=== PATIENT | male | born 1955 | race Two or more races ===

== ENCOUNTER 2023-05-11 07:17 | Outpatient (OUT) | payer MEDICARE, SELFPAY ==
[2023-05-11 07:51] LABS: Basophils Absolute Auto 0.1 10^3/uL (0.0-0.1); Eosinophils Absolute Auto 0.5 10^3/uL (0.0-0.7); Eosinophils Percent Auto 7.6 % (0.9-7.0); Hematocrit 40.8 % (42.0-54.0); Hemoglobin 13.5 g/dL (14.0-18.0); Immature Granulocytes Abs Auto 0.02 10^3/uL (0.00-0.03); Immature Granulocytes Pct Auto 0.3 % (0.0-0.5); Lymphocytes Percent Auto 33.1 % (20.5-60.0); Mean Corpuscular HGB Conc 33.1 g/dL (29.9-35.2); Mean Corpuscular Hemoglobin 30.3 pg (25.9-34.0); Mean Corpuscular Volume 91.5 fL (80.0-94.0); Mean Platelet Volume 10.4 fL (9.5-13.5); Monocytes Absolute Auto 0.7 10^3/uL (0.3-0.8); Monocytes Percent Auto 11.9 % (1.7-12.0); Neutrophils Absolute Auto 2.7 10^3/uL (1.4-6.5); Neutrophils Percent Auto 46.1 % (43.0-75.0); Platelet Count 190 10^3/uL (150-450); Red Blood Count 4.46 10^6/uL (4.70-6.10); Red Cell Distribution Width 12.4 % (11.0-15.0)
[2023-05-11 08:56] LABS: Percent Iron Saturation 33.4 %
== END 2023-05-11 07:18 | disposition home or self-care (01) ==
LOC: LAB 07:21
PROVIDERS: PCP Internal Medicine; Visit Provider Internal Medicine
DX: D62 Acute posthemorrhagic anemia (principal)
CPT/HCPCS: 36415; 82607; 82728; 82746; 83540; 83550; 85025

== ENCOUNTER 2023-10-24 06:33 | Outpatient (OUT) | payer MEDICARE, SELFPAY ==
[2023-10-24 14:00] LABS: Prostate Specific Antigen Dx <0.13 ng/mL (<=4.00)
== END 2023-10-24 06:34 | disposition home or self-care (01) ==
PROVIDERS: PCP Internal Medicine; Visit Provider Physician Assistant
DX: Z85.46 Personal history of malignant neoplasm of prostate (principal)
CPT/HCPCS: 36415; 84153

== ENCOUNTER 2023-11-28 06:43 | Outpatient (OUT) | payer MEDICARE, SELFPAY ==
--- OUTSIDE RECORDS SUMMARY | 2023-11-28 06:47 | XMS_ITS | CCD ---
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 Name Role Phone JUVENAL DAVILA Unavailable Unavailable AHMED, MOHAMMED S Unavailable Unavailable BOMMANA, VENUGOPALA Unavailable Unavailable NARWAL, RAWAN Unavailable Unavailable SHELKE, MALISSA R Unavailable Unavailable JUVENAL DAVILA Unavailable Unavailable HILDA SKINNER Unavailable Unavailable JUVENAL DAVILA Primary Care Physician [phone] JENA, DR HURLEY Admitting Unavailable JENA, DR HURLEY Attending Unavailable JENA, DR HURLEY Primary Care Unavailable JENA, DR HURLEY Consulting Unavailable MISC, DR ASH Admitting Unavailable MISC, DR ASH Attending Unavailable JENA, DR HURLEY Primary Care Unavailable MISC, DOCTOR Consulting Unavailable Juvenal Davila Unavailable RAINER FRY Attending Unavailab le Allergies Allergy Classification Reported Allergen(s) Allergy Type Date of Onset Reaction(s) Facility (1 source) patient allergy list reviewed by nurse or physicia Propensity to adverse reactions Comment:Done [facility] Other (1 source) No Known Medication Allergies; Translations: [No Known Medication Allergies] Propensity to adverse reactions (disorder) [facility] Repository Medications Current Medications Medication Drug Class(es) Dates Sig (Normalized) Sig (Original) aspirin 81 mg delayed release oral tablet (7 sources) Platelet Aggregation Inhibitor, Nonsteroidal Anti-inflammatory Drug Start: 11-14-2023 take 81 mg by mouth once daily Aspirin Active 81 MG PO Daily November 14, 2023 12:00am Start: 06-30-2021 take 1 mg by mouth once daily aspirin 81 mg Oral EC Tab mg tab(s), Oral, Daily, Refills(s) 0 Start Date: 06/30/21 Status: Ordered atorvastatin 40 mg oral tablet (6 sources) HMG-CoA Reductase Inhibitor Start: 11-14-2023 take 40 mg by mouth once daily in the evening Atorvastatin Active 40 MG PO Every evening November 14, 2023 12:00am take 1 tablet by kerrie th once daily in the evening Atorvastatin Calcium 40 MG TAKE 1 TABLET BY MOUTH EVERY DAY IN THE EVENING Active [id number] 0.3 ml EPINEPHrine 1 mg/ml auto-injector (6 sources) alpha-Adrenergic Agonist, beta-Adrenergic Agonist, Catecholamine Start: 11-14-2023 Epinephrine Activ e IM November 14, 2023 12:00am INJECT 1 PEN NEEDED FOR BEE STING AFTER WHICH SHOULD BE EVALUATED IN ER EpiPen 2-Michael 0.3 MG/0.3ML as directed Injection Active 24 hr metoprolol succinate 25 mg extended release oral tablet (7 sources) beta-Adrenergic Stacia Start: 11-14-2023 take 25 mg by mouth once daily Metoprolol Succinate Active 25 MG PO Daily November 14, 2023 12:00am Start: 06-30-2021 take 1 mg by mouth once daily Metoprolol succinate 25 mg ER Tablet mg, Oral, Daily, Refills(s) 0 Start Date: 06/30/21 Status: Ordered take 1 tablet by kerrie th once daily Metoprolol Succinate ER 25 MG TAKE 1 TABLET BY MOUTH EVERY DAY Active Problems Active Problems Problem Classification Problem Date Documented Date Episodic/Chronic Acute cerebrovascular disease (2 sources) Hematoma of subdural space of neuraxis; Translations: [Subdural hemorrhage] Onset: 01-31-2018 07-01-2021 Chronic Acute posthemorrhagic anemia (7 sources) Acute posthemorrhagic anemia; Translations: [Acute posthemorrhagic anemia] Episodic Allergic reactions (6 sources) Allergy to bee venom; Translations: [Bee allergy status] Episodic Cancer of prostate (11 sources) Malignant tumor of prostate; Translations: [Carcinoma of prostate] 05-16-2019 Chronic Cancer of prostate (6 sources) Personal history of malignant neoplasm of prostate; Translations: [History of malignant neoplasm of prostate] Onset: 09-27-2022 Episodic Deficiency and other anemia (1 source) Other specified anemias Episodic Diabetes mellitus without complication (12 sources) Impaired fasting glucose; Translations: [Impaired fasting glycemia] Onset: 11-13-2022 Episodic Disorders of lipid metabolism (18 sources) Hyperlipidemia; 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] Onset: 05-06-2015 07-02-2019 Chronic Essential hypertension (13 sources) Hypertensive disorder; Translations: [Essential (primary) hypertension] Onset: 11-13-2022 07-02-2019 Chronic Genitourinary symptoms and ill-defined conditions (1 source) Genuine stress incontinence 05-16-2019 Chronic Genitourinary symptoms and ill-defined conditions (2 sources) Increased frequency of urination; Translations: [Nocturia] 07-08-2019 Episodic Heart valve disorders (12 sources) Aortic valve stenosis; Translations: [Aortic valve disorder] 06-30-2021 Chronic Heart valve disorders (7 sources) Abnormal heart beat; Translations: [Other abnormalities of heart beat] Onset: 05-06-2015 11-14-2023 Episodic Hyperplasia of prostate (3 sources) Benign prostatic hyperplasia; Translations: [Nocturia due to benign prostatic hypertrophy] Onset: 05-06-2015 10-04-2022 Chronic Immunizations and screening for infectious disease (1 source) Vaccination given; Translations: [Encounter for immunization] Episodic Other aftercare (2 sources) Other longterm (current) drug therapy; Translations: [OTH 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 CURRENT DRUG THERAPY] Onset: 11-13-2022 Episodic Other aftercare (1 source) Long-term current use of drug therapy; Translations: [Other continuous churn buttermaker (current) drug therapy] Episodic Other and unspecified benign neoplasm (1 source) Lymphangioma, any site; Translations: [Lymphangioma, any site] Onset: 01-21-2018 Episodic Other and unspecified benign neoplasm (1 source) Polyp of ascending colon 06-30-2021 Episodic Other and unspecified benign neoplasm (2 sources) Benign neoplasm of ascending colon; Translations: [Benign neoplasm of ascending colon] 08-10-2021 Episodic Other and unspecified benign neoplasm (1 source) Benign neoplasm of sigmoid colon 08-10-2021 Episodic Other and unspecified benign neoplasm (1 source) History of polyp of colon 07-08-2021 Episodic Other and unspecified benign neoplasm (5 sources) Benign neoplasm of colon; Translations: [Benign neoplasm of ascending colon] Episodic Other and unspecified benign neoplasm (1 source) Adenomatous polyp of colon ; Translations: [Benign neoplasm of ascending colon] 11-14-2023 Episodic Other circulatory disease (1 source) H/O: cardiovascular disease; Translations: [Personal history of other diseases of the circulatory system] Episodic Other diseases of bladder and urethra (1 source) Urethral spasm 05-16-2019 Episodic Other fractures (1 source) Compression fracture of lumbar spine 07-02-2019 Episodic Other injuries and conditions due to external causes (1 source) History of fall; Translations: [History of falling] Episodic Other male genital disorders (1 source) Secondary erectile dysfunction; Translations: [Erectile dysfunction following radical cystectomy] Onset: 10-04-2022 Chronic Other male genital disorders (1 source) Erectile dysfunction following radical cystectomy 09-06-2021 Chronic Other nutritional; endocrine; and metabolic disorders (1 source) Overweight; Translations: [Overweight] Episodic Other upper respiratory disease (6 sources) Allergic rhinitis due to pollen; Translations: [Allergic rhinitis due to pollen] Chronic Residual codes; unclassified (1 source) Risk of subacute bacterial endocarditis 07-08-2021 Episodic Spondylosis; intervertebral disc disorders; other back problems (1 source) Lumbosacral spondylosis without myelopathy; Translations: [Spondylosis without myelopathy or radiculopathy, lumbar region] Onset: 10-11-2016 Chronic Unclassified (1 source) Other specified cough; Translations: [Other specified cough] Onset: 08-29-2018 Past or Other Problems Problem Classification Problem Date Documented Da te Episodic/Chronic Bacterial infection; unspecified site (1 source) Bacterial infectious disease; Translations: [Bacterial infection, unspecified, in conditions classified elsewhere and of unspecified site] Onset: 10-05-2016 Episodic Malaise and fatigue (2 sources) Other fatigue; Translations: [Malaise and fatigue] Onset: 04-28-2016 Episodic Other circulatory disease (1 source) Elevated blood-pressure reading without diagnosis of hypertension; Translations: [Elevated blood-pressure reading, without diagnosis of hypertension] Onset: 04-12-2017 Episodic Other nutritional; endocrine; and metabolic disorders (4 sources) Body mass index 25-29 - overweight; Translations: [Body mass index 26.0-26.9, adult] Onset: 11-09-2015 07-08-2021 Episodic Other screening for suspected conditions (not mental disorders or infectious disease) (1 source) Raised prostate specific antigen; Translations: [Elevated prostate specific antigen (PSA)] Onset: 06-04-2016 Episodic Other upper respiratory infections (1 source) Acute maxillary sinusitis; Translations: [Acute maxillary sinusitis, unspecified] Onset: 10-05-2016 Episodic Residual codes; unclassified (1 source) Acquired absence of genital organ; Translations: [Acquired absence of organ, genital organs] Onset: 04-18-2019 Episodic Sprains and strains (1 source) Late effect of sprain AND/OR strain without tendon injury; Translations: [Sprain of deltoid ligament of right ankle, sequela] Onset: 04-12-2017 Episodic Results Test Name Value Interpretation Reference Range Facility Screenson 11-02-2023 Screens [id number] Normal [facility] Patient Educationon 10-30-19 Patient Education Urology Erectile Dysfunction Erectile dysfunction (ED) is the inability to get or keep an erection in order to have sexual intercourse. ED is considered a symptom of an underlying disorder and is not considered a disease. ED may include: ? Inability to get an erection. ? Lack of enough hardness of the erection to allow penetration. ? Loss of erection before sex is finished. What are the causes? This condition may be caused by: ? Physical causes, such as: ? Artery problems. This may include heart disease, high blood pressure, atherosclerosis, and diabetes. ? Hormonal problems, such as low testosterone. ? Obesity. ? Nerve problems. This may include back or pelvic injuries, multiple sclerosis, Parkinson's disease, spinal cord injury, and stroke. ? Certain medicines, such as: ? Pain relievers. ? Antidepressants. ? Blood pressure medicines and water pills (diuretics). ? Cancer medicines. ? Antihistamines. ? Muscle relaxants. ? Lifestyle factors, such as: ? Use of drugs such as marijuana, cocaine, or opioids. ? Excessive use of alcohol. ? Smoking. ? Lack of physical activity or exercise. ? Psychological causes, such as: ? Anxiety or stress. ? Sadness or depression. ? Exhaustion. ? Fear about sexual performance. ? Guilt. What are the signs or symptoms? Symptoms of this condition include: ? Inability to get an erection. ? Lack of enough hardness of the erection to allow penetration. ? Loss of the erection before sex is finished. ? Sometimes having normal erections, but with frequent unsatisfactory episodes. ? Low sexual satisfaction in either partner due to erection problems. ? A curved penis occurring with erection. The curve may cause pain, or the penis may be too curved to allow for intercourse. ? Never having nighttime or morning erections. How is this diagnosed? This condition is often diagnosed by: ? Performing a physical exam to find other diseases or specific problems with the penis. ? Asking you detailed questions about the problem. ? Doing tests, such as: ? Blood tests to check for diabetes mellitus or high cholesterol, or to measure hormone levels. ? Other tests to check for underlying health conditions. ? An ultrasound exam to check for scarring. ? A test to check blood flow to the penis. ? Doing a sleep study at home to measure nighttime erections. How is this treated? This condition may be treated by: ? Medicines, such as: ? Medicine taken by mouth to help you achieve an erection (oral medicine). ? Hormone replacement therapy to replace low testosterone levels. ? Medicine that is injected into the penis. Your health care provider may instruct you how to give yourself these injections at home. ? Medicine that is delivered with a short applicator tube. The tube is inserted into the opening at the tip of the penis, which is the opening of the urethra. A tiny pellet of medicine is put in the urethra. The pellet dissolves and enhances erectile function. This is also called MUSE (medicated urethral system for erections) therapy. ? Vacuum pump. This is a pump with a ring on it. The pump and ring are placed on the penis and used to create pressure that helps the penis become erect. ? Penile implant surgery. In this procedure, you may receive: ? An inflatable implant. This consists of cylinders, a pump, and a reservoir. The cylinders can be inflated with a fluid that helps to create an erection, and they can be deflated after intercourse. ? A semi-rigid implant. This consists of two silicone rubber rods. The rods provide some rigidity. They are also flexible, so the penis can both curve downward in its normal position and become straight for sexual intercourse. ? Blood vessel surgery to improve blood flow to the penis. During this procedure, a blood vessel from a different part of the body is placed into the penis to allow blood to flow around (bypass) damaged or blocked blood vessels. ? Lifestyle changes, such as exercising more, losing weight, and quitting smoking. Follow these instructions at home: Medicines ? Take itwf-sui-lpicxcs and prescription medicines only as told by your health care provider. Do not increase the dosage without first discussing it with your health care provider. ? If you are using self-injections, do injections as directed by your health care provider. Make sure you avoid any veins that are on the surface of the penis. After giving an injection, apply pressure to the injection site for 5 minutes. ? Talk to your health care provider about how to prevent headaches while taking ED medicines. These medicines may cause a sudden headache due to the increase in blood flow in your body. General instructions ? Exercise regularly, as directed by your health care provider. Work with your health care provider to lose weight, if needed. ? Do not use any products that contain nicotine or tobacco. These products include cig (more content not included)... Normal [facility] Provider Letteron 10-30-2023 Provider Letter (Inserted Image. Radha ble to display) JUVENAL DAVILA, [address] [place] [address] Re: RAMÓN ACUÑA Date of : [address] JENA CHA, JUVENAL SHARMAIVEROSRAMÓN was evaluated at [facility] 10/09/2023 08:30:00 As this patient has been stable, they will be released back to your care. We request that you continue to check PSA annually, as he does have history of prostate cancer treated in Sep 2016. Should the patient develop new symptoms, worsening condition, or abnormal imaging/labs in the future, do not hesitate to refer them back. Thanks! Provider Signature: Rohini Fry PA-C Physician Legger Press Operator [facility] [place] [address] Normal [facility]rology Office/Clinic Noteon 10-30-2023 Urology Office/Clinic Note Chief Complaint 1 yr fu HPI Staff 1yr PSA DX: Hx of Prostate & Impotence S/p radical prostatectomy w/ pelvic lymphadenectomy done 10/18/16 *No Urology Meds PSA 10/24/23 <0.13 Dysuria: no Incomplete bladder emptying: no Hematuria: no Frequency: intermittently Urgency: no Nocturia: 1x Stream: good stream Leaking: no Post void dripping: no Wearing pads/ Depends: no Urge incontinence:no Stress incontinence: no Incontinence without Sensory Awareness: no Abdominal pain: no Flank pain: no Sexual complaints: no Review of Systems PHQ Score Initial Depression Screen Score: 0 SCORE no fever, chills, malaise, myalgia. no rash/lesions. no chest pain, palpitations, or SOB. no abdominal pain, nausea, vomiting. no unilateral calf swelling, redness, pain Physical Exam Vitals & Measurements HR: 75(Peripheral) RR: 16 BP: 130/82 HT: 69 in HT: 175 cm WT: 82 kg WT: 180.4 lb BMI: 26.78 General: nontoxic, NAD Mouth: moist mucosa Lungs: normal respiratory effort Cardio: regular rate, good distal perfusion Abdomen: nondistended, no suprapubic distention or tenderness, no CVA tenderness Neurologic: Grossly normal Skin: No rashes or suspicious lesions Assessment/Plan 1. Prostate CA (C61: Malignant neoplasm of prostate) PSA: 08/30/20 - 0.05 09/27/22 - <0.13 10/24/23 - <0.13 S/p TRUS/bx done on 06/28/16. S/p radical prostatectomy w/ pelvic lymphadenectomy done 10/18/16. Path Tanner 6 and Tanner 7. Negative nodes and negative SV. UA today negative for blood and infection. IPSS 3, QOL 1. Denies any UTIs, kidney stones, infections, blood, since prior encounter. Denies any bothersome urinary sxs. PSA remains as low as it can be. Offered continued scheduled follow up with our clinic vs following up PRN. Pt prefers the latter. We will ensure PCP continues to order annual PSA. Letter sent. Ordered: E&M of Est. Patient Low 20-29 Min 04892 2. 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 advises not bothersome today. does now wish to discuss tx options Ordered: E&M of Est. Patient Low 20-29 Min 43109 3. BMI 26.0-26.9,adult (Z68.26: Body mass index [BMI] 26.0-26.9, adult) healthy diet encouraged Ordered: Body Mass Index (BMI) documented 3008F E&M of Est. Patient Low 20-29 Min 86566 Orders: Current tobacco non-user 1036F Depression Screening Negative 3352F Influenza immunization status assessed 1030F Most recent diastolic blood pressure 80-89 mm Hg 3079F Patient screen for fall risk: no falls in last year or 1 fall with no injury in last year 1101F Systolic BP <130 mm Hg (Most Recent) 3074F Urnls Dip Stick Auto w/o Microscopy POC 09120 Follow-up With When Contact Information LISANDRA SPEAR, ROHINI Hoover, URL Only if needed [address] [place] [address] [facility] (1) Additional Instructions: Patient Education Erectile Dysfunction Problem List/Past Medical History Ongoing Aortic valve stenosis Benign neoplasm of ascending colon BMI 25.0-25.9,adult BPH (benign prostatic hyperplasia) BPH associated with nocturia Compression fracture of lumbar spine, non-traumatic History of prostate cancer Hyperlipidemia Hypertension Impotence Need for SBE (subacute bacterial endocarditis) prophylaxis Nocturia Personal history of colonic polyps Prostate CA Stress incontinence Subdural hematoma Tubular adenoma of colon Urethral spasm Urinary frequency Historical Ascending colon polyp Procedure/Surgical History Colonoscopy (07/27/2021), Replacement of aortic valve (02/14/2021), Cardiac catheterization (05/27/2020), Craniotomy (01/25/2018), Radical prostatectomy with pelvic lymphadenectomy (10/18/2016), Transrectal biopsy of prostate using ultrasound (US) guidance (06/28/2016), Brain, Colonoscopy, Cystectomy, ORIF - Open reduction and internal fixation of fracture. Medications aspirin 81 mg Oral EC Tab, Oral, Daily atorvastatin 40 mg Tab Metoprolol succinate 25 mg ER Tablet, Oral, Daily Allergies No Known Allergies No Known Medication Allergies Social History Tobacco Never (less than 100 in lifetime) Tobacco Use:. Never Smokeless Tobacco Use:., 10/30/2023 Family History Alcoholism: Father. Hypertension: Mother. Immunizations Vaccine Date Status Comments influenza virus vaccine, inactivated 05/22/2022 Recorded SARS-CoV-2 (COVID-19) mRNA-1273 vaccine 02/22/2022 Recorded 2022-10-04: [id number] SARS-CoV-2 (COVID-19) mRNA-1273 vaccine 07/11/2021 Recorded influenza virus vaccine, inactivated 06/2021 Recorded SARS-CoV-2 (COVID-19) Ad26 vaccine 05/2021 Recorded pneumococcal 23-valent vaccine 01/21/2021 Recorded SARS-CoV-2 (COVID-19) Ad26 vaccine 11/2020 Recorded SARS-CoV-2 (COVID-19) mRNA-1273 vaccine 11/09/2020 Recorded SARS-CoV-2 (COVID-19) Ad26 vaccine 10/2020 Recorded SARS-CoV-2 (COVID-19) mRNA-1273 vaccine 10/14/2020 Recorded influenza virus vaccine, inacti (more content not included)... [facility] Comment on above: Result Comment: Elec tronically Signed By: LISANDRA SPEAR, ROHINI Hoover\.br\Date and Time Signed: 10/30/23 12:29 EST Lab Reportson 10-25-2023 Lab Reports [id number] [facility] No Panel Informationon 10-24 Prostate Specific Antigen Total <0.13 ng/mL <=4.00 [facility] Provider Letteron 09-13-2023 Provider Letter (Inserted Image. Radha ble to display) September 13, 2023 [place] [address] : 1955 Dear Ramón , We have been trying to reach you with no success. You have an appointment with Rohini Fry on Monday, October 09 which will need to be rescheduled since she will be out of the office that day. Please contact the office at the number listed below to get this appointment rescheduled at your earliest convenience. Thank you for your prompt attention to this matter. Sincerely, [facility] [address], [place] [address] [facility] A1C with Estimated Average G luon 11-06-2022 A1C with Estimated Average Glu [facility] Other Basic Metabolic Panelon 10-25 Calcium [Mass/Vol] 9.0086894 mg/dL 8.5-10 .1 mg/dL [facility] Other CO2 [Moles/Vol] 27.74654060 mmol/L 21.0-3 2.0 mmol/L [facility] Other Creatinine [Mass/Vol] 0.95129049 mg/dL Critically low 0.70-1.30 mg/dL [facility] Other Potassium [Moles/Vol] 3.75621710 mmol/L 3.5-5.1 mmol/L [facility] Other Urea nitrogen [Mass/Vol] 11.8904247 mg/dL 7.0-18.0 mg/dL [facility] Other Basic Metabolic Panel see note [facility] Other Basic Metabolic Panel 142 mmol/L 136-145 mmol/L [facility] Other Basic Metabolic Panel 93 mg/dL 74-106 mg/dL [facility] Other Basic Metabolic Panel >60 mL/min/1.73m2 >=60 mL/min/1.73 m2 [facility] Other CBC AUTO DIFFon 11-06-2022 BASO # 0.1 103/ul Normal 0.0-0.1 [facility] Comment on above: Performed By: #### C BC #### [facility] [address] [place] [address] Dr. Serafin Bloom Basophils/100 WBC (Bld) 1.0 % Normal 0.2-2.0 [facility] Comment on above: Performed By: #### C BC #### [facility] [address] [place] [address] Dr. Serafin Bloom EO # 0.3 103/ul Normal 0.0-0.7 [facility] Comment on above: Performed By: #### C BC #### [facility] [address] [place] [address] Dr. Serafin Bloom Eosinophils/100 WBC (Bld) 4.7 % Normal 0.9-7.0 [facility] Comment on above: Performed By: #### C BC #### [facility] [address] [place] [address] Dr. Serafin Bloom Erythrocyte distribution width (RBC) [Ratio] 12.2 % Normal 11.0-15.0 [facility] Comment on above: Performed By: #### C BC #### [facility] [address] [place] [address] Dr. Serafin Bloom Hematocrit (Bld) [Volume fraction] 42.1 % Normal 42.0-54.0 [facility] Comment on above: Performed By: #### C BC #### [facility] [address] [place] [address] Dr. Serafin Bloom Hemoglobin (Bld) [Mass/Vol] 13.8 g/dL Critically low 14.0-18.0 [facility] Comment on above: Performed By: #### C BC #### [facility] [address] [place] [address] Dr. Serafin Bloom IG # 0.02 10e3/ul Normal 0.00-0.03 [facility] Comment on above: Performed By: #### C BC #### [facility] [address] [place] [address] Dr. Serafin Bloom IG % 0.3 % Normal 0.0-0.5 [facility] Comment on above: Performed By: #### C BC #### [facility] [address] [place] [address] Dr. Serafin Bloom LYMPH # 2.6 103/ul Normal 1.2-3.8 [facility] Comment on above: Performed By: #### C BC #### [facility] Laboratory [address] [place] [address] Dr. Searfin Bloom Lymphocytes/100 WBC (Bld) 36.9 % Normal 20.5-60.0 [facility] Comment on above: Performed By: #### C BC #### [facility] [address] [place] [address] Dr. Serafin Bloom MANUAL DIFF REQ NO Normal [facility] Comment on above: Performed By: #### C BC #### [facility] [address] [place] [address] Dr. Serafin Bloom MCH (RBC) [Entitic mass] 29.1 pg Normal 25.9-34.0 [facility] Comment on above: Performed By: #### C BC #### [facility] [address] [address] [address] Serafin Bloom MCHC (RBC) [Mass/Vol] 32.8 g/dL Normal 29.9-35.2 [facility] Comment on above: Performed By: #### C BC #### [facility] [address] [place] [address] Dr. Serafin Bloom MCV (RBC) [Entitic vol] 88.6 fL Normal 80.0-94.0 [facility] Comment on above: Performed By: #### C BC #### [facility] [address] [place] [address] Dr. Serafin Bloom MONO # 0.7 103/ul Normal 0.3-0.8 [facility] Comment on above: Performed By: #### C BC #### [facility] [address] [place] [address] Dr. Serafin Bloom Monocytes/100 WBC (Bld) 9.4 % Normal 1.7-12.0 [facility] Comment on above: Performed By: #### C BC #### [facility] [address] [place] [address] Dr. Serafin Bloom NEUT # 3.3 103/ul Normal 1.4-6.5 [facility] Comment on above: Performed By: #### C BC #### [facility] [address] [place] [address] Dr. Serafin Bloom Neutrophils/100 WBC (Bld) 47.7 % Normal 43.0-75.0 [facility] Comment on above: Performed By: #### C BC #### [facility] [address] [place] [address] Dr. Serafin Bloom Platelet mean volume (Bld) [Entitic vol] 10.2 fL Normal 9.5-13.5 [facility] Comment on above: Performed By: #### C BC #### [facility] [address] [place] [address] Dr. Serafin Bloom PLT 192 103/ul Normal 150-450 [facility] Comment on above: Performed By: #### C BC #### [facility] [address] [place] [address] Dr. Serafin Bloom RBC 4.75 106/ul Normal 4.70-6.10 [facility] Comment on above: Performed By: #### C BC #### [facility] [address] [place] [address] Dr. Serafin Bloom WBC 7.0 103/ul Normal 4.0-11.0 [facility] Comment on above: Performed By: #### C BC #### [facility] [address] [place] [address] Dr. Serafin Bloom Complete Blood Count and Dif marisela 11-06-2022 Anisocytosis Ql (Bld) [facility] [employer] Other Basophilic stippling LM Ql (d) [facility] [employer] Other RBC morphology finding Nom (d) [facility] [employer] Other GLYCOHEMOGLOBIN A1Con 2022 ADA RECOMMENDATION SEE BELOW Normal [facility] Comment on above: Result Comment: ADA RECOMMENDED LIMIT 4.0 - 6.0 ADA THERAPEUTIC TARGET < 7.0 ACTION SUGGESTED > 7.0 Performed By: #### A 1C #### [facility] [address] [place] [address] Dr. Serafin Bloom Glucose [Mass/Vol] 108 mg/dL Normal [facility] Comment on above: Performed By: #### A 1C #### [facility] [address] [place] [address] Dr. Serafin Bloom HbA1c (Bld) [Mass fraction] 5.4 % Normal 4.5-6.2 [facility] Comment on above: Performed By: #### A 1C #### [facility] [address] [place] [address] Dr. Serafin Bloom LIPID PROFILEon 11-06-2022 CHOL-HDL RATIO NORM SEE BELOW Normal [facility] Comment on above: Result Comment: 3.3 - 4.4 LOW RISK 4.4 - 7.1 AVERAGE RISK 7.1 - 11.0 MODERATE RISK >11.0 HIGH RISK Performed By: #### A LT, LIPID, BMP #### [facility] [address] [address] [address] Serafin Bloom Cholesterol [Mass/Vol] 145 mg/dL <=200 mg/dL [facility] Comment on above: Performed By: #### A LT, LIPID, BMP #### [facility] [address] [address] [address] Serafin Bloom Cholesterol in HDL [Mass/Vol] 47 mg/dL 40-60 mg/dL [facility] Comment on above: Performed By: #### A LT, LIPID, BMP #### [facility] [address] [address] [address] Serafin Bloom Cholesterol in LDL [Mass/Vol] 67.6 mg/dL Normal [facility] Comment on above: Performed By: #### A LT, LIPID, BMP #### [facility] [address] [place] [address] Dr. Serafin Bloom Cholesterol.total/ Cholesterol in HDL [Mass ratio] 3.1 {ratio} [facility] Comment on above: Performed By: #### A LT, LIPID, BMP #### [facility] [address] [place] [address] Dr. Serafin Bloom HDL NORMAL > or = 60 mg/dl - LO W CARDIOVASCULAR RISK <40 mg/dl - HIGH CARDIOVASCULAR RISK Normal [facility] Comment on above: Performed By: #### A LT, LIPID, BMP #### [facility] [address] [address] [address] Serafin Bloom LDL CALC NORMAL SEE BELOW Normal [facility] Comment on above: Result Comment: <100 mg/dl OPTIMAL 100 - 129 mg/dl NEAR OR ABOVE OPTIMAL 130 - 159 mg/dl BORDERLINE HIGH 160 - 189 mg/dl HIGH >190 mg/dl VERY HIGH Performed By: #### A LT, LIPID, BMP #### [facility] [address] [address] [address] Serafin Bloom Triglyceride [Mass/Vol] 152 mg/dL Critically high <=150 mg/dL [facility] Comment on above: Performed By: #### A LT, LIPID, BMP #### [facility] [address] [address] [address] Serafin Bloom VLDL CALC 30.4 mg/dL Normal [facility] Comment on above: Performed By: #### A LT, LIPID, BMP #### [facility] [address] [address] [address] Serafin Bloom Lipid Panelon 11-06-2022 Lipid Panel > or = 60 mg/dl - LO W CARDIOVASCULAR RISK <40 mg/dl - HIGH CARDIOVASCULAR RISK [facility] [employer] Other Lipid Panel SEE BELOW [employer] Other Lipid Panel 67.6 mg/dL [facility] [employer] Other Lipid Panel 30.4 mg/dL [facility] [employer] Other PROF CHEM 8 (BAS METB)on Anion gap [Moles/Vol] 12.4 mmol/L [facility] Comment on above: Performed By: #### A LT, LIPID, BMP #### [facility] [address] [place] [address] Dr. Serafin Bloom Calcium [Mass/Vol] 9.3 mg/dL Normal 8.5-10.1 [facility] Comment on above: Performed By: #### A LT, LIPID, BMP #### [facility] [address] [place] [address] Dr. Serafin Bloom Chloride [Moles/Vol] 106 mmol/L 98-107 mmol/L [facility] Comment on above: Performed By: #### A LT, LIPID, BMP #### [facility] [address] [place] [address] Dr. Serafin Bloom CO2 [Moles/Vol] 27.3 mmol/L Normal 21.0-32.0 [facility] Comment on above: Performed By: #### A LT, LIPID, BMP #### [facility] [address] [place] [address] Dr. Serafin Bloom Creatinine [Mass/Vol] 0.66 mg/dL Critically low 0.70-1.30 [facility] Comment on above: Performed By: #### A LT, LIPID, BMP #### [facility] [address] [address] [address] Serafin Bloom EGFR-AF IRANIAN >60 Normal >=60 [facility] Comment on above: Performed By: #### A LT, LIPID, BMP #### [facility] [address] [place] [address] Dr. Serafin Bloom EGFR-NON AF IRANIAN >60 Normal >=60 [facility] Comment on above: Performed By: #### A LT, LIPID, BMP #### [facility] [address] [address] [address] Serafin Bloom Glucose [Mass/Vol] 93 mg/dL Normal 74-106 [facility] Comment on above: Performed By: #### A LT, LIPID, BMP #### [facility] [address] [place] [address] Dr. Serafin Bloom Potassium [Moles/Vol] 3.7 mmol/L Normal 3.5-5.1 [facility] Comment on above: Performed By: #### A LT, LIPID, BMP #### [facility] [address] [place] [address] Dr. Serafin Bloom Sodium [Moles/Vol] 142 mmol/L Normal 136-145 [facility] Comment on above: Performed By: #### A LT, LIPID, BMP #### [facility] [address] [place] [address] Dr. Serafin Bloom Urea nitrogen [Mass/Vol] 11.0 mg/dL Normal 7.0-18.0 [facility] Comment on above: Performed By: #### A LT, LIPID, BMP #### [facility] [address] [place] [address] Dr. Serafin Bloom Urea nitrogen/Creatinin e [Mass ratio] 16.7 mg/mg [facility] Comment on above: Performed By: #### A LT, LIPID, BMP #### [facility] [address] [place] [address] Dr[facility]22 ALT [Catalytic activity/Vol] 38 U/L 16-63 U/L [facility] Comment on above: Performed By: #### A LT, LIPID, BMP #### [facility] [address] [address] [address] HEAD WO CONTRASTon 2017 CT HEAD WO CONTRAST EXAMINATION:CT OF THE HEAD WITHOUT CONTRAST 02/06/2018 8:33 amTECHNIQUE:CT of the head was performed without the administration of intravenouscontrast. Dose modulation, iterative reconstruction, and/or weight basedadjustment of the mA/kV was utilized to reduce the radiation dose to as lowas reasonably achievable.COMPARISON:12/27 CT brainHISTORY:ORDERING SYSTEM PROVIDED HISTORY: HygromaTECHNOLOGIST PROVIDED HISTORY:Reason for exam:->Follow up post op left crani for SDH evacuationFINDINGS:BRAIN/V ENTRICLES: Status post left parietal craniotomy. Left frontoparietalhypodense subdural fluid collection measuring 13 mm in thickness, unchangedby comparison. There is a mass effect upon the adjacent frontoparietalcortex. Surgical drain in the left subdural space has been removed. Therehas been resolution of the left subdural air from surgical procedure. Therehas been interval development of left superior frontal encephalomalaciaadjacent to the craniotomy site. There is no acute intracranial hemorrhageor midline shift. No abnormal extra-axial fluid collection. The willams-whitedifferentiation is maintained without evidence of an acute infarct. There isno evidence of hydrocephalus.ORBITS: The visualized portion of the orbits demonstrate no acute abnormality.SINUSES: The visualized paranasal sinuses reveal mild M polypoidmucoperiosteal thickening in the right maxillary sinus. And mastoid aircells demonstrate no acute abnormality.SOFT TISSUES/SKULL: No acute abnormality of the visualized skull or softtissues.IMPRESSION: Left frontoparietal hypodense subdural fluid collection, unchanged bycomparison. There is a mass-effect upon the adjacent frontoparietal cerebralcortex. No midline shift.Encephalomalacia in the left superior frontal lobe adjacent to the leftcraniotomy site, a new findingInterpreted by:JIHAN Monsivaisigned by:Delmi Ahumada MD02/06/18Final result Normal [facility] Basic Metabolic Profon 01-24 (cont.) Normal [facility] Comment on above: Result Comment: Aver age GFR for 60-69 years old: 85 mL/min/1.73sq mChronic Kidney Disease: <60 mL/min/1.73sq mKidney failure: <15 mL/min/1.73sq meGFR calculated using average adult body mass. Additional eGFR calculator available at:http://[email or web address]_crcl_[email or web address] [address] Performed By: #### C DP, PT, PTT, CP, CRP, TSHX, SED ####[address] [address] Anion gap 12 mmol/L Normal 9-17 [facility] Comment on above: Performed By: #### C DP, PT, PTT, CP, CRP, TSHX, SED ####[address] [address] Calcium 7.9 mg/dL Low 8.6-10.4 [facility] Comment on above: Performed By: #### C DP, PT, PTT, CP, CRP, TSHX, SED ####[address] [address] Chloride 109 mmol/L High 98-107 [facility] Comment on above: Performed By: #### C DP, PT, PTT, CP, CRP, TSHX, SED ####[facility] [id number] [place] [address] CO2 18 mmol/L Low 20-31 [facility] Comment on above: Performed By: #### C DP, PT, PTT, CP, CRP, TSHX, SED ####[facility] [address] [place] [address] Creatinine 0.45 mg/dL Low 0.70-1.20 [facility] Comment on above: Performed By: #### C DP, PT, PTT, CP, CRP, TSHX, SED ####[address] [address] eGFR (non-black) mL/min/{1.73_m2} Normal >60 [facility] Comment on above: Performed By: #### C DP, PT, PTT, CP, CRP, TSHX, SED ####[address] [address] Glucose mass conc 113 mg/dL High 70-99 [facility] Comment on above: Performed By: #### C DP, PT, PTT, CP, CRP, TSHX, SED ####[address] [address] Potassium molar conc 3.9 mmol/L Normal 3.7-5.3 [facility] Comment on above: Performed By: #### C DP, PT, PTT, CP, CRP, TSHX, SED ####[address] [address] Sodium 139 mmol/L Normal 135-144 [facility] Comment on above: Performed By: #### C DP, PT, PTT, CP, CRP, TSHX, SED ####[address] [address] Urea nitrogen 17 mg/dL Normal 8-23 [facility] Comment on above: Performed By: #### C DP, PT, PTT, CP, CRP, TSHX, SED ####[address] [address] BUN/CRE Ratio NOT REPORTED Normal 9-20 [facility] Comment on above: Performed By: #### C DP, PT, PTT, CP, CRP, TSHX, SED ####[address] [address] Staging: NOT REPORTED Normal [facility] Comment on above: Performed By: #### C DP, PT, PTT, CP, CRP, TSHX, SED ####[address] [address] CBC with Diffon 01-24-2018 Abs. Basophil <0.03 Normal 0.00-0.20 [facility] Comment on above: Performed By: #### C DP, PT, PTT, CP, CRP, TSHX, SED ####[place] [id number] Abs.Neutrophil (Seg) 6.94 k/uL Normal 1.50-8.10 [facility] Comment on above: Performed By: #### C DP, PT, PTT, CP, CRP, TSHX, SED ####[place] [id number] Basophils/100 WBC Auto (Bld) 0 % Normal 0-2 [facility] Comment on above: Performed By: #### C DP, PT, PTT, CP, CRP, TSHX, SED ####[address] [address] Eosinophils 0.06 10*3/uL Normal 0.00-0.44 [facility] Comment on above: Performed By: #### C DP, PT, PTT, CP, CRP, TSHX, SED ####[address] [address] Eosinophils/100 leukocytes 1 % Normal 1-4 [facility] Comment on above: Performed By: #### C DP, PT, PTT, CP, CRP, TSHX, SED ####[address] [address] Erythrocyte distribution width Auto Ratio (RBC) 12.7 % Normal 11.8-14.4 [facility] Comment on above: Performed By: #### C DP, PT, PTT, CP, CRP, TSHX, SED ####[place] [id number] Erythrocytes (RBC) 4.16 10*6/uL Low 4.21-5.77 [facility] Comment on above: Performed By: #### C DP, PT, PTT, CP, CRP, TSHX, SED ####[address] [address] Erythrocytes (RBC) 0.0 per 100 WBC Normal 0.0 [facility] Comment on above: Performed By: #### C DP, PT, PTT, CP, CRP, TSHX, SED ####[address] [address] Granulocytes/100 WBC (Bld) 0.08 k/uL Normal 0.00-0.30 [facility] Comment on above: Result Comment: [address] [address] Performed By: #### C DP, PT, PTT, CP, CRP, TSHX, SED ####[address] [address] Hematocrit (HCT) 38.9 % Low 40.7-50.3 [facility] Comment on above: Performed By: #### C DP, PT, PTT, CP, CRP, TSHX, SED ####[address] [address] Hemoglobin mass conc (Bld) 12.4 g/dL Low 13.0-17.0 [facility] Comment on above: Performed By: #### C DP, PT, PTT, CP, CRP, TSHX, SED ####[address] [address] Immature granulocytes #/vol (Bld) 1 % High 0 [facility] Comment on above: Performed By: #### C DP, PT, PTT, CP, CRP, TSHX, SED ####[address] [address] Lymphocytes 2.32 10*3/uL Normal 1.10-3.70 [facility] Comment on above: Performed By: #### C DP, PT, PTT, CP, CRP, TSHX, SED ####[address] [address] Lymphocytes/100 leukocytes 22 % Low 24-43 [facility] Comment on above: Performed By: #### C DP, PT, PTT, CP, CRP, TSHX, SED ####[address] [address] MCH 29.8 pg Normal 25.2-33.5 [facility] Comment on above: Performed By: #### C DP, PT, PTT, CP, CRP, TSHX, SED ####[place] [id number] MCHC mass conc (RBC) 31.9 g/dL Normal 28.4-34.8 [facility] Comment on above: Performed By: #### C DP, PT, PTT, CP, CRP, TSHX, SED ####[address] [address] MCV 93.5 fL Normal 82.6-102.9 [facility] Comment on above: Performed By: #### C DP, PT, PTT, CP, CRP, TSHX, SED ####[address] [address] Monocytes 1.12 10*3/uL Normal 0.10-1.20 [facility] Comment on above: Performed By: #### C DP, PT, PTT, CP, CRP, TSHX, SED ####[address] [address] Monocytes/100 leukocytes 11 % Normal 3-12 [facility] Comment on above: Performed By: #### C DP, PT, PTT, CP, CRP, TSHX, SED ####[address] [address] Neutrophil (Seg) 66 % High 36-65 [facility] Comment on above: Performed By: #### C DP, PT, PTT, CP, CRP, TSHX, SED ####[address] [address] Platelet mean volume (PMV) 11.1 fL Normal 8.1-13.5 [facility] Comment on above: Performed By: #### C DP, PT, PTT, CP, CRP, TSHX, SED ####[address] [address] Platelets 211 10*3/uL Normal 138-453 [facility] Comment on above: Performed By: #### C DP, PT, PTT, CP, CRP, TSHX, SED ####[address] [address] WBC (Leukocytes) 10.5 10*3/uL Normal 3.5-11.3 [facility] Comment on above: Performed By: #### C DP, PT, PTT, CP, CRP, TSHX, SED ####[address] [address] Auto Diff Performed NOT REPORTED Normal [facility] Comment on above: Performed By: #### C DP, PT, PTT, CP, CRP, TSHX, SED ####[address] [address] Erythrocyte morphology NOT REPORTED Normal [facility] Comment on above: Performed By: #### C DP, PT, PTT, CP, CRP, TSHX, SED ####[address] [address] Platelets NOT REPORTED Normal [facility] Comment on above: Performed By: #### C DP, PT, PTT, CP, CRP, TSHX, SED ####[address] [place] [address] WBC Morphology NOT REPORTED Normal [facility] Comment on above: Performed By: #### C DP, PT, PTT, CP, CRP, TSHX, SED ####[address] [address] Discharge Summaryon 01-25-20 18 HIM IP Note OR Completions Manager Normal [facility] Plan of Careon 01-24-2018 HIM IP Note OR Completions Manager Normal [facility] Progress Noteon 01-24-2018 HIM IP Note OR Completions Manager Normal [facility] HIM IP Note OR Completions Manager Normal [facility] HIM IP Note OR Completions Manager Normal [facility] Basic Metabolic Profon 01-23 (cont.) Normal [facility] Comment on above: Result Comment: Aver age GFR for 60-69 years old: 85 mL/min/1.73sq mChronic Kidney Disease: <60 mL/min/1.73sq mKidney failure: <15 mL/min/1.73sq meGFR calculated using average adult body mass. Additional eGFR calculator available at:http://[email or web address] [place] [address] Performed By: #### C DP, PT, PTT, CP, CRP, TSHX, SED ####[address] [address] Anion gap 14 mmol/L Normal 9-17 [facility] Comment on above: Performed By: #### C DP, PT, PTT, CP, CRP, TSHX, SED ####[address] [address] Calcium 8.6 mg/dL Normal 8.6-10.4 [facility] Comment on above: Performed By: #### C DP, PT, PTT, CP, CRP, TSHX, SED ####[address] [place] [address] Chloride 109 mmol/L High 98-107 [facility] Comment on above: Performed By: #### C DP, PT, PTT, CP, CRP, TSHX, SED ####[address] [address] CO2 20 mmol/L Normal 20-31 [facility] Comment on above: Performed By: #### C DP, PT, PTT, CP, CRP, TSHX, SED ####[address] [address] Creatinine 0.61 mg/dL Low 0.70-1.20 [facility] Comment on above: Performed By: #### C DP, PT, PTT, CP, CRP, TSHX, SED ####[address] [address] eGFR (non-black) mL/min/{1.73_m2} Normal >60 [facility] Comment on above: Performed By: #### C DP, PT, PTT, CP, CRP, TSHX, SED ####[address] [place] [address] Glucose mass conc 149 mg/dL High 70-99 [facility] Comment on above: Performed By: #### C DP, PT, PTT, CP, CRP, TSHX, SED ####[address] [place] [address] Potassium molar conc 4.1 mmol/L Normal 3.7-5.3 [facility] Comment on above: Performed By: #### C DP, PT, PTT, CP, CRP, TSHX, SED ####[address] [address] Sodium 143 mmol/L Normal 135-144 [facility] Comment on above: Performed By: #### C DP, PT, PTT, CP, CRP, TSHX, SED ####[address] [address] Urea nitrogen 16 mg/dL Normal 8- [facility] Comment on above: Performed By: #### C DP, PT, PTT, CP, CRP, TSHX, SED ####[address] [address] BUN/CRE Ratio NOT REPORTED Normal - [facility] Comment on above: Performed By: #### C DP, PT, PTT, CP, CRP, TSHX, SED ####[address] [address] Staging: NOT REPORTED Normal [facility] Comment on above: Performed By: #### C DP, PT, PTT, CP, CRP, TSHX, SED ####[address] [address] CBC with Diffon 01-23-2018 Abs. Basophil <0.03 Normal 0.00-0.20 [facility] Comment on above: Performed By: #### C DP, PT, PTT, CP, CRP, TSHX, SED ####[address] [address] Abs.Neutrophil (Seg) 12.77 k/uL High 1.50-8.10 [facility] Comment on above: Performed By: #### C DP, PT, PTT, CP, CRP, TSHX, SED ####[address] [address] Basophils/100 WBC Auto (Bld) 0 % Normal 0-2 [facility] Comment on above: Performed By: #### C DP, PT, PTT, CP, CRP, TSHX, SED ####[address] [address] Eosinophils 10*3/uL Normal 0.00-0.44 [facility] Comment on above: Performed By: #### C DP, PT, PTT, CP, CRP, TSHX, SED ####[address] [address] Eosinophils/100 leukocytes 0 % Low 1-4 [facility] Comment on above: Performed By: #### C DP, PT, PTT, CP, CRP, TSHX, SED ####[address] [address] Granulocytes/100 WBC (Bld) 0.07 k/uL Normal 0.00-0.30 [facility] Comment on above: Result Comment: [address] [address] Performed By: #### C DP, PT, PTT, CP, CRP, TSHX, SED ####[address] [address] Immature granulocytes #/vol (Bld) 1 % High 0 [facility] Comment on above: Performed By: #### C DP, PT, PTT, CP, CRP, TSHX, SED ####[address] [address] Lymphocytes 1.10 10*3/uL Normal 1.10-3.70 [facility] Comment on above: Performed By: #### C DP, PT, PTT, CP, CRP, TSHX, SED ####[address] [address] Lymphocytes/100 leukocytes 7 % Low 24-43 [facility] Comment on above: Performed By: #### C DP, PT, PTT, CP, CRP, TSHX, SED ####[address] [address] Monocytes 0.82 10*3/uL Normal 0.10-1.20 [facility] Comment on above: Performed By: #### C DP, PT, PTT, CP, CRP, TSHX, SED ####[address] [address] Monocytes/100 leukocytes 6 % Normal 3-12 [facility] Comment on above: Performed By: #### C DP, PT, PTT, CP, CRP, TSHX, SED ####[address] [address] Neutrophil (Seg) 86 % High 36-65 [facility] Comment on above: Performed By: #### C DP, PT, PTT, CP, CRP, TSHX, SED ####[address] [address] Erythrocyte distribution width Auto Ratio (RBC) 13.0 % Normal 11.8-14.4 [facility] Comment on above: Performed By: #### C DP, PT, PTT, CP, CRP, TSHX, SED ####[address] [address] Erythrocytes (RBC) 4.70 10*6/uL Normal 4.21-5.77 [facility] Comment on above: Performed By: #### C DP, PT, PTT, CP, CRP, TSHX, SED ####[address] [address] Erythrocytes (RBC) 0.0 per 100 WBC Normal 0.0 [facility] Comment on above: Performed By: #### C DP, PT, PTT, CP, CRP, TSHX, SED ####[address] [address] Hematocrit (HCT) 41.1 % Normal 40.7-50.3 [facility] Comment on above: Performed By: #### C DP, PT, PTT, CP, CRP, TSHX, SED ####[address] [address] Hemoglobin mass conc (Bld) 13.7 g/dL Normal 13.0-17.0 [facility] Comment on above: Performed By: #### C DP, PT, PTT, CP, CRP, TSHX, SED ####[address] [address] MCH 29.1 pg Normal 25.2-33.5 [facility] Comment on above: Performed By: #### C DP, PT, PTT, CP, CRP, TSHX, SED ####[address] [address] MCHC mass conc (RBC) 33.3 g/dL Normal 28.4-34.8 [facility] Comment on above: Performed By: #### C DP, PT, PTT, CP, CRP, TSHX, SED ####[address] [address] MCV 87.4 fL Normal 82.6-102.9 [facility] Comment on above: Performed By: #### C DP, PT, PTT, CP, CRP, TSHX, SED ####[address] [address] Platelet mean volume (PMV) 10.7 fL Normal 8.1-13.5 [facility] Comment on above: Performed By: #### C DP, PT, PTT, CP, CRP, TSHX, SED ####[address] [address] Platelets 229 10*3/uL Normal 138-453 [facility] Comment on above: Performed By: #### C DP, PT, PTT, CP, CRP, TSHX, SED ####[address] [address] WBC (Leukocytes) 14.8 10*3/uL High 3.5-11.3 [facility] Comment on above: Performed By: #### C DP, PT, PTT, CP, CRP, TSHX, SED ####[address] [address] Auto Diff Performed NOT REPORTED Normal [facility] Comment on above: Performed By: #### C DP, PT, PTT, CP, CRP, TSHX, SED ####[address] [address] Erythrocyte morphology NOT REPORTED Normal [facility] Comment on above: Performed By: #### C DP, PT, PTT, CP, CRP, TSHX, SED ####[address] [address] Platelets NOT REPORTED Normal [facility] Comment on above: Performed By: #### C DP, PT, PTT, CP, CRP, TSHX, SED ####[address] [address] WBC Morphology NOT REPORTED Normal [facility] Comment on above: Performed By: #### C DP, PT, PTT, CP, CRP, TSHX, SED ####[address] [address] [address] HEAD WO CONTRASTon 2017 CT HEAD WO CONTRAST EXAMINATION:CT OF THE HEAD WITHOUT CONTRAST 01/23/2018 5:21 amTECHNIQUE:CT of the head was performed without the administration of intravenouscontrast. Dose modulation, iterative reconstruction, and/or weight basedadjustment of the mA/kV was utilized to reduce the radiation dose to as lowas reasonably achievable.COMPARISON:12/26.HISTORY:ORDERING SYSTEM PROVIDED HISTORY: post-op f/u s/p evacuation SDHTECHNOLOGIST PROVIDED HISTORY:Has a code stroke or stroke alert been called?->NoInitial evaluation.FINDINGS:BRAIN/ VENTRICLES: Postsurgical changes from a left parietal craniotomy withan extraventricular drain within the previously seen left subduralcollection, which appears improved. A small amount of pneumocephalus is seenoverlying the left frontal convexity. There is persistent, but improved masseffect on the left cerebral hemisphere with improvement of the left rightmidline shift now measuring 6 mm (previously 13 mm). No evidence ofhydrocephalus.ORBITS: The visualized portion of the orbits demonstrate no acute abnormality.SINUSES: The visualized paranasal sinuses and mastoid air cells demonstrateno acute abnormality.SOFT TISSUES/SKULL: Bilateral parietal scalp swelling noted.IMPRESSION: 1. Postsurgical change from left parietal craniotomy with an extraventriculardrain within the previously seen left subdural collection, which appearsimproved.2. Improved, but persistent mass effect on the left cerebral hemisphere.3. Improved left right midline shift now measuring 6 mm (previously 13 mm).Interpreted by:JIHAN Penalozaigned by:Quintin Byrnes MD01/23/18inal result Normal [facility] Cult,Urineon 01-23-2018 Cult,Urine Specimen Description .CATHETERIZED URINE WOODS FIRST INSERTION Special Requests NOT REPORTED Culture NO GROWTH Report Status FINAL 01/23/2018 Normal [facility] Comment on above: Performed By: #### C DP, PT, PTT, CP, CRP, TSHX, SED ####[facility] [address] [place] [address] History and Physicalon 01-23 [facility] IP Note OR Completions Manager Normal [facility] MRSA, DNA, Nasalon 8 MRSA, DNA, Nasal NEGATIVE: MRSA DNA n ot detected by nucleic acid amplification. Normal NMRSAA [facility] Comment on above: Result Comment: Resu lts should be used as an adjunct to nosocomial control efforts to identify patients needing enhanced precautions.The test is not intended to identify patients with staphylococcal infections. Results should not be used to guide or monitor treatment for MRSA infections.[id number] [place] [address] Performed By: #### C DP, PT, PTT, CP, CRP, TSHX, SED ####[facility] [place] [address] Plan of Careon 01-23-2018 HIM IP Note OR Completions Manager Normal [facility] HIM IP Note OR Completions Manager Normal [facility] Progress Noteon 01-23-2018 HIM IP Note OR Completions Manager Normal [facility] HIM IP Note OR Completions Manager Normal [facility] HIM IP Note OR Completions Manager Normal [facility] HIM IP Note OR Completions Manager Normal [facility] HIM IP Note OR Completions Manager Normal [facility] HIM IP Note OR Completions Manager Normal [facility] CTA HEAD W CONTRASTon 2017 CTA HEAD W CONTRAST ADDENDUM:3D reconstructed images were performed on a separate workstation and providedfor review.Electronically Signed by: AMRITA NIEVES on SunJanuary 22, 2018 3:24:14 AM EDTEXAMINATION:CTA OF THE HEAD WITH CONTRAST 01/21/2018 12:38 am:TECHNIQUE:CTA of the head/brain was performed with the administration of intravenouscontrast. Multiplanar reformatted images are provided for review. MIP imagesare provided for review. Dose modulation, iterative reconstruction, and/orweight based adjustment of the mA/kV was utilized to reduce the radiationdose to as low as reasonably achievable. 3D reconstructed images wereperformed on a separate workstation and provided for review.COMPARISON:None.HIS TORY:ORDERING SYSTEM PROVIDED HISTORY: hygroma, r/o avmFINDINGS:ANTERIOR CIRCULATION: There are atherosclerotic changes of the left cavernoussegment internal carotid artery resulting at least moderate narrowing. Theremainder of internal carotid arteries are normal in course and caliberwithout focal stenosis. The anterior cerebral and middle cerebral arteriesdemonstrate no focal stenosis.POSTERIOR CIRCULATION: The posterior cerebral arteries demonstrate no focalstenosis. The vertebral and basilar arteries appear unremarkable.BRAIN: There is a mixed density extra-axial collection over the left cerebralhemisphere mass effect results in effacement of the left lateral ventricleand [id number]-[id number]-[id number] shift of 9 mm.No evidence of aneurysm or arteriovenous malformation.IMPRESSION: Left cavernous carotid moderate stenosis.No evidence of aneurysm or arteriovenous malformationMixed density left cerebral convexity subdural collection with 9 mm midlineshift.Interpreted by:JIHAN Fowlerigned by:Amrita Nieves MD01/22/18Edited Result - FINAL Normal [facility] MRSA, DNA, Nasalon 8 Specimen Description .NASAL SWAB Normal [facility] Comment on above: Performed By: #### C DP, PT, PTT, CP, CRP, TSHX, SED ####[address] [address] Op Noteon 01-22-2018 HIM IP Note OR Completions Manager Normal [facility] Plan of Careon 01-22-2018 HIM IP Note OR Completions Manager Normal [facility] HIM IP Note OR Completions Manager Normal [facility] Progress Noteon 01-22-2018 HIM IP Note OR Completions Manager Normal [facility] HIM IP Note OR Completions Manager Normal [facility] HIM IP Note OR Completions Manager Normal [facility] HIM IP Note OR Completions Manager Normal [facility] HIM IP Note OR Completions Manager Normal [facility] HIM IP Note OR Completions Manager Normal [facility] HIM IP Note OR Completions Manager Normal [facility] APTTon 01-21-2018 aPTT 23.4 s Normal 20.5-30.5 [facility] Comment on above: Result Comment: [facility] [address] [place] [address] Performed By: #### C DP, PT, PTT, CP, CRP, TSHX, SED ####[facility] [address] [place] [address] C-Reactive Proteinon 018 C reactive protein (CRP) 3.0 mg/L Normal 0.0-5.0 [facility] Comment on above: Result Comment: [facility] [place] [address] Performed By: #### C DP, PT, PTT, CP, CRP, TSHX, SED ####[facility] [address] [place] [address] CBC with Diffon 01-21-2018 Abs. Basophil 0.09 k/uL Normal 0.00-0.20 [facility] Comment on above: Performed By: #### C DP, PT, PTT, CP, CRP, TSHX, SED ####[place] [id number] Abs.Neutrophil (Seg) 3.58 k/uL Normal 1.50-8.10 [facility] Comment on above: Performed By: #### C DP, PT, PTT, CP, CRP, TSHX, SED ####[place] [id number] Basophils/100 WBC Auto (Bld) 1 % Normal 0-2 [facility] Comment on above: Performed By: #### C DP, PT, PTT, CP, CRP, TSHX, SED ####[place] [id number] Eosinophils 0.84 10*3/uL High 0.00-0.44 [facility] Comment on above: Performed By: #### C DP, PT, PTT, CP, CRP, TSHX, SED ####[place] [id number] Eosinophils/100 leukocytes 10 % High 1-4 [facility] Comment on above: Performed By: #### C DP, PT, PTT, CP, CRP, TSHX, SED ####[address] [address] Erythrocyte distribution width Auto Ratio (RBC) 12.3 % Normal 11.8-14.4 [facility] Comment on above: Performed By: #### C DP, PT, PTT, CP, CRP, TSHX, SED ####[address] [address] Erythrocytes (RBC) 0.0 per 100 WBC Normal 0.0 [facility] Comment on above: Performed By: #### C DP, PT, PTT, CP, CRP, TSHX, SED ####[address] [address] Erythrocytes (RBC) 4.72 10*6/uL Normal 4.21-5.77 [facility] Comment on above: Performed By: #### C DP, PT, PTT, CP, CRP, TSHX, SED ####[address] [address] Granulocytes/100 WBC (Bld) 0.03 k/uL Normal 0.00-0.30 [facility] Comment on above: Result Comment: [address] [address] Performed By: #### C DP, PT, PTT, CP, CRP, TSHX, SED ####[address] [address] Hematocrit (HCT) 42.6 % Normal 40.7-50.3 [facility] Comment on above: Performed By: #### C DP, PT, PTT, CP, CRP, TSHX, SED ####[address] [address] Hemoglobin mass conc (Bld) 13.7 g/dL Normal 13.0-17.0 [facility] Comment on above: Performed By: #### C DP, PT, PTT, CP, CRP, TSHX, SED ####[address] [address] Immature granulocytes #/vol (Bld) 0 % Normal 0 [facility] Comment on above: Performed By: #### C DP, PT, PTT, CP, CRP, TSHX, SED ####[address] [address] Lymphocytes 2.95 10*3/uL Normal 1.10-3.70 [facility] Comment on above: Performed By: #### C DP, PT, PTT, CP, CRP, TSHX, SED ####[address] [address] Lymphocytes/100 leukocytes 36 % Normal 24-43 [facility] Comment on above: Performed By: #### C DP, PT, PTT, CP, CRP, TSHX, SED ####[address] [address] MCH 29.0 pg Normal 25.2-33.5 [facility] Comment on above: Performed By: #### C DP, PT, PTT, CP, CRP, TSHX, SED ####[address] [address] MCHC mass conc (RBC) 32.2 g/dL Normal 28.4-34.8 [facility] Comment on above: Performed By: #### C DP, PT, PTT, CP, CRP, TSHX, SED ####[address] [address] MCV 90.3 fL Normal 82.6-102.9 [facility] Comment on above: Performed By: #### C DP, PT, PTT, CP, CRP, TSHX, SED ####[address] [address] Monocytes 0.71 10*3/uL Normal 0.10-1.20 [facility] Comment on above: Performed By: #### C DP, PT, PTT, CP, CRP, TSHX, SED ####[address] [address] Monocytes/100 leukocytes 9 % Normal 3-12 [facility] Comment on above: Performed By: #### C DP, PT, PTT, CP, CRP, TSHX, SED ####[address] [address] Neutrophil (Seg) 44 % Normal 36-65 [facility] Comment on above: Performed By: #### C DP, PT, PTT, CP, CRP, TSHX, SED ####[address] [address] Platelet mean volume (PMV) 10.3 fL Normal 8.1-13.5 [facility] Comment on above: Performed By: #### C DP, PT, PTT, CP, CRP, TSHX, SED ####[address] [address] Platelets 243 10*3/uL Normal 138-453 [facility] Comment on above: Performed By: #### C DP, PT, PTT, CP, CRP, TSHX, SED ####[address] [address] WBC (Leukocytes) 8.2 10*3/uL Normal 3.5-11.3 [facility] Comment on above: Performed By: #### C DP, PT, PTT, CP, CRP, TSHX, SED ####[address] [address] Auto Diff Performed NOT REPORTED Normal [facility] Comment on above: Performed By: #### C DP, PT, PTT, CP, CRP, TSHX, SED ####[address] [address] Erythrocyte morphology NOT REPORTED Normal [facility] Comment on above: Performed By: #### C DP, PT, PTT, CP, CRP, TSHX, SED ####[address] [address] Platelets NOT REPORTED Normal [facility] Comment on above: Performed By: #### C DP, PT, PTT, CP, CRP, TSHX, SED ####[address] [address] WBC Morphology NOT REPORTED Normal [facility] Comment on above: Performed By: #### C DP, PT, PTT, CP, CRP, TSHX, SED ####[address] [address] Comp Metabolic Profon 2017 (cont.) Normal [facility] Comment on above: Result Comment: Aver age GFR for 60-69 years old: 85 mL/min/1.73sq mChronic Kidney Disease: <60 mL/min/1.73sq mKidney failure: <15 mL/min/1.73sq meGFR calculated using average adult body mass. Additional eGFR calculator available at:[email or web address] [email or web address]_crcl_[email or web address] [address] Performed By: #### C DP, PT, PTT, CP, CRP, TSHX, SED ####[address] [address] Alanine aminotransferase (ALT) 26 U/L Normal 5-41 [facility] Comment on above: Performed By: #### C DP, PT, PTT, CP, CRP, TSHX, SED ####[address] [address] Albumin 4.2 g/dL Normal 3.5-5.2 [facility] Comment on above: Performed By: #### C DP, PT, PTT, CP, CRP, TSHX, SED ####[address] [address] Albumin/Globulin Ratio 1.6 {ratio} Normal 1.0-2.5 [facility] Comment on above: Performed By: #### C DP, PT, PTT, CP, CRP, TSHX, SED ####[address] [address] Alkaline Phos 57 U/L Normal 40-129 [facility] Comment on above: Performed By: #### C DP, PT, PTT, CP, CRP, TSHX, SED ####[address] [place] [address] Anion gap 10 mmol/L Normal 9-17 [facility] Comment on above: Performed By: #### C DP, PT, PTT, CP, CRP, TSHX, SED ####[address] [address] Aspartate aminotransferase (AST) 16 U/L Normal <40 [facility] Comment on above: Performed By: #### C DP, PT, PTT, CP, CRP, TSHX, SED ####[address] [address] Bilirubin Ql (U) 0.62 mg/dL Normal 0.3-1.2 [facility] Comment on above: Performed By: #### C DP, PT, PTT, CP, CRP, TSHX, SED ####[address] [address] Calcium 8.8 mg/dL Normal 8.6-10.4 [facility] Comment on above: Performed By: #### C DP, PT, PTT, CP, CRP, TSHX, SED ####[address] [address] Chloride 107 mmol/L Normal 98-107 [facility] Comment on above: Performed By: #### C DP, PT, PTT, CP, CRP, TSHX, SED ####[address] [address] CO2 21 mmol/L Normal 20-31 [facility] Comment on above: Performed By: #### C DP, PT, PTT, CP, CRP, TSHX, SED ####[address] [address] Creatinine 0.57 mg/dL Low 0.70-1.20 [facility] Comment on above: Performed By: #### C DP, PT, PTT, CP, CRP, TSHX, SED ####[address] [place] [address] eGFR (non-black) mL/min/{1.73_m2} Normal >60 [facility] Comment on above: Performed By: #### C DP, PT, PTT, CP, CRP, TSHX, SED ####[address] [address] Glucose mass conc 99 mg/dL Normal 70-99 [facility] Comment on above: Performed By: #### C DP, PT, PTT, CP, CRP, TSHX, SED ####[address] [address] Potassium molar conc 3.7 mmol/L Normal 3.7-5.3 [facility] Comment on above: Performed By: #### C DP, PT, PTT, CP, CRP, TSHX, SED ####[address] [address] Protein 6.9 g/dL Normal 6.4-8.3 [facility] Comment on above: Performed By: #### C DP, PT, PTT, CP, CRP, TSHX, SED ####[address] [address] Sodium 138 mmol/L Normal 135-144 [facility] Comment on above: Performed By: #### C DP, PT, PTT, CP, CRP, TSHX, SED ####[address] [address] Urea nitrogen 14 mg/dL Normal 8-23 [facility] Comment on above: Performed By: #### C DP, PT, PTT, CP, CRP, TSHX, SED ####[address] [address] BUN/CRE Ratio NOT REPORTED Normal 9-20 [facility] Comment on above: Performed By: #### C DP, PT, PTT, CP, CRP, TSHX, SED ####[address] [address] Staging: NOT REPORTED Normal [facility] Comment on above: Performed By: #### C DP, PT, PTT, CP, CRP, TSHX, SED ####[address] [address] Consulton 01-21-2018 HIM IP Note OR Completions Manager Normal [facility] HIM IP Note OR Completions Manager Normal [facility] ED Noteon 01-21-2018 HIM IP Note OR Completions Manager Normal [facility] Fibrinogenon 01-21-2018 Fibrinogen 421 mg/dL High 140-420 [facility] Comment on above: Result Comment: [address] [address] Performed By: #### C DP, PT, PTT, CP, CRP, TSHX, SED ####[address] [address] History and Physicalon 01-21 HIM IP Note OR Completions Manager Normal [facility] PSA, [employer] 01-21-2018 Prostatic Spec. Ag <0.01 Normal <4.1 [facility] Comment on above: Result Comment: The [employer] ECLIA assay is used. Results obtained with different assay methods cannot be used interchangeably.[facility] [employer] [address] [place] [address] Performed By: #### C DP, PT, PTT, CP, CRP, TSHX, SED ####[address] [address] PTon 01-21-2018 INR Coag RelTime (PPP) 1.0 {INR} Normal [facility] Comment on above: Result Comment: Ther apeutic Range: Moderate Anticoagulant Intensity: INR = 2.0-3.0 High Anticoagulant Intensity: INR = 2.5-3.[address] [address] Performed By: #### C DP, PT, PTT, CP, CRP, TSHX, SED ####[address] [address] Prothrombin time (PT) Coag time (PPP) 10.4 s Normal 9.0-12.0 [facility] Comment on above: Performed By: #### C DP, PT, PTT, CP, CRP, TSHX, SED ####[address] [address] Plan of Careon 01-21-2018 HIM IP Note OR Completions Manager Normal [facility] Platelet Functionon 01-22-20 18 Collagen/ADP 77 sec Normal 67-112 [facility] Comment on above: Performed By: #### P FA ####[address] [address] Collagen/EPI 117 sec Normal 85-172 [facility] Comment on above: Performed By: #### P FA ####[address] [address] Interpretation Normal platelet func tion. If patient clinical history/Physical examination is Normal [facility] Comment on above: Result Comment: posi tive for a bleeding diathesis, recommend repeat testing and/or additional primary hemostasis and/or coagulation studies.PFA results on patients treated with Plavix (clopidogrel) have not been established.[facility] [employer] [address] [place] [address] Performed By: #### P FA ####[address] [address] Progress Noteon 01-21-2018 HIM IP Note OR Completions Manager Normal [facility] Sedimentation Rateon 018 Sedimentation Rate 7 mm Normal 0-10 [facility] Comment on above: Result Comment: [employer] [address] [place] [address] Performed By: #### C DP, PT, PTT, CP, CRP, TSHX, SED ####[address] [address] TSH w/reflex to FT4on 2017 Thyroid stimulating hormone (TSH) 4.56 m[IU]/L Normal 0.30-5.00 [facility] Comment on above: Result Comment: [facility] [address] [place] [address] Performed By: #### C DP, PT, PTT, CP, CRP, TSHX, SED ####[address] [address] Thrombin Clot Timeon 018 Thrombin Clot Time 20.7 sec High 16.4-20.0 [facility] Comment on above: Result Comment: [employer] [address] [place] [address] Performed By: #### C DP, PT, PTT, CP, CRP, TSHX, SED ####[address] [address] ED Provider Noteon 8 HIM IP Note OR Completions Manager Normal [facility] Vital Signs Date Time Vital Sign Value Performing Clinician Facility 11-15-2023 09:05-0400 Body height 175.26 cm [facility] 11-15-2023 09:05-0400 Body mass index (BMI) [Ratio] 25.4 kg/m2 [facility] 11-15-2023 09:05-0400 Body weight 78.13 kg [facility] 11-15-2023 09:05-0400 Diastolic blood pressure 81 mm[Hg] [facility] 11-15-2023 09:05-0400 Heart rate 56 /min [facility] 11-15-2023 09:05-0400 Respiratory rate 12 /min [facility] 11-15-2023 09:05-0400 Systolic blood pressure 145 mm[Hg] [facility] 05-17-2023 10:00-0400 Body height 175.26 cm Juvenal Ball Other [employer] Other 05-17-2023 10:00-0400 Body mass index (BMI) [Ratio] 26.4 kg/m2 Juvenal Ball Other [employer] Other 05-17-2023 10:00-0400 Body weight 81.1 kg Juvenal Ball Other [employer] Other 05-17-2023 10:00-0400 Diastolic blood pressure 81 mm[Hg] Juvenal Ball Other [employer] Other 05-17-2023 10:00-0400 Respiratory rate 12 /min Juvenal Ball Other [employer] Other 05-17-2023 10:00-0400 Systolic blood pressure 136 mm[Hg] Juvenal Ball Other [employer] Other 11-06-2022 10:00-0400 Body height 175.26 cm Juvenal Ball Other [employer] Other 11-06-2022 10:00-0400 Body mass index (BMI) [Ratio] 26.37 kg/m2 Juvenal Ball Other [employer] Other 11-06-2022 10:00-0400 Body weight 81.01 kg Juvenal Ball Other [employer] Other 11-06-2022 10:00-0400 Diastolic blood pressure 81 mm[Hg] Juvenal Ball Other [facility] [employer] Other 11-06-2022 10:00-0400 Respiratory rate 12 /min Juvenal Ball Other [employer] Other 11-06-2022 10:00-0400 Systolic blood pressure 122 mm[Hg] Juvenal Davila Other [employer] Other 10-04-2022 13:40-0500 Blood Pressure Location ROHINI FRY [facility] 10-04-2022 13:40-0500 Diastolic blood pressure 82 mm[Hg] ROHINI LISANDRA [facility] 10-04-2022 13:40-0500 Heart rate 72 /min ROHINI LISANDRA [facility] 10-04-2022 13:40-0500 Systolic blood pressure 138 mm[Hg] ROHINILOREE FRY [facility] Encounters Encounter Date Encounter Type Care Provider Facility Start: 11-15-2023 End: 11-15-2023 ambulatory [facility] Work Phone: Start: 11-15-2023 End: 11-15-2023 [facility]: Start: 10-30-2023 End: 10-31-2023 ambulatory PA-C ROHINI FRY Facility:[facility] Start: 10-24-2023 Non-patient / Non-visit [facility] Work Phone: Start: 05-17-2023 End: 05-17-2023 ambulatory Juvenal Davila Other [employer] Other Start: 05-17-2023 Office outpatient vi sit 25 minutes Juvenal Davila [facility] Start: 05-14-2023 End: 05-14-2023 ambulatory Juvenal Davila Other [employer] Other Start: 05-14-2023 Telephone encounter Juvenal Reyes [facility] Start: 04-24-2023 End: 04-24-2023 ambulatory Juvenal Davila Other [employer] Other Start: 04-24-2023 Telephone encounter Juvenal Davila [facility] Start: 02-19-2023 End: 02-19-2023 ambulatory Juvenal Davila Other [employer] Other Start: 02-19-2023 Telephone encounter Juvenal Reyes [facility] Start: 11-06-2022 Patient encounter procedure Juvenal Davila [facility] Start: 11-06-2022 End: 11-07-[address] JUVENAL DAVILA Facility:[facility] Start: 10-04-2022 End: 10-04-2022 Patient encounter procedure ROHINI FRY [facility] Start: 09-27-2022 End: 09-28-[address] DOCTOR PETIT Facility:[facility] Start: 11-04-2021 Adult health examination Juvenal Davila Other [employer] Other Start: 02-06-2018 End: 02-09-2018 Ambulatory JUVENAL DAVILA [facility] Start: 01-20-2018 End: 01-24-2018 Evaluation and management of inpatient JUVENAL DAVILA [facility] Procedures Date Procedure Procedure Detail Performing Clinician Start: 09-27-[address] ROSA DAVILA Comment on above: Performed By: #### P SAD #### [facility] [address] [place] [address] Dr. Serafin Bloom Start: 07-27-2021 Colonoscopy ROHINI WHITEHEAD Start: 02-14-2021 Replacement of aortic valve ROHINI FRY Start: 05-27-2020 Cardiac catheterization ROHINI FRY Start: 02-06-2018 Ct head/brain w/o co ntrast material JUVENAL BALL Start: 01-25-2018 Craniotomy ROHINI WHITEHEAD Start: 01-24-2018 DISCHARGE PATIENT SOCRATES MIN BALL Start: 01-24-2018 INITIATE OXYGEN THER APY PROTOCOL JUVENAL BALL Start: 01-24-2018 Basic metabolic pane l calcium total JUVENAL BALL Start: 01-24-2018 Blood count complete auto&auto difrntl wbc JUVENAL BALL Start: 01-24-2018 INTAKE AND OUTPUT SOCRATES MIN [facility] Start: 01-24-2018 VITAL SIGNS JUVENAL B ALL Start: 01-23-2018 TRANSFER PATIENT BENJAM IN BALL Start: 01-23-2018 ELEVATE HOB JUVENAL B ALL Start: 01-23-2018 DIET GENERAL JUVENAL B ALL Start: 01-23-2018 DRAIN CARE JUVENAL B ALL Start: 01-23-2018 OT EVAL AND TREAT SOCRATES MIN BALL Start: 01-23-2018 PT EVAL AND TREAT SOCRATES MIN [facility] Start: 01-23-2018 INITIATE OXYGEN THER APY PROTOCOL JUVENAL BALL Start: 01-23-2018 Basic metabolic pane l calcium total JUVENAL BALL Start: 01-23-2018 Blood count complete auto&auto difrntl wbc JUVENAL BALL Start: 01-23-2018 Ct head/brain w/o co ntrast material JUVENAL BALL Start: 01-23-2018 ELEVATE HEELS OFF OF BED JUVENAL BALL Start: 01-23-2018 MISCELLANEOUS NURSIN G CARE ORDER (SPECIFY) JUVENAL BALL Start: 01-23-2018 NURSING COMMUNICATION B ENJAMIN BALL Start: 01-23-2018 TURN PATIENT JUVENAL B ALL Start: 01-23-2018 CATHETER REMOVAL BENJAM IN BALL Start: 01-23-2018 INTAKE AND OUTPUT SOCRATES MIN [facility] Start: 01-23-2018 VITAL SIGNS JUVENAL B ALL Start: 01-22-2018 MRSA DNA PROBE, NASAL B ENJAMIN BALL Start: 01-22-2018 ADVANCE DIET TOLE RATED (NURSING COMMUNICATION) JUVENAL BALL Start: 01-22-2018 INTAKE AND OUTPUT SOCRATES MIN BALL Start: 01-22-2018 MISCELLANEOUS NURSIN G CARE ORDER (SPECIFY) JUVENAL BALL Start: 01-22-2018 NEURO CHECKS JUVENAL B ALL Start: 01-22-2018 PLACE INTERMITTENT P NEUMATIC COMPRESSION DEVICE JUVENAL BALL Start: 01-22-2018 TELEMETRY MONITORING BE NJAMIN BALL Start: 01-22-2018 FULL CODE JUVENAL Ryder ALL Start: 01-22-2018 INITIATE OXYGEN THER APY PROTOCOL JUVENAL DAVILA Start: 01-22-2018 VITAL SIGNS JUVENAL Ryder ALL Start: 01-22-2018 WOUND CARE JUVENAL Ryder ALL Start: 01-22-2018 TRANSFER PATIENT ROSA DAVILA Start: 01-22-2018 Culture bacterial quanttative colony count urine JUVENAL DAVILA Start: 01-22-2018 EKG 12-LEAD JUVENAL Ryder ALL Start: 01-21-2018 FIBRINOGEN JUVENAL Ryder ALL Start: 01-21-2018 PSA, DIAGNOSTIC SARANYA N BALL Start: 01-21-2018 THROMBIN CLOT TIME TOMMY DAVILA Start: 01-21-2018 OBTAIN MEDICAL RECORDS JUVENAL DAVILA Start: 01-21-2018 IP CONSULT TO HEM/ONC Aleksey ARANA JENA Start: 01-21-2018 NOTIFY PHYSICIAN (SPECIFY) JUVENAL DAVILA Start: 01-21-2018 PLACE INTERMITTENT P NEUMATIC COMPRESSION DEVICE JUVENAL DAVILA Start: 01-21-2018 REASON FOR NO CHEMIC AL VTE PROPHYLAXIS JUVENAL DAVILA Start: 01-21-2018 TELEMETRY MONITORING BE BOB DAVILA Start: 01-21-2018 Ct angiography head w/contrast/noncontrast JUVENAL DAVILA Start: 01-21-2018 PLATELET FUNCTION TEST JUVENAL DAVILA Start: 01-21-2018 PREVIOUS SPECIMEN SOCRATES MIN BALL Start: 01-21-2018 PATIENT STATUS (FROM ED OR OR/PROCEDURAL) JUVENAL DAVILA Start: 01-21-2018 Blood count complete auto&auto difrntl wbc JUVENAL DAVILA Start: 01-21-2018 C-reactive protein TOMMY DAVILA Start: 01-21-2018 Comprehensive metabo lic panel JUVENAL DAVILA Start: 01-21-2018 Prothrombin time ROSA IN BALL Start: 01-21-2018 SEDIMENTATION RATE TOMMY OWENS BALL Start: 01-21-2018 Thromboplastin time partial plasma/whole blood JUVENAL DAVILA Start: 01-21-2018 TSH WITH REFLEX SARANYA DAVILA Start: 01-21-2018 IP CONSULT TO SPLICING MACHINE OPERATOR AL MEDICINE JUVENAL DAVILA Start: 10-18-2016 Radical prostatectom y with pelvic lymphadenectomy ROHINI FRY Start: 10-11-2016 Pre-surgery evaluation Juvenal Davila Other Start: 06-28-2016 Transrectal biopsy o f prostate using ultrasound guidance ROHINI FRY Start: 04-28-2016 Screening for malign ant neoplasm of colon Juvenal Davila Other Start: 04-28-2016 Screening for malign ant neoplasm of prostate Juvenal Davila Other Bladder excision ROHINI LISA Comment on above: neck Brain structure (bod y structure) ROHINI FRY Colonoscopy ROHINI FRY Depression screening Saranya Davila Other Open reduction of fr acture with internal fixation ROHINI FRY Comment on above: left radius/humerus Plan of Treatment Date Care Activity Detail Author Comprehensive metabo lic 2000 panel - Serum or Plasma [facility] Immunizations Immunization Date Immunization Notes Care Provider Fa cility 05-17-2023 influenza virus vaccine, unspecified formulation [facility] 05-17-2023 influenza, high dose seasonal, preservative-free Juvenal Davila Other [facility] [employer] Other 05-22-2022 influenza virus vaccine, split virus (incl. purified surface antigen) Juvenal Davila Other [facility] [employer] Other 05-22-2022 influenza virus vaccine, unspecified formulation ROHINI FRY [facility] 05-22-2022 influenza, high dose seasonal, preservative-free Juvenal Davila Other [facility] [employer] Other 02-22-2022 SARS-CoV-2 (COVID-19 ) mRNA-1273 vaccine ROHINI FRY [facility] Comment on above: Result Comment: 2022: [id number] 07-11-2021 SARS-CoV-2 (COVID-19 ) mRNA-1273 vaccine ROHINI FRY [facility] 06-27-2021 influenza virus vaccine, unspecified formulation ROHINI LISANDRA [facility] 06-23-2021 influenza virus vaccine, split virus (incl. purified surface antigen) Juvenal Davila Other [employer] Other 06-23-2021 influenza virus vaccine, unspecified formulation [facility] 05-27-2021 SARS-CoV-2 (COVID-19 ) Ad26 vaccine, recombinant ROHINI LISANDRA [facility] 01-21-2021 pneumococcal polysaccharide vaccine, 23 valent ROHINI LISANDRA [facility] 11-25-2020 SARS-CoV-2 (COVID-19 ) Ad26 vaccine, recombinant ROHINI LISANDRA [facility] 11-09-2020 SARS-CoV-2 (COVID-19 ) mRNA-1273 vaccine ROHINI LISANDRA [facility] 10-25-2020 SARS-CoV-2 (COVID-19 ) Ad26 vaccine, recombinant ROHINI LISANDRA [facility] 10-14-2020 SARS-CoV-2 (COVID-19 ) mRNA-1273 vaccine ROHINI LISANDRA [facility] 07-12-2020 influenza virus vaccine, unspecified formulation ROHINI LISANDRA [facility] 06-01-2020 influenza virus vaccine, split virus (incl. purified surface antigen) Juvenal Davila Other [employer] Other 06-01-2020 influenza virus vaccine, unspecified formulation [facility] 02-20-2020 pneumococcal conjuga te vaccine, 13 valent Juvenal Davila Other [facility] 07-08-2019 influenza virus vaccine, split virus (incl. purified surface antigen) Juvenal Davila Other [employer] Other 07-08-2019 influenza virus vaccine, unspecified formulation [facility] 06-05-2018 influenza virus vaccine, split virus (incl. purified surface antigen) Juvenal Davila Other [employer] Other 06-05-2018 influenza virus vaccine, unspecified formulation [facility] 05-09-2016 tetanus and diphther ia toxoids, adsorbed, preservative free, for adult use (5 Lf of tetanus toxoid and 2 Lf of diphtheria toxoid) Juvenal Davila Other [facility] 05-06-2015 influenza virus vaccine, split virus (incl. purified surface antigen) Juvenal Davila Other [employer] Other 05-06-2015 influenza virus vaccine, unspecified formulation [facility] Payers Date Payer Category Payer Medicare [id number] 1961 Unknown [id number] 1955 Unknown [id number] 1955 Unknown [id number] 1955 Unknown [id number] Medicare [id number] 2. [id number] Social History Date Type Detail Facility Start: 09-06-2021 End: 11-15-2023 Tobacco smoking status Never smoked tobacco (finding) [facility] Tobacco smoking status Never [facility] Sex Assigned At Male [facility] Start: 1955 Sex Assigned At Male [facility] Functional Status Date Assessment Result Facility 10-04-2022 Functional Status N/A [facility] Evaluation note 05-17-2023 Note Date & Type Note Facility 05-17-2023 Evaluation note Encounter Date Diagnosis Assessment Notes Apr, Nonrheumatic aortic (valve) stenosis (ICD-10 - I35.0) s/p SAVR No longer f/u with [employer]. Denies CP, palpitations or lightheadedness Denies SOB, edema or orthopnea. Echo at year 5 (2025) Apr, IFG (impaired fasting glucose) (ICD-10 - R73.01) Healthy diet, exercise and maintenance of BMI < 30. Yearly A1C Apr, Essential hypertension (ICD-10 - I10) This patient is instructed to consume a healthy, low-fat, low-salt diet. They are also encouraged to continue exercise to achieve/maintain a normal BMI. He questioned why his BP is elevated at times. Explained normal physiologic response to exercise, pain and fever is for the HR and SBP to increase. Resting will allow the SBP to normalize. Patient is instructed on home BP measurements: - rest for 5 minutes w/o talking- positioned w/ feet on floor and arm supported- average best 2/3 readings w/ goal < 135/85 Apr, Hyperlipidemia type II (ICD-10 - E78.01) Instructed on diet and exercise with continued statin therapy.Discussed the beneficial effects of lowering cholesterol in reducing the risk for cerebrovascular and cardiovascular disease. Apr, Prostate cancer (ICD-10 - C61) No s/s recurrence. 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 Normal Fe, B12, FA Stable > 13gms No s/s GIB Last colonoscopy 2020 [facility] [employer] Other Evaluation note 04-24-2023 Note Date & Type Note Facility 04-24-2023 Evaluation note Encounter Date Diagnosis Assessment Notes Mar, Acute blood loss anemia (ICD-10 - D62) [facility] Other Evaluation note 11-06-2022 Note Date & Type Note Facility 11-06-2022 Evaluation note Encounter Date Diagnosis Assessment Notes Oct, Nonrheumatic aortic (valve) stenosis (ICD-10 - I35.0) Control BP. f/u Cardiology. Denies CP, tachycardia or lightheadedness Oct, IFG (impaired fasting glucose) (ICD-10 - R73.01) Healthy diet, exercise and maintain BMI < 30. A1C yearly Oct, Essential hypertension (ICD-10 - I10) This patient is instructed to consume a healthy, low-fat, low-salt diet. They are also encouraged to continue exercise to achieve/maintain a normal BMI. Oct, Hyperlipidemia type II (ICD-10 - E78.01) Diet and exercise with continued statin therapy. Oct, Prostate cancer (ICD-10 - C61) PSA suppressed w/o s/s recurrence. f/u Oct, Medicare annual wellness visit, subsequent (ICD-10 - Z00.00) Personalized health advice was given to the beneficiary including a written plan for screenings discussed and provided. Advanced care planning reviewed and/or information given as requested. Additional counseling was provided here today in regards to, [ ]. The above visit was performed by [ ], under direct supervision of [ ]. Document reviewed and amended by provider signed below. Healthy diet and exercise. Reviewed age-appropriate preventive testing recommended. Oct, High risk medication use (ICD-10 - Z79.899) [facility] [employer] Other Hospital Discharge instructions 10-04-2022 Note Date & Type Note Facility 10-04-2022 Hospital Discharg e instructions Patient Education 10/04/2022 14:12:30 Cancer Screening for Men Cancer Screening for Men A cancer screening is a test or exam that checks for cancer. Your health care provider will recommend specific cancer screenings based on your age, personal history, and family history of cancer. Work with your health care provider to create a cancer screening schedule that protects your health. Why is cancer screening done? Cancer screening is done to look for cancer in the very early stages, before it spreads and becomes harder to treat and before you would start to notice symptoms. Finding cancer early improves the chances of successful treatment. It may save your life. Who should be screened for cancer? All men should be screened for colorectal cancer and skin cancer. Your health care provider may recommend screenings for other types of cancer if: You had cancer before. You have a family member with cancer. You have abnormal genes that could increase the risk of cancer. You have risk factors for certain cancers, such as smoking. When you should be screened for cancer depends on: Your age. Your medical history and your family's medical history. Certain lifestyle factors, such as smoking. Environmental exposure, such as to asbestos. What are some common cancer screenings? Lung cancer Lung cancer screening is done with a CT scan that looks for abnormal cells in the lungs. Discuss lung cancer screening with your health care provider if you are 55 74 years old and if any of the following apply to you: You currently smoke. You used to smoke heavily. You have a smoking history of 1 pack a day for 30 years or 2 packs a day for 15 years. You have quit smoking within the past 15 years. If you smoke heavily or if you used to smoke, you may need to be screened every year. Prostate cancer Prostate cancer screening is done with blood tests and an exam in which a health care provider uses a gloved finger to check prostate size (digital rectal exam). You may need to be screened for prostate cancer if: You have risk factors of prostate cancer, such as being or having a close family member with prostate cancer. You have inherited gene changes or a genetic condition, including BRCA1 or BRCA2 gene mutations or Parker syndrome. You have symptoms of prostate cancer, such as problems urinating or erectile dysfunction. Prostate cancer screening for men with average risk may start at age 50. Men with risk factors may need to be screened earlier at age 40 45. Once you have been screened for prostate cancer, future screening may be recommended based on the results of your blood tests. Colorectal cancer All adults should have screening for colorectal cancer starting at age 50 and continuing until age 75. Your health care provider may recommend screening at age 45. You will have tests every 1 10 years, depending on your results and the type of screening test. If you have a family history of colon or rectal cancer or other risk factors, you may need to start having screenings earlier. Talk with your health care provider about which screening test is right for you and how often you should be screened. Colorectal cancer screening looks for cancer or for growths called polyps that often form before cancer starts. Tests to look for cancer or polyps include: Colonoscopy or flexible sigmoidoscopy. For these procedures, a flexible tube with a small camera is inserted into the rectum. CT colonography. This test uses X-rays and a contrast dye to check the colon for polyps. If a polyp is found, you may need to have a colonoscopy so the polyp can be located and removed. Tests to look for cancer in the stool (feces) include: Guaiac-based fecal occult blood test (FOBT). This test detects blood in stool. It can be done at home with a kit. Fecal immunochemical test (FIT). This test detects blood in stool. For this test, you will need to collect stool samples at home. Stool DNA test. This test looks for blood in stool and any changes in DNA that can lead to colon cancer. For this test, you will need to collect a stool sample at home and send it to a lab. Skin cancer Skin cancer screening is done by checking the skin for unusual moles or spots and any changes in existing moles. Your health care provider should check your skin for signs of skin cancer at every physical exam. You should check your skin every month and tell your health care provider right away if anything looks unusual. Men with a uzpsol-gibv-lewoiv risk for skin cancer may want to see a marketing graphics specialist (paperhanger pipe) for an annual body check. Where to find more information National Cancer [employer]: https://www.cancer.gov/about-ca ncer/screening Centers for Disease Control and Prevention: https://www.cdc.gov/cancer/dcpc /prevention/screening.htm Citizen Of [place] Cancer Society: https://www.cancer.org/latest-n ews/0-khemil-jokuyfbbi-tests-fo r-men.html Contact a health care provider if: You have concerns about any signs or symptoms of cancer, such as: ?Moles that have an unusual shape or color. ?Changes in existing moles. ?A sore on your skin that does not heal. ?Blood in your urine or stool. ?Fatigue that does not go away. ?Frequent pain or cramping in your abdomen. ?Coughing or trouble breathing that does not go away. ?Coughing up blood. ?Losing weight without trying. ?Changes in urination habits. ?Painful urination or ejaculation. Summary Be aware of and watch for signs and symptoms of cancer, especially symptoms of lung cancer, prostate cancer, colorectal cancer, and skin cancer. Early detection of cancer with cancer screening may save your life. Talk with your health care provider about your specific cancer risks. Work together with your health care provider to create a cancer screening plan that is right for you. This information is not intended to replace advice given to you by your health care provider. Make sure you discuss any questions you have with your health care provider. Document Released: 05/10/2017 Document Revised: 05/02/2019 Document Reviewed: 05/10/2017 [employer] Patient Education 2020 [email or web address]. Follow Up Care 09/06/2021 09:13:29 With:ROHINI FRY PA-C, URL Address: [address] [place] [address] [place] [address] When: Unknown [facility] Evaluation + Plan note Note Date & Type Note Facility Evaluation + Plan note Future Appointments Appointment Date:10/09/2023 08:30:00 AM Scheduled Provider:ROHINI FRY PA-C Location:[facility] Appointment Type:URO Office Visit Diagnostic Tests PendingPSA Total 10/04/22 [facility] Evaluation note Note Date & Type Note Facility Evaluation note No Information [facility] [employer] Other Evaluation note Note Date & Type Note Facility Evaluation note Diagnosis Onset Date Hypercholesterolemia acute Hypertension acute IFG (impaired fasting glucose) acute Nonrheumatic aortic (valve) stenosis acute Prostate cancer acute Medicare annual wellness visit, subsequent noneactive [facility] Work Phone: History general Narrative - Reported Note Date & Type Note Facility History general Narrative - Reported Type Medical History HISTORY OF AORTIC VA LVE REPLACEMENT WITH BIOPROSTHETIC VALVE Medical History Prostate cancer Medical History Adenomatous polyp of ascending c olon Medical History IFG (impaired fasting glucose) Medical History Essential hypertension Medical History Hyperlipidemia type II Medical History Allergy to bee sting Medical History Acute blood loss anemia Medical History Other abnormalities of heart regan t Medical History Nonrheumatic aortic (valve) sten osis Medical History Acute allergic rhinitis due to p ollen Medical History HISTORY OF SUBURAL HEMATOMA Surgical History COLONOSCOPY 2020 Surgical History REPLACEMENT OF AORTI C VALVE - BIOPROSTHETIC 2020 Surgical History LEFT HEART CARDIAC CATH 2019 Surgical History ORIF LEFT RADIUS/HUMERUS 1992 Surgical History CYSTECTOMY NECK 1993 Surgical History CRANIOTOMY 2018 Hospitalization History SEE SURGICAL HX [employer] Other Hospital course Narrative Note Date & Type Note Facility Hospital course Narrative No data available for this section [facility] Progress note Note Date & Type Note Facility Progress note No data available for this section [facility] Summary Purpose Family History No Family History Records FoundNo Family History Records FoundNo Family History Records Found Advance Directives Advance Directive Response Recorded Date/ Time Advance Directives No September 18, 2023 4:11pm Chief Complaint and Reason for Visit Chief Complaint Medicare Wellness Reason for Visit Hypercholesterolemia Hypertension IFG (impaired fasting glucose) Nonrheumatic aortic (valve) stenosis Prostate cancer Medicare annual wellness visit, subsequent Additional Source Comments (unrecognized sect ion and content) No Status Records FoundNo Status Records FoundNo Status Records Found INFORMATION SOURCE (unrecogn ized section and content) DATE CREATED AUTHOR 02/11/2018 [facility] DATE CREATED AUTHOR AUTHOR'S ORGANIZ ATION 11/13/2022 [facility] DATE CREATED AUTHOR AUTHOR'S ORGANIZ ATION 11/03/2023 [facility] Patient Care team informatio n (unrecognized section and content) Team Status: Active Member Role Status Dates Juvenal Davila DO Primary Care Provider Active Team Status: Active Member Role Status Dates Juvenal Davila DO Primary Care Provide r, Attending Provider Active Start: October 24, 2023 Team Status: Inactive Member Role Status Dates Juvenal Davila DO Primary Care Provide r, Attending Provider Active Start: November 15, 2023 End: November 15, 2023 REASON FOR VISIT (unrecogniz ed section and content) [facility] Care Document LabsLab Results6 month Goals (unrecognized section and content) Goals may be documented in a n alternate section FOR RECORDS PERTAINING TO PATIENTS WHO ARE OR HAVE BEEN ENROLLED IN A CHEMICAL DEPENDENCY/SUBSTANCEABUSE PROGRAM, SOME INFORMATION MAY BE OMITTED. This clinical summary was aggregated from multiple sources. Caution should be exercised in using it in the provision of clinical care. This summary normalizes information from multiple sources, and as a consequence, information in this document may materially change the coding, format and clinical context of patient data. In addition, data may be omitted in some cases. CLINICAL DECISIONS SHOULD BE BASED ON THE PRIMARY CLINICAL RECORDS. [facility] [employer] [facility]. provides no warranty or guarantee of the accuracy or completeness of information in this document.
[2023-11-28 06:59] LABS: Basophils Absolute Auto 0.1 10^3/uL (0.0-0.1); Basophils Percent Auto 1.1 % (0.2-2.0); Eosinophils Absolute Auto 0.4 10^3/uL (0.0-0.7); Eosinophils Percent Auto 6.4 % (0.9-7.0); Hematocrit 40.6 % (42.0-54.0); Hemoglobin 13.3 g/dL (14.0-18.0); Immature Granulocytes Abs Auto 0.02 10^3/uL (0.00-0.03); Immature Granulocytes Pct Auto 0.3 % (0.0-0.5); Lymphocytes Absolute Auto 2.3 10^3/uL (1.2-3.8); Lymphocytes Percent Auto 38.1 % (20.5-60.0); Mean Corpuscular HGB Conc 32.8 g/dL (29.9-35.2); Mean Corpuscular Hemoglobin 29.2 pg (25.9-34.0); Mean Corpuscular Volume 89.2 fL (80.0-94.0); Mean Platelet Volume 10.4 fL (9.5-13.5); Monocytes Absolute Auto 0.5 10^3/uL (0.3-0.8); Monocytes Percent Auto 8.6 % (1.7-12.0); Neutrophils Absolute Auto 2.8 10^3/uL (1.4-6.5); Neutrophils Percent Auto 45.5 % (43.0-75.0); Platelet Count 189 10^3/uL (150-450); Red Blood Count 4.55 10^6/uL (4.70-6.10); Red Cell Distribution Width 12.2 % (11.0-15.0); White Blood Count 6.1 10^3/uL (4.0-11.0)
[2023-11-28 07:36] LABS: Alanine Aminotransferase 44 U/L (16-63); Albumin Globulin Ratio 1.1; Albumin Level 3.7 g/dL (3.4-5.0); Alkaline Phosphatase 71 U/L (46-116); Anion Gap 13.7; Aspartate Amino Transferase 20 U/L (15-37); BUN Creatinine Ratio 15.4; Bilirubin Total 0.6 mg/dL (0.2-1.0); Calcium 8.8 mg/dL (8.5-10.1); Carbon Dioxide 26.5 mmol/L (21.0-32.0); Chloride 106 mmol/L (98-107); Chol HDL Ratio 2.9; Cholesterol 139 mg/dL (<=200); Estimated GFR (African America >60 (>=60); Estimated GFR (Non-African Ame >60 (>=60); Globulin 3.3 g/dL; Glucose 96 mg/dL (74-106); HDL Cholesterol 48 mg/dL (40-60); LDL Cholesterol Calculated 64.4 mg/dL; Potassium 4.2 mmol/L (3.5-5.1); Sodium 142 mmol/L (136-145); Triglycerides 133 mg/dL (<=150); VLDL CHOLESTEROL 26.6 mg/dL
== END 2023-11-28 06:44 | disposition home or self-care (01) ==
LOC: LAB 06:44
PROVIDERS: PCP Internal Medicine; Visit Provider Internal Medicine
DX: R73.01 Impaired fasting glucose (principal); I10 Essential (primary) hypertension; E78.00 Pure hypercholesterolemia, unspecified
CPT/HCPCS: 36415; 80053; 80061; 85025

== ENCOUNTER 2024-05-22 06:59 | Outpatient (OUT) | payer MEDICARE, SELFPAY ==
--- OUTSIDE RECORDS SUMMARY | 2024-05-22 07:05 | XMS_ITS | CCD ---
Author Organization [facility] Care Team Providers Care Forensics Analyst Name Role Phone JUVENAL DAVILA Unavailable Unavailable AHMED, MOHAMMHUMPHREY S Unavailable Unavailable BOMMANA, VENUGOPALA Unavailable Unavailable NARWAL, RAWAN Unavailable Unavailable SHELKE, MALISSA R Unavailable Unavailable JUVENAL DAVILA Unavailable Unavailable HILDA SKINNER Unavailable Unavailable JUVENAL DAVILA Primary Care Physician JENA, DR HURLEY Admitting Unavailable BALL, DR HURLEY Attending Unavailable BALL, DR HURLEY Primary Care Unavailable JENA, DR HURLEY Consulting Unavailable MISC, DR ASH Admitting Unavailable MISC, DR ASH Attending Unavailable JENA, DR HURLEY Primary Care Unavailable MISC, DR ASH Consulting Unavailable Juvenal Davila Unavailable RAINER FRY Attending Unavailab VELASQUEZ Roque Attending Unavailable VELASQUEZ BLACKBURN Referring Unavailable Allergies Allergy Classification Reported Allergen(s) Allergy Type Date of Onset Reaction(s) Facility (1 source) patient allergy list reviewed by nurse or physicia Propensity to adverse reactions 7 Comment:Done [facility] Other (1 source) No Known Medication Allergies; Translations: [No Known Medication Allergies] Propensity to adverse reactions (disorder) [facility] Repository Medications Current Medications Medication Drug Class(es) Dates Sig (Normalized) Sig (Original) aspirin 81 mg delayed release oral tablet (10 sources) Platelet Aggregation Inhibitor, Nonsteroidal Anti-inflammatory Drug Start: 12-26-2023 End: 12-26-2023 take 1 tablet by mouth once daily Aspirin Discontinued 0 .ROUTE .COMPLEX December 26, 2023 1:14pm December 26, 2023 6:13pm TAKE 1 TABLET BY MOUTH EVERY DAY Start: 11-14-2023 End: 12-26-2023 take 81 mg by mouth once daily Aspirin Active 81 MG PO Daily 90 December 26, 2023 6:13pm Start: 06-30-2021 take 1 mg by mouth once daily aspirin 81 mg Oral EC Tab mg tab(s), Oral, Daily, Refills(s) 0 Start Date: 06/30/21 Status: Ordered atorvastatin 40 mg oral tablet (8 sources) HMG-CoA Reductase Inhibitor Start: 02-07-2024 take 1 tablet by mouth once daily in the evening Atorvastatin Active 0 .ROUTE .COMPLEX 90 February 07, 2024 7:39am TAKE 1 TABLET BY MOUTH EVERY DAY IN THE EVENING Start: 11-14-2023 End: 02-07-2024 take 40 mg by mouth once daily in the evening Atorvastatin Discontinued 40 MG PO Every evening November 14, 2023 12:00am February 07, 2024 7:39am take 1 tablet by kerrie th once daily in the evening Atorvastatin Calcium 40 MG TAKE 1 TABLET BY MOUTH EVERY DAY IN THE EVENING Active [id number] 0.3 ml EPINEPHrine 1 mg/ml auto-injector (7 sources) alpha-Adrenergic Agonist, beta-Adrenergic Agonist, Catecholamine Start: 11-14-2023 Epinephrine Activ e IM November 14, 2023 12:00am INJECT 1 PEN NEEDED FOR BEE STING AFTER WHICH SHOULD BE EVALUATED IN ER EpiPen 2-Michael 0.3 MG/0.3ML as directed Injection Active 24 hr metoprolol succinate 25 mg extended release oral tablet (9 sources) beta-Adrenergic Stacia Start: 03-24-2024 take 1 tablet by mouth once daily Metoprolol Succinate Active 0 .ROUTE .COMPLEX 90 March 24, 2024 10:06am TAKE 1 TABLET BY MOUTH EVERY DAY Start: 11-14-2023 End: 03-24-2024 take 25 mg by mouth once daily Metoprolol Succinate Di scontinued 25 MG PO Daily November 14, 2023 12:00am March 24, 2024 10:06am Start: 06-30-2021 take 1 mg by mouth [...] [Bee allergy status] Episodic Cancer of prostate (13 sources) Malignant tumor of prostate; Translations: [Carcinoma of prostate] 05-16-2019 Chronic Cancer of prostate (6 sources) Personal history of malignant neoplasm of prostate; Translations: [History of malignant neoplasm of prostate] Onset: 09-27-2022 Episodic Deficiency and other anemia (1 source) Other specified anemias Episodic Deficiency and other anemia (1 source) Anemia; Translations: [Anemia, unspecified] 05-20-2024 Episodic Deficiency and other anemia (1 source) Anemia, unspecified; Translations: [Anemia, unspecified] 05-20-2024 Episodic Diabetes mellitus without complication (15 sources) Impaired fasting glucose; Translations: [Impaired fasting glycemia] Onset: 11-13-2022 Episodic Disorders of lipid metabolism (20 sources) Hyperlipidemia; 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] Onset: 05-06-2015 07-02-2019 Chronic Essential hypertension (16 sources) Hypertensive disorder; Translations: [Essential (primary) hypertension] Onset: 11-13-2022 07-02-2019 Chronic Genitourinary symptoms and ill-defined conditions (1 source) Genuine stress incontinence 05-16-2019 Chronic Genitourinary symptoms and ill-defined conditions (2 sources) Increased frequency of urination; Translations: [Nocturia] 07-08-2019 Episodic Heart valve disorders (14 sources) Aortic valve stenosis; Translations: [Aortic valve [...] immunization] Episodic Other aftercare (2 sources) Other residential (current) drug therapy; Translations: [OTH 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 DRUG THERAPY] Onset: 11-13-2022 Episodic Other aftercare (1 source) Long-term current use of drug therapy; Translations: [Other car attendant (current) drug therapy] Episodic Other and unspecified [...] colon] Episodic Other and unspecified benign neoplasm (2 sources) Adenomatous polyp of colon ; Translations: [Benign [...] Interpretation Reference Range Facility Screenson 11-02-2023 Screens [id number] Normal [facility] Patient Educationon 10-30-19 24 Patient Education Urology Erectile Dysfunction Erectile dysfunction [...] these instructions at home: Medicines ? Take [id number] and prescription medicines only as told by [...] include cig (more content not included)... Normal [facility] Provider Letteron 10-30-2023 Provider Letter (Inserted Image. Radha ble to display) JUVENAL DAVILA, [address] [place] [address] Re: RAMÓN ACUÑA Date of : [address] JENA CHA, JUVENAL ACUÑARAMÓN was evaluated at [facility] 10/09/2023 08:30:00 As this patient [...] Thanks! Provider Signature: Rohini Fry PA-C Physician Energy Manager [facility] [address] [place] [address] Normal [facility] Urology Office/Clinic Noteon 10-30-2023 Urology Office/Clinic Note [...] prostatectomy w/ pelvic lymphadenectomy done 10/18/16. Path Liz 6 and [place] 7. Negative nodes and negative SV. UA [...] E&M of Est. Patient Low 20-29 Min 90709 2. 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 advises not bothersome today. does now wish to discuss tx options Ordered: E&M of Est. Patient Low 20-29 Min 86453 3. BMI 26.0-26.9,adult (Z68.26: Body mass index [BMI] 26.0-26.9, adult) healthy diet encouraged Ordered: Body Mass Index (BMI) documented 3008F E&M of Est. Patient Low 20-29 Min 37428 Orders: Current tobacco non-user 1036F Depression Screening Negative 3352F Influenza immunization status assessed 1030F Most recent diastolic blood pressure 80-89 mm Hg 3079F Patient screen for fall risk: no falls in last year or 1 fall with no injury in last year 1101F Systolic BP <130 mm Hg (Most Recent) 3074F Urnls Dip Stick Auto w/o Microscopy POC 44115 Follow-up With When Contact Information ROHINI FRY PA-C, URL Only if needed [address] [place] [place] [address] [facility] (1) Additional Instructions: Patient Education Erectile Dysfunction [...] virus vaccine, inacti (more content not included)... Normal [facility] Comment on above: Result Comment: Elec tronically Signed By: ROHNII FRY PA-C\.br\Date and Time Signed: 10/30/23 12:29 EST Lab Reportson 10-25-2023 Lab Reports [id number] Normal [facility] No Panel Informationon 10-24 Prostate Specific Antigen Total <0.13 ng/mL <=4.00 [facility] Provider Letteron 09-13-2023 Provider Letter (Inserted Image. Radha ble to display) September 13, 2023 RAMÓN ACUÑA [address] [id number] : 1955 Dear Ramón , We have [...] [facility] [address], [place] [address] [facility] A1C with Estimated Average G luon 11-06-2022 A1C with Estimated Average Glu [facility] Other Basic Metabolic Panelon 10-25 Calcium [Mass/Vol] 9.8232283 mg/dL 8.5-10 .1 mg/dL [facility] Other CO2 [Moles/Vol] 27.00192634 mmol/L 21.0-3 2.0 mmol/L [facility] Other Creatinine [Mass/Vol] 0.47225133 mg/dL Critically low 0.70-1.30 mg/dL [facility] Other Potassium [Moles/Vol] 3.77553632 mmol/L 3.5-5.1 mmol/L [facility] Other Urea nitrogen [Mass/Vol] 11.0588919 mg/dL 7.0-18.0 mg/dL [facility] Other Basic Metabolic Panel see note [facility] Other Basic Metabolic Panel 142 mmol/L 136-145 mmol/L [facility] Other Basic Metabolic Panel 93 mg/dL 74-106 mg/dL [facility] Other Basic Metabolic Panel >60 mL/min/1.73m2 >=60 mL/min/1.73 m2 [facility] Other CBC AUTO DIFFon 03-13-2023 BASO # 0.1 103/ul Normal 0.0-0.1 [facility] Comment on above: Performed By: #### C BC #### [facility] [address] [place] [address] Dr. Serafin Bloom Basophils/100 WBC (Bld) 1.0 % Normal 0.2-2.0 [facility] Comment on above: Performed By: #### C BC #### [facility] [address] [place] [address] Dr. Serafin Bloom EO # 0.3 103/ul Normal 0.0-0.7 [facility] Comment on above: Performed By: #### C BC #### [facility] [address] [place] [address] Dr. Serafin Bloom Eosinophils/100 WBC (Bld) 4.7 % Normal 0.9-7.0 [facility] Comment on above: Performed By: #### C BC #### [facility] [address] [place] [address] Dr. Serafin Bloom Erythrocyte distribution width (RBC) [Ratio] 12.2 % Normal 11.0-15.0 [facility] Comment on above: Performed By: #### C BC #### [facility] [address] [place] [address] Dr. Serafin Bloom Hematocrit (Bld) [Volume fraction] 42.1 % Normal 42.0-54.0 [facility] Comment on above: Performed By: #### C BC #### [facility] [address] [place] [address] Dr. Serafin Bloom Hemoglobin (Bld) [Mass/Vol] 13.8 g/dL Critically low 14.0-18.0 [facility] Comment on above: Performed By: #### C BC #### [facility] [address] [place] [address] Dr. Serafin Bloom IG # 0.02 10e3/ul Normal 0.00-0.03 [facility] Comment on above: Performed By: #### C BC #### [facility] [address] [place] [address] Dr. Serafin Bloom IG % 0.3 % Normal 0.0-0.5 [facility] Comment on above: Performed By: #### C BC #### [facility] [address] [place] [address] Dr. Serafin Bloom LYMPH # 2.6 103/ul Normal 1.2-3.8 [facility] Comment on above: Performed By: #### C BC #### [facility] [address] [place] [address] Dr. Serafin Bloom Lymphocytes/100 WBC (Bld) 36.9 % Normal 20.5-60.0 [facility] Comment on above: Performed By: #### C BC #### [facility] [address] [place] [address] Dr. Serafin Bloom MANUAL DIFF REQ NO Normal [facility] Comment on above: Performed By: #### C BC #### [facility] [address] [place] [address] Dr. Serafin Bloom MCH (RBC) [Entitic mass] 29.1 pg Normal 25.9-34.0 [facility] Comment on above: Performed By: #### C BC #### [facility] [address] [place] [address] Dr. Serafin Bloom MCHC (RBC) [Mass/Vol] 32.8 g/dL Normal 29.9-35.2 [facility] Comment on above: Performed By: #### C BC #### [facility] [address] [place] [address] Dr. Serafin Bloom MCV (RBC) [Entitic vol] 88.6 fL Normal 80.0-94.0 [facility] Comment on above: Performed By: #### C BC #### [facility] [address] [place] [address] Dr. Serafin Bloom MONO # 0.7 103/ul Normal 0.3-0.8 [facility] Comment on above: Performed By: #### C BC #### [facility] [address] [place] [address] Dr. Serafin Bloom Monocytes/100 WBC (Bld) 9.4 % Normal 1.7-12.0 [facility] Comment on above: Performed By: #### C BC #### [facility] [address] [address] [address] Serafin Bloom NEUT # 3.3 103/ul Normal 1.4-6.5 [facility] Comment on above: Performed By: #### C BC #### [facility] [address] [address] [address] Serafin Bloom Neutrophils/100 WBC (Bld) 47.7 % Normal 43.0-75.0 [facility] Comment on above: Performed By: #### C BC #### [facility] [address] [address] [address] Serafin Bloom Platelet mean volume (Bld) [Entitic vol] 10.2 fL Normal 9.5-13.5 [facility] Comment on above: Performed By: #### C BC #### [facility] [address] [place] [address] Dr. Serafin Bloom PLT 192 103/ul Normal 150-450 [facility] Comment on above: Performed By: #### C BC #### [facility] [address] [address] [address] Serafin Bloom RBC 4.75 106/ul Normal 4.70-6.10 [facility] Comment on above: Performed By: #### C BC #### [facility] [address] [place] [address] Dr. Serafin Bloom WBC 7.0 103/ul Normal 4.0-11.0 [facility] Comment on above: Performed By: #### C BC #### [facility] [address] [place] [address] Dr. Serafin Bloom Complete Blood Count and Dif marisela 11-06-2022 Anisocytosis Ql (Bld) [facility] Other Basophilic stippling LM Ql (Bld) [facility] Other RBC morphology finding Nom (Bld) [facility] Other GLYCOHEMOGLOBIN A1Con 2022 ADA RECOMMENDATION SEE BELOW Normal [facility] Comment on above: Result Comment: ADA RECOMMENDED LIMIT 4.0 - 6.0 ADA THERAPEUTIC TARGET < 7.0 ACTION SUGGESTED > 7.0 Performed By: #### A 1C #### [facility] [address] [place] [address] Dr. Serafin Bloom Glucose [Mass/Vol] 108 mg/dL Normal [facility] Comment on above: Performed By: #### A 1C #### [facility] [address] [place] [address] Dr. Serafin Bloom HbA1c (Bld) [Mass fraction] 5.4 % Normal 4.5-6.2 [facility] Comment on above: Performed By: #### A 1C #### [facility] [address] [place] [address] Dr. Serafin Bloom LIPID PROFILEon 11-06-2022 CHOL-HDL RATIO NORM SEE BELOW Normal [facility] Comment on above: Result Comment: 3.3 - 4.4 LOW RISK 4.4 - 7.1 AVERAGE RISK 7.1 - 11.0 MODERATE RISK >11.0 HIGH RISK Performed By: #### A LT, LIPID, BMP #### [facility] [address] [place] [address] Dr. Serafin Bloom Cholesterol [Mass/Vol] 145 mg/dL <=200 mg/dL [facility] Comment on above: Performed By: #### A LT, LIPID, BMP #### [facility] [address] [place] [address] Dr. Serafin Bloom Cholesterol in HDL [Mass/Vol] 47 mg/dL 40-60 mg/dL [facility] Comment on above: Performed By: #### A LT, LIPID, BMP #### [facility] [address] [place] [address] Dr. Serafin Bloom Cholesterol in LDL [Mass/Vol] 67.6 mg/dL Normal [facility] Comment on above: Performed By: #### A LT, LIPID, BMP #### [facility] [address] [place] [address] Dr. Serafin Bloom Cholesterol.total/ Cholesterol in HDL [Mass ratio] 3.1 {ratio} [facility] Comment on above: Performed By: #### A LT, LIPID, BMP #### [facility] [address] [address] [address] Serafin Bloom HDL NORMAL > or = 60 mg/dl - LO W CARDIOVASCULAR RISK <40 mg/dl - HIGH CARDIOVASCULAR RISK Normal [facility] Comment on above: Performed By: #### A LT, LIPID, BMP #### [facility] [address] [address] [address] Serafin Bloom LDL CALC NORMAL SEE BELOW Normal [facility] Comment on above: Result Comment: <100 mg/dl OPTIMAL 100 - 129 mg/dl NEAR OR ABOVE OPTIMAL 130 - 159 mg/dl BORDERLINE HIGH 160 - 189 mg/dl HIGH >190 mg/dl VERY HIGH Performed By: #### A LT, LIPID, BMP #### [facility] [address] [address] [address] Serafin Bloom Triglyceride [Mass/Vol] 152 mg/dL Critically high <=150 mg/dL [facility] Comment on above: Performed By: #### A LT, LIPID, BMP #### [facility] [address] [address] [address] Serafin Bloom VLDL CALC 30.4 mg/dL Normal [facility] Comment on above: Performed By: #### A LT, LIPID, BMP #### [facility] [address] [address] [address] Serafin Bloom Lipid Panelon 11-06-2022 Lipid Panel > or = 60 mg/dl - LO W CARDIOVASCULAR RISK <40 mg/dl - HIGH CARDIOVASCULAR RISK [facility] Other Lipid Panel SEE BELOW [facility] Other Lipid Panel 67.6 mg/dL [facility] Other Lipid Panel 30.4 mg/dL [facility] Other PROF CHEM 8 (BAS METB)on Anion gap [Moles/Vol] 12.4 mmol/L [facility] Comment on above: Performed By: #### A LT, LIPID, BMP #### [facility] [address] [address] [address] Serafin Bloom Calcium [Mass/Vol] 9.3 mg/dL Normal 8.5-10.[address] [facility] Comment on above: Performed By: #### A LT, LIPID, BMP #### [facility] [address] [address] [address] Serafin Bloom Chloride [Moles/Vol] 106 mmol/L 98-107 mmol/L [facility] Comment on above: Performed By: #### A LT, LIPID, BMP #### [facility] [address] [address] [address] Serafin Bloom CO2 [Moles/Vol] 27.3 mmol/L Normal 21.0-32.0 [facility] Comment on above: Performed By: #### A LT, LIPID, BMP #### [facility] [address] [address] [address] Serafin Bloom Creatinine [Mass/Vol] 0.66 mg/dL Critically low 0.70-1.30 [facility] Comment on above: Performed By: #### A LT, LIPID, BMP #### [facility] [address] [address] [address] Serafin Bloom EGFR-AF MALTESE >60 Normal >=60 [facility] Comment on above: Performed By: #### A LT, LIPID, BMP #### [facility] [address] [address] [address] Serafin Bloom EGFR-NON AF MALTESE >60 Normal >=60 [facility] Comment on above: Performed By: #### A LT, LIPID, BMP #### [facility] [address] [address] [address] Serafin Bloom Glucose [Mass/Vol] 93 mg/dL Normal 74-[address] [facility] Comment on above: Performed By: #### A LT, LIPID, BMP #### [facility] [address] [place] [address] Dr. Serafin Bloom Potassium [Moles/Vol] 3.7 mmol/L Normal 3.5-5.1 [facility] Comment on above: Performed By: #### A LT, LIPID, BMP #### [facility] [address] [address] [address] Serafin Bloom Sodium [Moles/Vol] 142 mmol/L Normal 136-145 [facility] Comment on above: Performed By: #### A LT, LIPID, BMP #### [facility] [address] [address] [address] Serafin Bloom Urea nitrogen [Mass/Vol] 11.0 mg/dL Normal 7.0-18.0 [facility] Comment on above: Performed By: #### A LT, LIPID, BMP #### [facility] [address] [address] [address] Serafin Bloom Urea nitrogen/Creatinin e [Mass ratio] 16.7 mg/mg [facility] Comment on above: Performed By: #### A LT, LIPID, BMP #### [facility] [address] [place] [address] Dr. Serafin Bloom SGPTon 11-06-2022 ALT [Catalytic activity/Vol] 38 U/L 16-63 U/L [facility] Comment on above: Performed By: #### A LT, LIPID, BMP #### [facility] [address] [address] [address] HEAD WO CONTRASTon [...] by:JIHAN Monsivaisigned by:Delmi Ahumada MD02/06/18Final result Normal [facility] Basic Metabolic Profon 01-24 (cont.) Normal [facility] Comment on above: Result Comment: Aver age GFR for 60-69 years old: 85 mL/min/1.73sq mChronic Kidney Disease: <60 mL/min/1.73sq mKidney failure: <15 mL/min/1.73sq meGFR calculated using average adult body mass. Additional eGFR calculator available at:[email or web address] [facility] [address] [place] [address] Performed By: #### C DP, PT, PTT, CP, CRP, TSHX, SED ####[facility] [id number] [place] [address] Anion gap 12 mmol/L Normal 9- [facility] Comment on above: Performed By: #### C DP, PT, PTT, CP, CRP, TSHX, SED ####[facility] [id number] [place] [address] Calcium 7.9 mg/dL Low 8.6-10.4 [facility] Comment on above: Performed By: #### C DP, PT, PTT, CP, CRP, TSHX, SED ####[address] [address] Chloride 109 mmol/L High 98-107 [facility] Comment on above: Performed By: #### C DP, PT, PTT, CP, CRP, TSHX, SED ####[address] [address] CO2 18 mmol/L Low 20-31 [facility] Comment on above: Performed By: #### C DP, PT, PTT, CP, CRP, TSHX, SED ####[address] [address] Creatinine 0.45 mg/dL Low 0.70-1.20 [facility] Comment on above: Performed By: #### C DP, PT, PTT, CP, CRP, TSHX, SED ####[address] [address] eGFR (non-black) mL/min/{1.73_m2} Normal >60 [facility] Comment on above: Performed By: #### C DP, PT, PTT, CP, CRP, TSHX, SED ####[address] [address] Glucose mass conc 113 mg/dL High 70-99 [facility] Comment on above: Performed By: #### C DP, PT, PTT, CP, CRP, TSHX, SED ####[address] [address] Potassium molar conc 3.9 mmol/L Normal 3.7-5.3 [facility] Comment on above: Performed By: #### C DP, PT, PTT, CP, CRP, TSHX, SED ####[address] [place] [address] Sodium 139 mmol/L Normal 135-144 [facility] Comment on above: Performed By: #### C DP, PT, PTT, CP, CRP, TSHX, SED ####[address] [address] Urea nitrogen 17 mg/dL Normal 8-23 [facility] Comment on above: Performed By: #### C DP, PT, PTT, CP, CRP, TSHX, SED ####[address] [address] BUN/CRE Ratio NOT REPORTED Normal - [facility] Comment on above: Performed By: #### C DP, PT, PTT, CP, CRP, TSHX, SED ####[address] [address] Staging: NOT REPORTED Normal [facility] Comment on above: Performed By: #### C DP, PT, PTT, CP, CRP, TSHX, SED ####[address] [address] CBC with Diffon 01-24-2018 Abs. Basophil <0.03 Normal 0.00-0.20 [facility] Comment on above: Performed By: #### C DP, PT, PTT, CP, CRP, TSHX, SED ####[address] [address] Abs.Neutrophil (Seg) 6.94 k/uL Normal 1.50-8.10 [facility] Comment on above: Performed By: #### C DP, PT, PTT, CP, CRP, TSHX, SED ####[address] [address] Basophils/100 WBC Auto (Bld) 0 % Normal 0-2 [facility] Comment on above: Performed By: #### C DP, PT, PTT, CP, CRP, TSHX, SED ####[address] [address] Eosinophils 0.06 10*3/uL Normal 0.00-0.44 [facility] Comment on above: Performed By: #### C DP, PT, PTT, CP, CRP, TSHX, SED ####[address] [address] Eosinophils/100 leukocytes 1 % Normal 1-4 [facility] Comment on above: Performed By: #### C DP, PT, PTT, CP, CRP, TSHX, SED ####[address] [address] Erythrocyte distribution width Auto Ratio (RBC) 12.7 % Normal 11.8-14.4 [facility] Comment on above: Performed By: #### C DP, PT, PTT, CP, CRP, TSHX, SED ####[address] [address] Erythrocytes (RBC) 4.16 10*6/uL Low 4.21-5.77 [facility] Comment on above: Performed By: #### C DP, PT, PTT, CP, CRP, TSHX, SED ####[address] [address] Erythrocytes (RBC) 0.0 per 100 WBC Normal 0.0 M [facility] Comment on above: Performed By: #### C DP, PT, PTT, CP, CRP, TSHX, SED ####[address] [address] Granulocytes/100 WBC (Bld) 0.08 k/uL Normal 0.00-0.30 [facility] Comment on above: Result Comment: [address] [address] Performed By: #### C DP, PT, PTT, CP, CRP, TSHX, SED ####[address] [address] Hematocrit (HCT) 38.9 % Low 40.7-50.3 [facility] Comment on above: Performed By: #### C DP, PT, PTT, CP, CRP, TSHX, SED ####[address] [address] Hemoglobin mass conc (Bld) 12.4 g/dL Low 13.0-17.0 [facility] Comment on above: Performed By: #### C DP, PT, PTT, CP, CRP, TSHX, SED ####[address] [address] Immature granulocytes #/vol (Bld) 1 % High 0 [facility] Comment on above: Performed By: #### C DP, PT, PTT, CP, CRP, TSHX, SED ####[address] [address] Lymphocytes 2.32 10*3/uL Normal 1.10-3.70 [facility] Comment on above: Performed By: #### C DP, PT, PTT, CP, CRP, TSHX, SED ####[address] [address] Lymphocytes/100 leukocytes 22 % Low 24-43 [facility] Comment on above: Performed By: #### C DP, PT, PTT, CP, CRP, TSHX, SED ####[address] [address] MCH 29.8 pg Normal 25.2-33.5 [facility] Comment on above: Performed By: #### C DP, PT, PTT, CP, CRP, TSHX, SED ####[address] [address] MCHC mass conc (RBC) 31.9 g/dL Normal 28.4-34.8 [facility] Comment on above: Performed By: #### C DP, PT, PTT, CP, CRP, TSHX, SED ####[address] [address] MCV 93.5 fL Normal 82.6-102.9 [facility] Comment on above: Performed By: #### C DP, PT, PTT, CP, CRP, TSHX, SED ####[address] [address] Monocytes 1.12 10*3/uL Normal 0.10-1.20 [facility] Comment on above: Performed By: #### C DP, PT, PTT, CP, CRP, TSHX, SED ####[address] [address] Monocytes/100 leukocytes 11 % Normal 3-12 [facility] Comment on above: Performed By: #### C DP, PT, PTT, CP, CRP, TSHX, SED ####[address] [address] Neutrophil (Seg) 66 % High 36-65 [facility] Comment on above: Performed By: #### C DP, PT, PTT, CP, CRP, TSHX, SED ####[address] [address] Platelet mean volume (PMV) 11.1 fL Normal 8.1-13.5 [facility] Comment on above: Performed By: #### C DP, PT, PTT, CP, CRP, TSHX, SED ####[address] [address] Platelets 211 10*3/uL Normal 138-453 [facility] Comment on above: Performed By: #### C DP, PT, PTT, CP, CRP, TSHX, SED ####[address] [place] [address] WBC (Leukocytes) 10.5 10*3/uL Normal 3.5-11.3 [facility] Comment on above: Performed By: #### C DP, PT, PTT, CP, CRP, TSHX, SED ####[address] [address] Auto Diff Performed NOT REPORTED Normal [facility] Comment on above: Performed By: #### C DP, PT, PTT, CP, CRP, TSHX, SED ####[address] [address] Erythrocyte morphology NOT REPORTED Normal [facility] Comment on above: Performed By: #### C DP, PT, PTT, CP, CRP, TSHX, SED ####[address] [address] Platelets NOT REPORTED Normal [facility] Comment on above: Performed By: #### C DP, PT, PTT, CP, CRP, TSHX, SED ####[address] [address] WBC Morphology NOT REPORTED Normal [facility] Comment on above: Performed By: #### C DP, PT, PTT, CP, CRP, TSHX, SED ####[address] [address] Discharge Summaryon 01-25-20 18 HIM IP Note OR Billet Worker Normal [facility] Plan of Careon 01-24-2018 HIM IP Note OR Billet Worker Normal [facility] Progress Noteon 01-24-2018 HIM IP Note OR Billet Worker Normal [facility] HIM IP Note OR Billet Worker Normal [facility] HIM IP Note OR Billet Worker Normal [facility] Basic Metabolic Profon 01-23 (cont.) Normal [facility] Comment on above: Result Comment: Aver age GFR for 60-69 years old: 85 mL/min/1.73sq mChronic Kidney Disease: <60 mL/min/1.73sq mKidney failure: <15 mL/min/1.73sq meGFR calculated using average adult body mass. Additional eGFR calculator available at:http://www.[email or web address]_crcl_2012.htm[place] [address] [place] [address] Performed By: #### C DP, PT, PTT, CP, CRP, TSHX, SED ####[address] [address] Anion gap 14 mmol/L Normal 9-17 [facility] Comment on above: Performed By: #### C DP, PT, PTT, CP, CRP, TSHX, SED ####[address] [address] Calcium 8.6 mg/dL Normal 8.6-10.4 [facility] Comment on above: Performed By: #### C DP, PT, PTT, CP, CRP, TSHX, SED ####[address] [address] Chloride 109 mmol/L High 98-107 [facility] Comment on above: Performed By: #### C DP, PT, PTT, CP, CRP, TSHX, SED ####[address] [address] CO2 20 mmol/L Normal 20-31 [facility] Comment on above: Performed By: #### C DP, PT, PTT, CP, CRP, TSHX, SED ####[address] [address] Creatinine 0.61 mg/dL Low 0.70-1.20 [facility] Comment on above: Performed By: #### C DP, PT, PTT, CP, CRP, TSHX, SED ####[address] [address] eGFR (non-black) mL/min/{1.73_m2} Normal >60 [facility] Comment on above: Performed By: #### C DP, PT, PTT, CP, CRP, TSHX, SED ####[address] [address] Glucose mass conc 149 mg/dL High 70-99 [facility] Comment on above: Performed By: #### C DP, PT, PTT, CP, CRP, TSHX, SED ####[address] [address] Potassium molar conc 4.1 mmol/L Normal 3.7-5.3 [facility] Comment on above: Performed By: #### C DP, PT, PTT, CP, CRP, TSHX, SED ####[address] [address] Sodium 143 mmol/L Normal 135-144 [facility] Comment on above: Performed By: #### C DP, PT, PTT, CP, CRP, TSHX, SED ####[address] [address] Urea nitrogen 16 mg/dL Normal 8-23 [facility] Comment on above: Performed By: #### C DP, PT, PTT, CP, CRP, TSHX, SED ####[address] [address] BUN/CRE Ratio NOT REPORTED Normal 9-20 [facility] Comment on above: Performed By: #### C DP, PT, PTT, CP, CRP, TSHX, SED ####[address] [address] Staging: NOT REPORTED Normal [facility] Comment on above: Performed By: #### C DP, PT, PTT, CP, CRP, TSHX, SED ####[address] [address] CBC with Diffon 01-23-2018 Abs. Basophil <0.03 Normal 0.00-0.20 [facility] Comment on above: Performed By: #### C DP, PT, PTT, CP, CRP, TSHX, SED ####[address] [address] Abs.Neutrophil (Seg) 12.77 k/uL High 1.50-8.10 [facility] Comment on above: Performed By: #### C DP, PT, PTT, CP, CRP, TSHX, SED ####[address] [address] Basophils/100 WBC Auto (Bld) 0 % Normal 0-2 [facility] Comment on above: Performed By: #### C DP, PT, PTT, CP, CRP, TSHX, SED ####[address] [address] Eosinophils 10*3/uL Normal 0.00-0.44 [facility] Comment on above: Performed By: #### C DP, PT, PTT, CP, CRP, TSHX, SED ####[address] [address] Eosinophils/100 leukocytes 0 % Low 1-4 [facility] Comment on above: Performed By: #### C DP, PT, PTT, CP, CRP, TSHX, SED ####[address] [address] Granulocytes/100 WBC (Bld) 0.07 k/uL Normal 0.00-0.30 [facility] Comment on above: Result Comment: [address] [address] Performed By: #### C DP, PT, PTT, CP, CRP, TSHX, SED ####[address] [place] [address] Immature granulocytes #/vol (Bld) 1 % High 0 [facility] Comment on above: Performed By: #### C DP, PT, PTT, CP, CRP, TSHX, SED ####[address] [address] Lymphocytes 1.10 10*3/uL Normal 1.10-3.70 [facility] Comment on above: Performed By: #### C DP, PT, PTT, CP, CRP, TSHX, SED ####[address] [address] Lymphocytes/100 leukocytes 7 % Low 24-43 [facility] Comment on above: Performed By: #### C DP, PT, PTT, CP, CRP, TSHX, SED ####[address] [address] Monocytes 0.82 10*3/uL Normal 0.10-1.20 [facility] Comment on above: Performed By: #### C DP, PT, PTT, CP, CRP, TSHX, SED ####[address] [address] Monocytes/100 leukocytes 6 % Normal 3-12 [facility] Comment on above: Performed By: #### C DP, PT, PTT, CP, CRP, TSHX, SED ####[address] [address] Neutrophil (Seg) 86 % High 36-65 [facility] Comment on above: Performed By: #### C DP, PT, PTT, CP, CRP, TSHX, SED ####[address] [address] Erythrocyte distribution width Auto Ratio (RBC) 13.0 % Normal 11.8-14.4 [facility] Comment on above: Performed By: #### C DP, PT, PTT, CP, CRP, TSHX, SED ####[address] [address] Erythrocytes (RBC) 4.70 10*6/uL Normal 4.21-5.77 [facility] Comment on above: Performed By: #### C DP, PT, PTT, CP, CRP, TSHX, SED ####[address] [address] Erythrocytes (RBC) 0.0 per 100 WBC Normal 0.0 M [facility] Comment on above: Performed By: #### C DP, PT, PTT, CP, CRP, TSHX, SED ####[address] [address] Hematocrit (HCT) 41.1 % Normal 40.7-50.3 [facility] Comment on above: Performed By: #### C DP, PT, PTT, CP, CRP, TSHX, SED ####[address] [address] Hemoglobin mass conc (Bld) 13.7 g/dL Normal 13.0-17.0 [facility] Comment on above: Performed By: #### C DP, PT, PTT, CP, CRP, TSHX, SED ####[address] [address] MCH 29.1 pg Normal 25.2-33.5 [facility] Comment on above: Performed By: #### C DP, PT, PTT, CP, CRP, TSHX, SED ####[address] [address] MCHC mass conc (RBC) 33.3 g/dL Normal 28.4-34.8 [facility] Comment on above: Performed By: #### C DP, PT, PTT, CP, CRP, TSHX, SED ####[address] [address] MCV 87.4 fL Normal 82.6-102.9 [facility] Comment on above: Performed By: #### C DP, PT, PTT, CP, CRP, TSHX, SED ####[address] [address] Platelet mean volume (PMV) 10.7 fL Normal 8.1-13.5 [facility] Comment on above: Performed By: #### C DP, PT, PTT, CP, CRP, TSHX, SED ####[address] [address] Platelets 229 10*3/uL Normal 138-453 [facility] Comment on above: Performed By: #### C DP, PT, PTT, CP, CRP, TSHX, SED ####[address] [address] WBC (Leukocytes) 14.8 10*3/uL High 3.5-11.3 [facility] Comment on above: Performed By: #### C DP, PT, PTT, CP, CRP, TSHX, SED ####[address] [address] Auto Diff Performed NOT REPORTED Normal [facility] Comment on above: Performed By: #### C DP, PT, PTT, CP, CRP, TSHX, SED ####[address] [address] Erythrocyte morphology NOT REPORTED Normal [facility] Comment on above: Performed By: #### C DP, PT, PTT, CP, CRP, TSHX, SED ####[address] [address] Platelets NOT REPORTED Normal [facility] Comment on above: Performed By: #### C DP, PT, PTT, CP, CRP, TSHX, SED ####[address] [place] [address] WBC Morphology NOT REPORTED Normal [facility] Comment on above: Performed By: #### C DP, PT, PTT, CP, CRP, TSHX, SED ####[address] [place] [address] CT HEAD WO CONTRASTon 2017 CT HEAD [...] (previously 13 mm).Interpreted by:JIHAN Penalozaigned by:Quintin Byrnes MD01/23/18Final result Normal [facility] Cult,Urineon 01-23-2018 Cult,Urine Specimen Description .CATHETERIZED URINE WOODS FIRST INSERTION Special Requests NOT REPORTED Culture NO GROWTH Report Status FINAL 01/23/2018 Normal [facility] Comment on above: Performed By: #### C DP, PT, PTT, CP, CRP, TSHX, SED ####[facility] [address] [place] [address] History and Physicalon 01-23 HIM IP Note OR Billet Worker Normal [facility] MRSA, DNA, Nasalon 8 MRSA, DNA, Nasal NEGATIVE: MRSA DNA n ot detected by nucleic acid amplification. Normal NMRSAA [facility] Comment on above: Result Comment: Resu lts should be used as an adjunct to nosocomial control efforts to identify patients needing enhanced precautions.The test is not intended to identify patients with staphylococcal infections. Results should not be used to guide or monitor treatment for MRSA infections.[address] [id number] [phone] Performed By: #### C DP, PT, PTT, CP, CRP, TSHX, SED ####[address] [id number] Plan of Careon 01-23-2018 HIM IP Note OR Billet Worker Normal [facility] HIM IP Note OR Billet Worker Normal [facility] Progress Noteon 01-23-2018 HIM IP Note OR Billet Worker Normal [facility] HIM IP Note OR Billet Worker Normal [facility] HIM IP Note OR Billet Worker Normal [facility] HIM IP Note OR Billet Worker Normal [facility] HIM IP Note OR Billet Worker Normal [facility] HIM IP Note OR Billet Worker Normal [facility] CTA HEAD W CONTRASTon 2017 CTA [...] in effacement of the left lateral ventricleand [id number] shift of 9 mm.No evidence of aneurysm or arteriovenous malformation.IMPRESSION: Left cavernous carotid moderate stenosis.No evidence of aneurysm or arteriovenous malformationMixed density left cerebral convexity subdural collection with 9 mm midlineshift.Interpreted by:JIHAN Fowlerigned by:Amrita Nieves MD01/22/18Edited Result - FINAL Normal [facility] MRSA, DNA, Nasalon 8 Specimen Description .NASAL SWAB Normal [facility] Comment on above: Performed By: #### C DP, PT, PTT, CP, CRP, TSHX, SED ####[place] [place] [address] Op Noteon 01-22-2018 HIM IP Note OR Billet Worker Normal [facility] Plan of Careon 01-22-2018 HIM IP Note OR Billet Worker Normal [facility] HIM IP Note OR Billet Worker Normal [facility] Progress Noteon 01-22-2018 HIM IP Note OR Billet Worker Normal [facility] HIM IP Note OR Billet Worker Normal [facility] HIM IP Note OR Billet Worker Normal [facility] HIM IP Note OR Billet Worker Normal [facility] HIM IP Note OR Billet Worker Normal [facility] HIM IP Note OR Billet Worker Normal [facility] HIM IP Note OR Billet Worker Normal [facility] APTTon 01-21-2018 aPTT 23.4 s Normal 20.5-30.5 [facility] Comment on above: Result Comment: [address] [address] Performed By: #### C DP, PT, PTT, CP, CRP, TSHX, SED ####[address] [address] C-Reactive Proteinon 018 C reactive protein (CRP) 3.0 mg/L Normal 0.0-5.0 [facility] Comment on above: Result Comment: [address] [address] Performed By: #### C DP, PT, PTT, CP, CRP, TSHX, SED ####[address] [address] CBC with Diffon 01-21-2018 Abs. Basophil 0.09 k/uL Normal 0.00-0.20 [facility] Comment on above: Performed By: #### C DP, PT, PTT, CP, CRP, TSHX, SED ####[address] [address] Abs.Neutrophil (Seg) 3.58 k/uL Normal 1.50-8.10 [facility] Comment on above: Performed By: #### C DP, PT, PTT, CP, CRP, TSHX, SED ####[address] [address] Basophils/100 WBC Auto (Bld) 1 % Normal 0-2 [facility] Comment on above: Performed By: #### C DP, PT, PTT, CP, CRP, TSHX, SED ####[address] [address] Eosinophils 0.84 10*3/uL High 0.00-0.44 [facility] Comment on above: Performed By: #### C DP, PT, PTT, CP, CRP, TSHX, SED ####[address] [address] Eosinophils/100 leukocytes 10 % High 1-4 [facility] Comment on above: Performed By: #### C DP, PT, PTT, CP, CRP, TSHX, SED ####[address] [address] Erythrocyte distribution width Auto Ratio (RBC) 12.3 % Normal 11.8-14.4 [facility] Comment on above: Performed By: #### C DP, PT, PTT, CP, CRP, TSHX, SED ####[address] [address] Erythrocytes (RBC) 0.0 per 100 WBC Normal 0.0 M [facility] Comment on above: Performed By: #### C DP, PT, PTT, CP, CRP, TSHX, SED ####[address] [address] Erythrocytes (RBC) 4.72 10*6/uL Normal 4.21-5.77 [facility] Comment on above: Performed By: #### C DP, PT, PTT, CP, CRP, TSHX, SED ####[address] [address] Granulocytes/100 WBC (Bld) 0.03 k/uL Normal 0.00-0.30 [facility] Comment on above: Result Comment: [address] [place] [address] Performed By: #### C DP, PT, PTT, CP, CRP, TSHX, SED ####[address] [address] Hematocrit (HCT) 42.6 % Normal 40.7-50.3 [facility] Comment on above: Performed By: #### C DP, PT, PTT, CP, CRP, TSHX, SED ####[address] [address] Hemoglobin mass conc (Bld) 13.7 g/dL Normal 13.0-17.0 [facility] Comment on above: Performed By: #### C DP, PT, PTT, CP, CRP, TSHX, SED ####[address] [address] Immature granulocytes #/vol (Bld) 0 % Normal 0 [facility] Comment on above: Performed By: #### C DP, PT, PTT, CP, CRP, TSHX, SED ####[address] [address] Lymphocytes 2.95 10*3/uL Normal 1.10-3.70 [facility] Comment on above: Performed By: #### C DP, PT, PTT, CP, CRP, TSHX, SED ####[address] [address] Lymphocytes/100 leukocytes 36 % Normal 24-43 [facility] Comment on above: Performed By: #### C DP, PT, PTT, CP, CRP, TSHX, SED ####[address] [address] MCH 29.0 pg Normal 25.2-33.5 [facility] Comment on above: Performed By: #### C DP, PT, PTT, CP, CRP, TSHX, SED ####[address] [address] MCHC mass conc (RBC) 32.2 g/dL Normal 28.4-34.8 [facility] Comment on above: Performed By: #### C DP, PT, PTT, CP, CRP, TSHX, SED ####[address] [address] MCV 90.3 fL Normal 82.6-102.9 [facility] Comment on above: Performed By: #### C DP, PT, PTT, CP, CRP, TSHX, SED ####[address] [address] Monocytes 0.71 10*3/uL Normal 0.10-1.20 [facility] Comment on above: Performed By: #### C DP, PT, PTT, CP, CRP, TSHX, SED ####[address] [address] Monocytes/100 leukocytes 9 % Normal 3-12 [facility] Comment on above: Performed By: #### C DP, PT, PTT, CP, CRP, TSHX, SED ####[address] [address] Neutrophil (Seg) 44 % Normal 36-65 [facility] Comment on above: Performed By: #### C DP, PT, PTT, CP, CRP, TSHX, SED ####[address] [address] Platelet mean volume (PMV) 10.3 fL Normal 8.1-13.5 [facility] Comment on above: Performed By: #### C DP, PT, PTT, CP, CRP, TSHX, SED ####[address] [address] Platelets 243 10*3/uL Normal 138-453 [facility] Comment on above: Performed By: #### C DP, PT, PTT, CP, CRP, TSHX, SED ####[place] [id number] WBC (Leukocytes) 8.2 10*3/uL Normal 3.5-11.3 [facility] Comment on above: Performed By: #### C DP, PT, PTT, CP, CRP, TSHX, SED ####[address] [address] Auto Diff Performed NOT REPORTED Normal [facility] Comment on above: Performed By: #### C DP, PT, PTT, CP, CRP, TSHX, SED ####[address] [address] Erythrocyte morphology NOT REPORTED Normal [facility] Comment on above: Performed By: #### C DP, PT, PTT, CP, CRP, TSHX, SED ####[address] [address] Platelets NOT REPORTED Normal [facility] Comment on above: Performed By: #### C DP, PT, PTT, CP, CRP, TSHX, SED ####[address] [address] WBC Morphology NOT REPORTED Normal [facility] Comment on above: Performed By: #### C DP, PT, PTT, CP, CRP, TSHX, SED ####[address] [address] Comp Metabolic Profon 2017 (cont.) Normal [facility] Comment on above: Result Comment: Aver age GFR for 60-69 years old: 85 mL/min/1.73sq mChronic Kidney Disease: <60 mL/min/1.73sq mKidney failure: <15 mL/min/1.73sq meGFR calculated using average adult body mass. Additional eGFR calculator available at:http://www.[employer]com/multiple_crcl_2012.htm[place] [address] [place] [address] Performed By: #### C DP, PT, PTT, CP, CRP, TSHX, SED ####[address] [address] Alanine aminotransferase (ALT) 26 U/L Normal 5-41 [facility] Comment on above: Performed By: #### C DP, PT, PTT, CP, CRP, TSHX, SED ####[address] [address] Albumin 4.2 g/dL Normal 3.5-5.2 [facility] Comment on above: Performed By: #### C DP, PT, PTT, CP, CRP, TSHX, SED ####[address] [address] Albumin/Globulin Ratio 1.6 {ratio} Normal 1.0-2.5 [facility] Comment on above: Performed By: #### C DP, PT, PTT, CP, CRP, TSHX, SED ####[address] [address] Alkaline Phos 57 U/L Normal 40-129 [facility] Comment on above: Performed By: #### C DP, PT, PTT, CP, CRP, TSHX, SED ####[address] [address] Anion gap 10 mmol/L Normal 9-17 [facility] Comment on above: Performed By: #### C DP, PT, PTT, CP, CRP, TSHX, SED ####[address] [address] Aspartate aminotransferase (AST) 16 U/L Normal <40 [facility] Comment on above: Performed By: #### C DP, PT, PTT, CP, CRP, TSHX, SED ####[address] [address] Bilirubin Ql (U) 0.62 mg/dL Normal 0.3-1.2 [facility] Comment on above: Performed By: #### C DP, PT, PTT, CP, CRP, TSHX, SED ####[address] [address] Calcium 8.8 mg/dL Normal 8.6-10.4 [facility] Comment on above: Performed By: #### C DP, PT, PTT, CP, CRP, TSHX, SED ####[address] [address] Chloride 107 mmol/L Normal 98-107 [facility] Comment on above: Performed By: #### C DP, PT, PTT, CP, CRP, TSHX, SED ####[address] [address] CO2 21 mmol/L Normal 20-31 [facility] Comment on above: Performed By: #### C DP, PT, PTT, CP, CRP, TSHX, SED ####[address] [address] Creatinine 0.57 mg/dL Low 0.70-1.20 [facility] Comment on above: Performed By: #### C DP, PT, PTT, CP, CRP, TSHX, SED ####[address] [address] eGFR (non-black) mL/min/{1.73_m2} Normal >60 [facility] Comment on above: Performed By: #### C DP, PT, PTT, CP, CRP, TSHX, SED ####[address] [address] Glucose mass conc 99 mg/dL Normal 70-99 [facility] Comment on above: Performed By: #### C DP, PT, PTT, CP, CRP, TSHX, SED ####[address] [address] Potassium molar conc 3.7 mmol/L Normal 3.7-5.3 [facility] Comment on above: Performed By: #### C DP, PT, PTT, CP, CRP, TSHX, SED ####[address] [address] Protein 6.9 g/dL Normal 6.4-8.3 [facility] Comment on above: Performed By: #### C DP, PT, PTT, CP, CRP, TSHX, SED ####[address] [address] Sodium 138 mmol/L Normal 135-144 [facility] Comment on above: Performed By: #### C DP, PT, PTT, CP, CRP, TSHX, SED ####[address] [address] Urea nitrogen 14 mg/dL Normal 8-23 [facility] Comment on above: Performed By: #### C DP, PT, PTT, CP, CRP, TSHX, SED ####[address] [address] BUN/CRE Ratio NOT REPORTED Normal 9- [facility] Comment on above: Performed By: #### C DP, PT, PTT, CP, CRP, TSHX, SED ####[address] [address] Staging: NOT REPORTED Normal [facility] Comment on above: Performed By: #### C DP, PT, PTT, CP, CRP, TSHX, SED ####[address] [address] Consulton 01-21-2018 HIM IP Note OR Billet Worker Normal [facility] HIM IP Note OR Billet Worker Normal [facility] ED Noteon 01-21-2018 HIM IP Note OR Billet Worker Normal [facility] Fibrinogenon 01-21-2018 Fibrinogen 421 mg/dL High 140-420 [facility] Comment on above: Result Comment: [address] [address] Performed By: #### C DP, PT, PTT, CP, CRP, TSHX, SED ####[address] [address] History and Physicalon 01-21 HIM IP Note OR Billet Worker Normal [facility] PSA, [employer] 01-21-2018 Prostatic Spec. Ag <0.01 Normal <4.1 [facility] Comment on above: Result Comment: The [employer] ECLIA assay is used. Results obtained with different assay methods cannot be used interchangeably.[address] [address] Performed By: #### C DP, PT, PTT, CP, CRP, TSHX, SED ####[address] [address] PTon 01-21-2018 INR Coag RelTime (PPP) 1.0 {INR} Normal [facility] Comment on above: Result Comment: Ther apeutic Range: Moderate Anticoagulant Intensity: INR = 2.0-3.0 High Anticoagulant Intensity: INR = 2.5-3.[address] [address] Performed By: #### C DP, PT, PTT, CP, CRP, TSHX, SED ####[address] [address] Prothrombin time (PT) Coag time (PPP) 10.4 s Normal 9.0-12.0 [facility] Comment on above: Performed By: #### C DP, PT, PTT, CP, CRP, TSHX, SED ####[address] [address] Plan of Careon 01-21-2018 HIM IP Note OR Billet Worker Normal [facility] Platelet Functionon 01-22-20 18 Collagen/ADP 77 sec Normal 67-112 [facility] Comment on above: Performed By: #### P FA ####[address] [address] Collagen/EPI 117 sec Normal 85-172 [facility] Comment on above: Performed By: #### P FA ####[address] [address] Interpretation Normal platelet func tion. If patient clinical history/Physical examination is Normal [facility] Comment on above: Result Comment: posi tive for a bleeding diathesis, recommend repeat testing and/or additional primary hemostasis and/or coagulation studies.PFA results on patients treated with Plavix (clopidogrel) have not been established.[facility] [place] [address] [place] [address] Performed By: #### P FA ####[address] [address] Progress Noteon 01-21-2018 HIM IP Note OR Billet Worker Normal [facility] Sedimentation Rateon 018 Sedimentation Rate 7 mm Normal 0-10 [facility] Comment on above: Result Comment: [facility] [address] [place] [address] Performed By: #### C DP, PT, PTT, CP, CRP, TSHX, SED ####[address] [address] TSH w/reflex to FT4on 2017 Thyroid stimulating hormone (TSH) 4.56 m[IU]/L Normal 0.30-5.00 [facility] Comment on above: Result Comment: [facility] [address] [place] [address] Performed By: #### C DP, PT, PTT, CP, CRP, TSHX, SED ####[address] [address] Thrombin Clot Timeon 018 Thrombin Clot Time 20.7 sec High 16.4-20.0 [facility] Comment on above: Result Comment: [facility] [address] [place], [place] [id number] [phone] Performed By: #### C DP, PT, PTT, CP, CRP, TSHX, SED ####[facility] [id number] [place] [address] ED Provider Noteon 8 HIM IP Note OR Billet Worker Normal [facility] Vital Signs Date Time Vital Sign Value Performing Clinician Facility 05-20-2024 09:05-0400 Body weight 79.88 kg [facility] 05-20-2024 09:05-0400 Diastolic blood pressure 84 mm[Hg] [facility] 05-20-2024 09:05-0400 Heart rate 52 /min [facility] 05-20-2024 09:05-0400 Respiratory rate 14 /min [facility] 05-20-2024 09:05-0400 SaO2% (BldA) [Mass fraction] 96 % [facility] 05-20-2024 09:05-0400 Systolic blood pressure 138 mm[Hg] [facility] 11-15-2023 09:05-0400 Body height 175.26 cm [facility] 11-15-2023 09:05-0400 Body mass index (BMI) [Ratio] 25.4 kg/m2 [facility] 11-15-2023 09:05-0400 Body weight 78.13 kg [facility] 11-15-2023 09:05-0400 Diastolic blood pressure 81 mm[Hg] [facility] 11-15-2023 09:05-0400 Heart rate 56 /min [facility] 11-15-2023 09:05-0400 Respiratory rate 12 /min [facility] 11-15-2023 09:05-0400 Systolic blood pressure 145 mm[Hg] [facility] 05-17-2023 10:00-0400 Body height 175.26 cm Juvenal Ball Other [facility] 05-17-2023 10:00-0400 Body mass index (BMI) [Ratio] 26.4 kg/m2 Juvenal Ball Other [facility] Other 05-17-2023 10:00-0400 Body weight 81.1 kg Juvenal Ball Other [facility] Other 05-17-2023 10:00-0400 Diastolic blood pressure 81 mm[Hg] Juvenal Ball Other [facility] Other 05-17-2023 10:00-0400 Respiratory rate 12 /min Juvenal Ball Other [facility] Other 05-17-2023 10:00-0400 Systolic blood pressure 136 mm[Hg] Juvenal Ball Other [facility] Other 11-06-2022 10:00-0400 Body height 175.26 cm Juvenal Ball Other [facility] Other 11-06-2022 10:00-0400 Body mass index (BMI) [Ratio] 26.37 kg/m2 Juvenal Ball Other [facility] Other 11-06-2022 10:00-0400 Body weight 81.01 kg Juvenal Ball Other [facility] Other 11-06-2022 10:00-0400 Diastolic blood pressure 81 mm[Hg] Juvenal Ball Other [facility] Other 11-06-2022 10:00-0400 Respiratory rate 12 /min Juvenal Ball Other [facility] Other 11-06-2022 10:00-0400 Systolic blood pressure 122 mm[Hg] Juvenal Ball Other [facility] Other 10-04-2022 13:40-0500 Blood Pressure Location ROHINI FRY [facility] 10-04-2022 13:40-0500 Diastolic blood pressure 82 mm[Hg] ROHINI FRY [facility] 10-04-2022 13:40-0500 Heart rate 72 /min ROHINI FRY [facility] 10-04-2022 13:40-0500 Systolic blood pressure 138 mm[Hg] ROHINI FRY [facility] Encounters Encounter Date Encounter Type Care Provider Facility Start: 05-20-2024 End: 05-20-2024 ambulatory [facility] Work Phone: Start: 05-20-2024 End: 05-20-2024 Patient encounter procedure [facility] Work Phone: Start: 12-24-2023 End: 12-25-2023 ambulatory VELASQUEZ B APLING Not Available Start: 11-15-2023 End: 11-15-2023 ambulatory [facility] Work Phone: Start: 11-15-2023 End: 11-15-2023 Patient encounter procedure [facility] Work Phone: Start: 10-30-2023 End: 10-31-2023 ambulatory PA-C ROHINI FRY Facility:[facility] Start: 10-24-2023 Non-patient / Non-visit [facility] [employer] Work Phone: Start: 05-17-2023 End: 05-17-2023 ambulatory Juvenal Davila Other [facility] Other Start: 05-17-2023 Office outpatient vi sit 25 minutes Juvenal Davila [facility] Start: 05-14-2023 End: 05-14-2023 ambulatory Juvenal Davila Other [facility] Other Start: 05-14-2023 Telephone encounter Juvenal Davila ABDOULAYE Reyes [facility] Start: 04-24-2023 End: 04-24-2023 ambulatory Juvenal Davila Other [facility] Other Start: 04-24-2023 Telephone encounter Juvenal Davila ABDOULAYE Reyes [facility] Start: 02-19-2023 End: 02-19-2023 ambulatory Juvenal Davila Other [facility] Other Start: 02-19-2023 Telephone encounter Juvenal Davila ABDOULAYE Reyes [facility] Start: 11-06-2022 Patient encounter procedure Juvenal GARDNER [facility] Start: 11-06-2022 End: 11-07-[address] JUVENAL DAVILA Facility:[facility] Start: 10-04-2022 End: 10-04-2022 Patient encounter procedure ROHINI FRY [facility] Start: 09-27-2022 End: 09-28-[address] DOCTOR PETIT Facility:[facility] Start: 11-04-2021 Adult health examination Juvenal Davila Other [facility] Other Start: 02-06-2018 End: 02-09-2018 Ambulatory JUVENAL DAVILA [facility] Start: 01-20-2018 End: 01-24-2018 Evaluation and management of inpatient JUVENAL DAVILA [facility] Procedures Date Procedure Procedure Detail Performing Clinician Start: 09-27-[address] ROSA GARCIA ALICIA Comment on above: Performed By: #### P SAD #### [facility] [address] [place] [address] Dr. Serafin Bloom Start: 07-27-2021 Colonoscopy ROHINI [...] JUVENAL BALL Start: 01-22-2018 TELEMETRY MONITORING BE BOB BALL Start: 01-22-2018 FULL CODE JUVENAL Ryder ALL Start: 01-22-2018 INITIATE OXYGEN THER APY PROTOCOL JUVENAL DAVILA Start: 01-22-2018 VITAL SIGNS JUVENAL Ryder ALL Start: 01-22-2018 WOUND CARE JUVENAL Ryder ALL Start: 01-22-2018 TRANSFER PATIENT ROSA IN [place] Start: 01-22-2018 Culture bacterial quanttative colony count urine JUVENAL BALL Start: 01-22-2018 EKG 12-LEAD JUVENAL Ryder ALL Start: 01-21-2018 FIBRINOGEN JUVENAL Ryder ALL Start: 01-21-2018 PSA, DIAGNOSTIC BENJAMI N BALL Start: 01-21-2018 THROMBIN CLOT TIME TOMMY OWENS BALL Start: 01-21-2018 OBTAIN MEDICAL RECORDS JUVENAL DAVILA Start: 01-21-2018 IP CONSULT TO HEM/ONC Aleksye ARANA BALL Start: 01-21-2018 NOTIFY PHYSICIAN (SPECIFY) JUVENAL DAVILA Start: 01-21-2018 PLACE INTERMITTENT P NEUMATIC COMPRESSION DEVICE JUVENAL DAVILA Start: 01-21-2018 REASON FOR NO CHEMIC AL VTE PROPHYLAXIS JUVENAL DAVILA Start: 01-21-2018 TELEMETRY MONITORING BE BOB BALL Start: 01-21-2018 Ct angiography head w/contrast/noncontrast JUVENAL DAVILA Start: 01-21-2018 PLATELET FUNCTION TEST JUVENAL DAVILA Start: 01-21-2018 PREVIOUS SPECIMEN SOCRATES MIN BALL Start: 01-21-2018 PATIENT STATUS (FROM ED OR OR/PROCEDURAL) JUVENAL DAVILA Start: 01-21-2018 Blood count complete auto&auto difrntl wbc JUVENAL BALL Start: 01-21-2018 C-reactive protein TOMMY OWENS BALL Start: 01-21-2018 Comprehensive metabo lic panel JUVENAL DAVILA Start: 01-21-2018 Prothrombin time ROSA IN BALL Start: 01-21-2018 SEDIMENTATION RATE TOMMY OWENS BALL Start: 01-21-2018 Thromboplastin time partial plasma/whole blood JUVENAL BALL Start: 01-21-2018 TSH WITH REFLEX SARANYA N BALL Start: 01-21-2018 IP CONSULT TO [facility] JUVENAL DAVILA Start: 10-18-2016 Radical [...] lic 2000 panel - Serum or Plasma [facility] Immunizations Immunization Date Immunization Notes Care Provider Fa cility 05-20-2024 influenza, high dose seasonal, preservative-free [facility] 05-17-2023 influenza virus vaccine, unspecified formulation [facility] 05-17-2023 influenza, high dose seasonal, preservative-free Juvenal Davila Other [facility] Other 05-22-2022 influenza virus vaccine, split virus (incl. purified surface antigen) Juvenal Davila Other [facility] Other 05-22-2022 influenza virus vaccine, unspecified formulation ROHINI FRY [facility] 05-22-2022 influenza, high dose seasonal, preservative-free Juvenal Davila Other [facility] Other 02-22-2022 SARS-CoV-2 (COVID-19 ) mRNA-0313 vaccine ROHINI FRY [facility] Comment on above: Result Comment: 2022: [id number] 07-11-2021 SARS-CoV-2 (COVID-19 ) mRNA-1273 vaccine ROHINI LISANDRA [facility] 06-27-2021 influenza virus vaccine, unspecified formulation ROHINI LISANDRA [facility] 06-23-2021 influenza virus vaccine, split virus (incl. purified surface antigen) Juvenal Davila Other [facility] Other 06-23-2021 influenza virus vaccine, unspecified formulation [facility] 05-27-2021 SARS-CoV-2 (COVID-19 ) Ad26 vaccine, recombinant ROHINI LISANDRA [facility] 01-21-2021 pneumococcal polysaccharide vaccine, 23 valent ROHINI LISANDRA [facility] 11-25-2020 SARS-CoV-2 (COVID-19 ) Ad26 vaccine, recombinant ROHINI LISANDRA [facility] 11-09-2020 SARS-CoV-2 (COVID-19 ) mRNA-1273 vaccine ROHINI LISANDRA [facility] 10-25-2020 SARS-CoV-2 (COVID-19 ) Ad26 vaccine, recombinant ROHINI LISANDRA [facility] 10-14-2020 SARS-CoV-2 (COVID-19 ) mRNA-1273 vaccine ROHINI LISANDRA [facility] 07-12-2020 influenza virus vaccine, unspecified formulation ROHINI LISANDRA [facility] 06-01-2020 influenza virus vaccine, split virus (incl. purified surface antigen) Juvenal Davila Other [facility] Other 06-01-2020 influenza virus vaccine, unspecified formulation [facility] 02-20-2020 pneumococcal conjuga te vaccine, 13 valent Juvenal Davila Other [facility] 07-08-2019 influenza virus vaccine, split virus (incl. purified surface antigen) Juvenal Davila Other [facility] Other 07-08-2019 influenza virus vaccine, unspecified formulation [facility] 06-05-2018 influenza virus vaccine, split virus (incl. purified surface antigen) Juvenal aDvila Other [facility] Other 06-05-2018 influenza virus vaccine, unspecified formulation [facility] 05-09-2016 tetanus and diphther ia toxoids, adsorbed, preservative free, for adult use (5 Lf of tetanus toxoid and 2 Lf of diphtheria toxoid) Juvenal Davila Other [facility] 05-06-2015 influenza virus vaccine, split virus (incl. purified surface antigen) Juvenal Davila Other [facility] Other 05-06-2015 influenza virus vaccine, unspecified formulation [facility] Payers Date Payer Category Payer Medicare [id number] 1961 Unknown [id number] 1955 Unknown [id number] 2.16.84 [id number] 1955 Unknown [id number] 2.16.84 [id number] 1955 Unknown [id number] 2.16.8 [id number] 1955 Unknown [id number] 2.16.84 [id number] 1955 Unknown [id number] 2.16.84 [id number] Medicare [id number]. [id number] Social History Date Type Detail Facility Start: 09-06-2021 End: 11-15-2023 Tobacco smoking status Never smoked tobacco (finding) [facility] Tobacco smoking status Never [facility] Sex Assigned At Male [facility] Start: 1955 Sex Assigned At Male Enrique [facility] Functional Status Date Assessment Result Facility 10-04-2022 Functional Status N/A [facility] Clinical Notes 10-04-2022 to 05-17-2023 Note Date & Type Note Facility 05-17-2023 Evaluation note Encounter Date Diagnosis Assessment Notes Apr, Nonrheumatic aortic (valve) stenosis (ICD-10 - I35.0) s/p SAVR No longer f/u with [facility]. Denies CP, palpitations or lightheadedness Denies SOB, [...] 13gms No s/s GIB Last colonoscopy 2020 [facility] Other 08-29-2023 Evaluation note* Encounter Date Diagnosis Assessment Notes Treatment Notes Treatment Clinical Notes Mar, Acute blood loss anemia (ICD-10 - D62) [facility] Other 03-13-2023 Evaluation note* Encounter Date Diagnosis Assessment Notes Treatment Notes Treatment Clinical Notes Oct, Nonrheumatic aortic (valve) stenosis (ICD-10 [...] High risk medication use (ICD-10 - Z79.899) [facility] Other 02-08-2023 Hospital Discharge instructions Patient Education 10/04/2022 14:12:30 Cancer Screening [...] very early stages, before it spreads and becomesharder to treat and before you would start [...] exam in which a health care provider usesa gloved finger to check prostate size (digital [...] a flexible tube with a small camera isinserted into the rectum. CT colonography. This test uses X-rays and a contrast dye to check the colon for polyps. If a polypis found, you may need to have a [...] if anything looks unusual. Men with a wnwruc-zzwo-[id number] risk for skin cancer may want to see a skin peeling machine operator (gripper machine operator) for an annual body check. Where to find more information National Cancer [place]: https://www.cancer.gov/about-cancer/screening Centers for Disease Control and Prevention: https://www.cdc.gov/cancer/dcpc/prevention/screening.htm [employer] [employer]: https://www.cancer.org/latest-news/3-ojkxlp-watlemzfc-xqwdd-hlu-qvr.html Contact a health care provider if: You [...] 05/10/2017 Document Revised: 05/02/2019 Document Reviewed: 05/10/2017 [employer] Patient Education [employer] Follow Up Care 09/06/2021 09:13:29 With:ROHINI FRY PA-C, URL Address: [address] [place] [address]. [place] [address] When: Unknown [facility] evaluation + Plan note Future Appointments Appointment Date:10/09/2023 08:30:00 AM Scheduled Provider:ROHINI FRY PA-C Location:[facility] Appointment Type:URO Office Visit Diagnostic Tests Pending * PSA Total 10/04/22 [facility] evalfymlry noteNo [facility] Other Evaluation note* Diagnosis Onset Date Resolution Status Hypercholesterolemia acute Hypertension acute IFG (impaired fasting glucose) acute Nonrheumatic aortic (valve) stenosis acute Prostate cancer acute Medicare annual wellness visit, subsequent noneactive [facility] Work Phone: Evaluation note* Diagnosis Onset Date Resolution Status Anemia acute Hypercholesterolemia acute Hypertension acute IFG (impaired fasting glucose) acute Nonrheumatic aortic (valve) stenosis acute Prostate cancer acute [facility] Work Phone: History general Narrative - Reported* Type Description Date Medical History HISTORY OF AORTIC VA LVE [...] History COLONOSCOPY 2020 Surgical History REPLACEMENT OF AORTIC VALVE - B IOPROSTHETIC 2020 Surgical History LEFT HEART CARDIAC CATH 2019 Surgical History ORIF LEFT RADIUS/HUMERUS 1992 Surgical History CYSTECTOMY NECK 1993 Surgical History CRANIOTOMY 2018 Hospitalization History SEE SURGICAL HX [facility] Other Hospital course Narrative No data available for this section [facility] progress note No data available for this section [facility] Summary Purpose Family History No Family History [...] Prostate cancer Medicare annual wellness visit, subsequent Chief Complaint 6 month follow up Reason for Visit Anemia Hypercholesterolemia Hypertension IFG (impaired fasting glucose) Nonrheumatic aortic (valve) stenosis Prostate cancer Additional Source Comments (unrecognized sect ion and content) No Status Records FoundNo Status Records FoundNo Status Records FoundNo Status Records Found INFORMATION SOURCE (unrecogn ized section and content) DATE CREATED AUTHOR 02/11/2018 [facility] DATE CREATED AUTHOR AUTHOR'S ORGANIZ ATION 11/13/2022 [facility] DATE CREATED AUTHOR AUTHOR'S ORGANIZ ATION 11/03/2023 [facility] DATE CREATED AUTHOR AUTHOR'S ORGANIZ ATION 12/29/2023 [facility] EPIC Patient Care team informatio n (unrecognized section and content) Team Status: Active Member Role Status Dates Juvenal Davila DO Primary Care Provider Active Team Status: Inactive Member Role Status Dates Juvenal Ball , DO Primary Care Provide r, Attending Provider Active Start: May 20, 2024 End: May 20, 2024 Team Status: Active Member Role Status Brayan Davila , DO Primary Care Provider Active Team Status: Active Member Role Status Brayan Davila , DO Primary Care Provide r, Attending Provider Active Start: October 24, 2023 Team Status: Inactive Member Role Status Brayan Davila , DO Primary Care Provide r, Attending Provider Active Start: November 15, 2023 End: November 15, 2023 Team Status: Inactive Member Role Status Brayan Davila , DO Primary Care Provide r, Attending Provider Active Start: May 20, 2024 End: May 20, 2024 REASON FOR VISIT (unrecogniz ed section and [...] BE BASED ON THE PRIMARY CLINICAL RECORDS. [employer] provides no warranty or guarantee of the accuracy or completeness of information in this document.
[2024-05-22 07:40] LABS: Basophils Absolute Auto 0.1 10^3/uL (0.0-0.1); Eosinophils Absolute Auto 0.3 10^3/uL (0.0-0.7); Eosinophils Percent Auto 5.9 % (0.9-7.0); Hematocrit 41.7 % (42.0-54.0); Hemoglobin 13.7 g/dL (14.0-18.0); Immature Granulocytes Abs Auto 0.01 10^3/uL (0.00-0.03); Immature Granulocytes Pct Auto 0.2 % (0.0-0.5); Lymphocytes Absolute Auto 1.7 10^3/uL (1.2-3.8); Lymphocytes Percent Auto 34.6 % (20.5-60.0); Mean Corpuscular HGB Conc 32.9 g/dL (29.9-35.2); Mean Corpuscular Hemoglobin 29.1 pg (25.9-34.0); Mean Corpuscular Volume 88.7 fL (80.0-94.0); Mean Platelet Volume 10.4 fL (9.5-13.5); Monocytes Absolute Auto 0.6 10^3/uL (0.3-0.8); Monocytes Percent Auto 11.9 % (1.7-12.0); Neutrophils Absolute Auto 2.3 10^3/uL (1.4-6.5); Neutrophils Percent Auto 46.4 % (43.0-75.0); Platelet Count 198 10^3/uL (150-450); Red Cell Distribution Width 12.1 % (11.0-15.0); White Blood Count 4.9 10^3/uL (4.0-11.0)
== END 2024-05-22 07:00 | disposition home or self-care (01) ==
LOC: LAB 07:00
PROVIDERS: PCP Internal Medicine; Visit Provider Internal Medicine
DX: D64.9 Anemia, unspecified (principal)
CPT/HCPCS: 36415; 85025

== ENCOUNTER 2024-11-20 06:51 | Outpatient (OUT) | payer MEDICARE, SELFPAY ==
--- OUTSIDE RECORDS SUMMARY | 2024-11-20 06:55 | XMS_ITS | CCD ---
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 Name Role Phone JUVENAL DAVILA Unavailable Unavailable AHMED, MOHJUAN S Unavailable Unavailable BOMMANA, VENUGOPALA Unavailable Unavailable [...] or physicia Propensity to adverse reactions Comment:Done [employer] Other (1 source) No Known Medication Allergies; Translations: [No Known Medication Allergies] Propensity to adverse reactions (disorder) [facility] Repository Medications Current Medications Medication Drug Class(es) Dates Sig (Normalized) Sig (Original) atorvastatin 40 mg oral tablet (10 sources) HMG-CoA Reductase Inhibitor Start: 02-07-2024 take 1 tablet by mouth once daily in the evening Atorvastatin 40 mg tablet Active 0 .ROUTE .COMPLEX 90 February 07, 2024 7:39am TAKE 1 TABLET BY MOUTH EVERY DAY IN THE EVENING Start: 11-14-2023 End: 02-07-2024 take 1 tablet by mouth once daily in the evening Atorvastatin 40 mg tablet Discontinued 40 MG PO Every evening November 14, 2023 12:00am February 07, 2024 7:39am take 1 tablet by kerrie th once daily in the evening Atorvastatin Calcium 40 MG TAKE 1 TABLET BY MOUTH EVERY DAY IN THE EVENING Active [id number] 0.3 ml EPINEPHrine 1 mg/ml auto-injector (8 sources) alpha-Adrenergic Agonist, beta-Adrenergic Agonist, Catecholamine Start: 11-14-2023 Epinephrine 0.3 mg/0.3 mL auto-injector Active IM November 14, 2023 12:00am INJECT 1 PEN NEEDED FOR BEE STING AFTER WHICH SHOULD BE EVALUATED IN ER EpiPen 2-Michael 0.3 MG/0.3ML as directed Injection Active 24 hr metoprolol succinate 25 mg extended release oral tablet (11 sources) beta-Adrenergic Stacia Start: 03-24-2024 take 1 tablet by mouth once daily Metoprolol Succinate 25 mg tablet extended release 24 hr Active 0 .ROUTE .COMPLEX March 24, 2024 10:06am TAKE 1 TABLET BY MOUTH EVERY DAY Start: 11-14-2023 End: 03-24-2024 take 1 tablet by mouth once daily Metoprolol Succinate 25 mg tablet extended release 24 hr Discontinued 25 MG PO Daily November 14, 2023 12:00am March 24, 2024 10:06am Start: 06-30-2021 take 1 mg by mouth once daily Metoprolol succinate 25 mg ER Tablet mg, Oral, Daily, Refills(s) 0 Start Date: 06/30/21 Status: Ordered take 1 tablet by kerrie once daily Metoprolol Succinate ER 25 MG TAKE 1 TABLET BY MOUTH EVERY DAY Active Completed/Discontinued Medications Medication Drug Class(es) Dates Sig (Normalized) Sig (Original) aspirin 81 mg delayed release oral tablet (13 sources) Platelet Aggregation Inhibitor, Nonsteroidal Anti-inflammatory Drug Start: 12-26-2023 End: 12-26-2023 take 1 tablet by mouth once daily Aspirin 81 mg tablet,delayed release (DR/EC) Discontinued 0 .ROUTE .COMPLEX December 26, 2023 1:14pm December 26, 2023 6:13pm TAKE 1 TABLET BY MOUTH EVERY DAY Start: 11-14-2023 End: 12-26-2023 take 1 tablet by mouth once daily Aspirin 81 mg tablet,delayed release (DR/EC) Active 81 MG PO Daily 90 December 26, 2023 6:13pm Start: 06-30-2021 take 1 mg by mouth once daily aspirin 81 mg Oral EC Tab mg tab(s), Oral, Daily, Refills(s) 0 Start Date: 06/30/21 Status: Ordered Nirmatrelvir-Ritonavir (Paxlovid) 300 mg (150 mg x 2)-100 mg tablets,dose pack (1 source) Start: 08-14-2024 End: 11-19-2024 Nirmatrelvir-Ritonavir (Paxlovid) 300 mg (150 mg x 2)-100 mg tablets,dose pack Discontinued 0 PO .COMPLEX 30 August 14, 2024 1:00am November 19, 2024 8:26am take TWO 150 mg tablets of nirmatrelvir with ONE 100 mg tablet of ritonavir twice daily for 5 days PO Problems Active Problems Problem Classification Problem Date Documented Date Episodic/Chronic Acute cerebrovascular disease (2 sources) Hematoma of subdural space of neuraxis; Translations: [Subdural hemorrhage] Onset: 01-31-2018 07-01-2021 Chronic Acute posthemorrhagic anemia (7 sources) Acute posthemorrhagic anemia; Translations: [Acute posthemorrhagic anemia] Episodic Allergic reactions (6 sources) Allergy to bee venom; Translations: [Bee allergy status] Episodic Cancer of prostate (15 sources) Malignant tumor of prostate; Translations: [Carcinoma of prostate] 05-16-2019 Chronic Comment on above: 2017- radical prosta tectomy Cancer of prostate (6 sources) Personal history of malignant neoplasm of prostate; Translations: [History of malignant neoplasm of prostate] Onset: 09-27-2022 Episodic Deficiency and other anemia (1 source) Other specified anemias Episodic Deficiency and other anemia (2 sources) Anemia; Translations: [Anemia, unspecified] 05-20-2024 Episodic Deficiency and other anemia (2 sources) Anemia, unspecified; Translations: [Anemia, unspecified] 05-20-2024 Episodic Diabetes mellitus without complication (17 sources) Impaired fasting glucose; Translations: [Impaired fasting glycemia] Onset: 11-13-2022 Episodic Disorders of lipid metabolism (20 sources) Hyperlipidemia; 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] Onset: 05-06-2015 07-02-2019 Chronic Essential hypertension (19 sources) Hypertensive disorder; Translations: [Essential (primary) hypertension] Onset: 11-13-2022 07-02-2019 Chronic Genitourinary symptoms and ill-defined conditions (1 source) Genuine stress incontinence 05-16-2019 Chronic Genitourinary symptoms and ill-defined conditions (2 sources) Increased frequency of urination; Translations: [Nocturia] 07-08-2019 Episodic Heart valve disorders (16 sources) Aortic valve stenosis; Translations: [Aortic valve disorder] 06-30-2021 Chronic Comment on above: SAVR 2020 Heart valve disorders (7 sources) Abnormal heart beat; Translations: [Other abnormalities of heart beat] Onset: 05-06-2015 11-14-2023 Episodic Hyperplasia of prostate (3 sources) Benign prostatic hyperplasia; Translations: [Nocturia due to benign prostatic hypertrophy] Onset: 05-06-2015 10-04-2022 Chronic Immunizations and screening for infectious disease (1 source) Vaccination given; Translations: [Encounter for immunization] Episodic Other aftercare (2 sources) Other care home (current) drug therapy; Translations: [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 DRUG THERAPY] Onset: 11-13-2022 Episodic Other aftercare (1 source) Long-term current use of drug therapy; Translations: [Other long term care administrator (current) drug therapy] Episodic Other and unspecified [...] colon] Episodic Other and unspecified benign neoplasm (3 sources) Adenomatous polyp of colon ; Translations: [Benign neoplasm of ascending colon] 11-14-2023 Episodic Comment on above: Colonoscopy 2020 Other circulatory disease (1 source) H/O: cardiovascular disease; Translations: [Personal history of other diseases of the circulatory system] Episodic Other diseases of bladder and urethra (1 source) Urethral spasm 05-16-2019 Episodic Other ear and sense organ disorders (1 source) Impacted cerumen; Translations: [Impacted cerumen, unspecified ear] 05-20-2024 Episodic Other fractures (1 source) Compression fracture of lumbar spine 07-02-2019 Episodic Other injuries and conditions due to external causes (1 source) History of fall; Translations: [History of falling] Episodic Other lower respiratory disease (1 source) Cough; Translations: [Cough] 08-14-2024 Episodic Other male genital disorders (1 source) [...] cough; Translations: [Other specified cough] Onset: 08-29-2018 Viral infection (1 source) Disease caused by 2019-nCoV; Translations: [COVID-19] 08-14-2024 Episodic Past or Other Problems Problem Classification Problem [...] Interpretation Reference Range Facility Screenson 11-02-2023 Screens [id number] Normal [facility] Patient Educationon 10-30-19 24 Patient Education Urology [...] these instructions at home: Medicines ? Take hquv-xht-zbidood and prescription medicines only as told by [...] include cig (more content not included)... Normal [facility] Provider Letteron 10-30-2023 Provider Letter (Inserted Image. Radha ble to display) JUVENAL DAVILA, [address] [place] [address] Re: RAMÓN ACUÑA Date of : [address] JENA CHA, RAMÓN GIBSON was evaluated at [facility] 10/09/2023 08:30:00 As this patient [...] Thanks! Provider Signature: Rohini Fry PA-C Physician Talent Management Manager [facility] [address] [place] [address] Normal [facility] Urology Office/Clinic Noteon 10-30-2023 Urology Office/Clinic [...] lymphadenectomy done 10/18/16. Path [place] 6 and [place] 7. Negative nodes and negative SV. UA [...] E&M of Est. Patient Low 20-29 Min 07046 2. 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 advises not bothersome today. does now wish to discuss tx options Ordered: E&M of Est. Patient Low 20-29 Min 00193 3. BMI 26.0-26.9,adult (Z68.26: Body mass index [BMI] 26.0-26.9, adult) healthy diet encouraged Ordered: Body Mass Index (BMI) documented 3008F E&M of Est. Patient Low 20-29 Min 68317 Orders: Current tobacco non-user 1036F Depression Screening Negative 3352F Influenza immunization status assessed 1030F Most recent diastolic blood pressure 80-89 mm Hg 3079F Patient screen for fall risk: no falls in last year or 1 fall with no injury in last year 1101F Systolic BP <130 mm Hg (Most Recent) 3074F Urnls Dip Stick Auto w/o Microscopy POC 73972 Follow-up With When Contact Information ROHINI FRY PA-C, URL Only if needed [address] [place] [address] [employer] (1) Additional Instructions: Patient Education Erectile Dysfunction [...] virus vaccine, inacti (more content not included)... [facility] Comment on above: Result Comment: Elec tronically Signed By: LISANDRA SPEAR, ROHINI Hoover\.br\Date and Time Signed: 10/30/23 12:29 EST Lab Reportson 10-25-2023 Lab Reports [id number] [facility] No Panel Informationon 10-24 Prostate Specific Antigen Total <0.13 ng/mL <=4.00 [facility] Provider Letteron 09-13-2023 Provider Letter (Inserted Image. Radha ble to display) September 13, 2023 [place] [address] : 1955 Dear Ramón , We have [...] [facility] [address], [place] [address] [facility] A1C with Estimated Average G luon 11-06-2022 A1C with Estimated Average Glu [employer] Other Basic Metabolic Panelon 10-25 Calcium [Mass/Vol] 9.2139052 mg/dL 8.5-10 .1 mg/dL [employer] Other CO2 [Moles/Vol] 27.90731970 mmol/L 21.0-3 2.0 mmol/L [employer] Other Creatinine [Mass/Vol] 0.22533377 mg/dL Critically low 0.70-1.30 mg/dL [employer] Other Potassium [Moles/Vol] 3.97337307 mmol/L 3.5-5.1 mmol/L [employer] Other Urea nitrogen [Mass/Vol] 11.9563756 mg/dL 7.0-18.0 mg/dL [employer] Other Basic Metabolic Panel see note [employer] Other Basic Metabolic Panel 142 mmol/L 136-145 mmol/L [employer] Other Basic Metabolic Panel 93 mg/dL 74-106 mg/dL [employer] Other Basic Metabolic Panel >60 mL/min/1.73m2 >=60 mL/min/1.73 m2 [employer] Other CBC AUTO DIFFon 11-06-2022 BASO # 0.1 103/ul Normal 0.0-0.1 [facility] Comment on above: Performed By: #### C BC #### [facility] [address] [place] [address] Dr. Serafin Bloom Basophils/100 WBC (Bld) 1.0 % Normal 0.2-2.0 [facility] Comment on above: Performed By: #### C BC #### [facility] [address] [place] [address] Dr. Serafin Bloom EO # 0.3 103/ul Normal 0.0-0.7 [facility] Comment on above: Performed By: #### C BC #### [facility] [address] [place] [address] Dr. Serafin Bloom Eosinophils/100 WBC (Bld) 4.7 % Normal 0.9-7.0 [facility] Comment on above: Performed By: #### C BC #### [facility] [address] [place] [address] Dr. Serafin Bloom Erythrocyte distribution width (RBC) [Ratio] 12.2 % Normal 11.0-15.0 [facility] Comment on above: Performed By: #### C BC #### [facility] [address] [place] [address] Dr. Serafin Bloom Hematocrit (Bld) [Volume fraction] 42.1 % Normal 42.0-54.0 [facility] Comment on above: Performed By: #### C BC #### [facility] [address] [place] [address] Dr. Serafin Bloom Hemoglobin (Bld) [Mass/Vol] 13.8 g/dL Critically low 14.0-18.0 [facility] Comment on above: Performed By: #### C BC #### [facility] [address] [place] [address] Dr. Serafin Bloom IG # 0.02 10e3/ul Normal 0.00-0.03 [facility] Comment on above: Performed By: #### C BC #### [facility] [address] [place] [address] Dr. Serafin Bloom IG % 0.3 % Normal 0.0-0.5 [facility] Comment on above: Performed By: #### C BC #### [facility] [address] [place] [address] Dr. Serafin Bloom LYMPH # 2.6 103/ul Normal 1.2-3.8 [facility] Comment on above: Performed By: #### C BC #### [facility] [address] [place] [address] Dr. Serafin Bloom Lymphocytes/100 WBC (Bld) 36.9 % Normal 20.5-60.0 [facility] Comment on above: Performed By: #### C BC #### [facility] [address] [place] [address] Dr. Serafin Bloom MANUAL DIFF REQ NO Normal [facility] Comment on above: Performed By: #### C BC #### [facility] [address] [address] [address] Serafin Bloom MCH (RBC) [Entitic mass] 29.1 pg Normal 25.9-34.0 [facility] Comment on above: Performed By: #### C BC #### [facility] [address] [place] [address] Dr. Serafin Bloom MCHC (RBC) [Mass/Vol] 32.8 g/dL Normal 29.9-35.2 [facility] Comment on above: Performed By: #### C BC #### [facility] [address] [place] [address] Dr. Serafin Bloom MCV (RBC) [Entitic vol] 88.6 fL Normal 80.0-94.0 [facility] Comment on above: Performed By: #### C BC #### [facility] [address] [place] [address] Dr. Serafin Bloom MONO # 0.7 103/ul Normal 0.3-0.8 [facility] Comment on above: Performed By: #### C BC #### [facility] [address] [place] [address] Dr. Serafin Bloom Monocytes/100 WBC (Bld) 9.4 % Normal 1.7-12.0 [facility] Comment on above: Performed By: #### C BC #### [facility] [address] [place] [address] Dr. Serafin Bloom NEUT # 3.3 103/ul Normal 1.4-6.5 [facility] Comment on above: Performed By: #### C BC #### [facility] [address] [place] [address] Dr. Serafin Bloom Neutrophils/100 WBC (Bld) 47.7 % Normal 43.0-75.0 [facility] Comment on above: Performed By: #### C BC #### [facility] [address] [place] [address] Dr. Serafin Bloom Platelet mean volume (Bld) [Entitic vol] 10.2 fL Normal 9.5-13.5 [facility] Comment on above: Performed By: #### C BC #### [facility] [address] [address] [address] Serafin Bloom PLT 192 103/ul Normal 150-450 [facility] Comment on above: Performed By: #### C BC #### [facility] [address] [place] [address] Dr. Serafin Bloom RBC 4.75 106/ul Normal 4.70-6.10 [facility] Comment on above: Performed By: #### C BC #### [facility] [address] [address] [address] Serafin Bloom WBC 7.0 103/ul Normal 4.0-11.0 [facility] Comment on above: Performed By: #### C BC #### [facility] [address] [place] [address] Dr. Serafin Bloom Complete Blood Count and Dif marisela 11-06-2022 Anisocytosis Ql (Bld) [facility] [employer] Other Basophilic stippling LM Ql (Bld) [facility] [employer] Other RBC morphology finding Nom (Bld) [facility] Other GLYCOHEMOGLOBIN A1Con 2022 ADA RECOMMENDATION SEE BELOW Normal [facility] Comment on above: Result Comment: ADA RECOMMENDED LIMIT 4.0 - 6.0 ADA THERAPEUTIC TARGET < 7.0 ACTION SUGGESTED > 7.0 Performed By: #### A 1C #### [facility] [address] [place] [address] Dr. Serafin Bloom Glucose [Mass/Vol] 108 mg/dL Normal [facility] Comment on above: Performed By: #### A 1C #### [facility] [address] [place] [address] Dr. Serafin Bloom HbA1c (Bld) [Mass fraction] 5.4 % Normal 4.5-6.2 [facility] Comment on above: Performed By: #### A 1C #### [facility] [address] [place] [address] Dr. Serafin Bloom LIPID PROFILEon 11-06-2022 CHOL-HDL RATIO NORM SEE BELOW Normal [facility] Comment on above: Result Comment: 3.3 - 4.4 LOW RISK 4.4 - 7.1 AVERAGE RISK 7.1 - 11.0 MODERATE RISK >11.0 HIGH RISK Performed By: #### A LT, LIPID, BMP #### [facility] [address] [address] [address] Serafin Bloom Cholesterol [Mass/Vol] 145 mg/dL <=200 mg/dL [facility] Comment on above: Performed By: #### A LT, LIPID, BMP #### [facility] [address] [address] [address] Serafin Bloom Cholesterol in HDL [Mass/Vol] 47 mg/dL 40-60 mg/dL [facility] Comment on above: Performed By: #### A LT, LIPID, BMP #### [facility] [address] [address] [address] Serafin Bloom Cholesterol in LDL [Mass/Vol] 67.6 mg/dL Normal [facility] Comment on above: Performed By: #### A LT, LIPID, BMP #### [facility] [address] [address] [address] Serafin Bloom Cholesterol.total/ Cholesterol in HDL [Mass ratio] 3.1 {ratio} [facility] Comment on above: Performed By: #### A LT, LIPID, BMP #### [facility] [address] [address] [address] Serafin Bloom HDL NORMAL > or = 60 mg/dl - LO W CARDIOVASCULAR RISK <40 mg/dl - HIGH CARDIOVASCULAR RISK Normal [facility] Comment on above: Performed By: #### A LT, LIPID, BMP #### [facility] [address] [address] [address] Serafin Bloom LDL CALC NORMAL SEE BELOW Normal [facility] Comment on above: Result Comment: <100 mg/dl OPTIMAL 100 - 129 mg/dl NEAR OR ABOVE OPTIMAL 130 - 159 mg/dl BORDERLINE HIGH 160 - 189 mg/dl HIGH >190 mg/dl VERY HIGH Performed By: #### A LT, LIPID, BMP #### [facility] [address] [address] [address] Serafin Bloom Triglyceride [Mass/Vol] 152 mg/dL Critically high <=150 mg/dL [facility] Comment on above: Performed By: #### A LT, LIPID, BMP #### [facility] [address] [address] [address] Serafin Bloom VLDL CALC 30.4 mg/dL Normal [facility] Comment on above: Performed By: #### A LT, LIPID, BMP #### [facility] [address] [address] [address] Serafin Bloom Lipid Panelon 11-06-2022 Lipid Panel > or = 60 mg/dl - LO W CARDIOVASCULAR RISK <40 mg/dl - HIGH CARDIOVASCULAR RISK [employer] Other Lipid Panel SEE BELOW [employer] Other Lipid Panel 67.6 mg/dL [employer] Other Lipid Panel 30.4 mg/dL [employer] Other PROF CHEM 8 (BAS METB)on Anion gap [Moles/Vol] 12.4 mmol/L [facility] Comment on above: Performed By: #### A LT, LIPID, BMP #### [facility] [address] [address] [address] Serafin Bloom Calcium [Mass/Vol] 9.3 mg/dL Normal 8.5-10.1 [facility] Comment on above: Performed By: #### A LT, LIPID, BMP #### [facility] [address] [address] [address] Serafin Bloom Chloride [Moles/Vol] 106 mmol/L 98-107 mmol/L [facility] Comment on above: Performed By: #### A LT, LIPID, BMP #### [facility] [address] [address] [address] Serafin Bloom CO2 [Moles/Vol] 27.3 mmol/L Normal 21.0-32.0 [facility] Comment on above: Performed By: #### A LT, LIPID, BMP #### [facility] [address] [address] [address] Serafin Bloom Creatinine [Mass/Vol] 0.66 mg/dL Critically low 0.70-1.30 [facility] Comment on above: Performed By: #### A LT, LIPID, BMP #### [facility] [address] [address] [address] Serafin Bloom EGFR-AF FRENCH >60 Normal >=60 [facility] Comment on above: Performed By: #### A LT, LIPID, BMP #### [facility] [address] [address] [address] Serafin Bloom EGFR-NON AF FRENCH >60 Normal >=60 [facility] Comment on above: Performed By: #### A LT, LIPID, BMP #### [facility] [address] [address] [address] Serafin Bloom Glucose [Mass/Vol] 93 mg/dL Normal 74-106 [facility] Comment on above: Performed By: #### A LT, LIPID, BMP #### [facility] [address] [address] [address] Serafin Bloom Potassium [Moles/Vol] 3.7 mmol/L Normal 3.5-5.1 [facility] Comment on above: Performed By: #### A LT, LIPID, BMP #### [facility] [address] [address] [address] Serafin Bloom Sodium [Moles/Vol] 142 mmol/L Normal 136-145 [facility] Comment on above: Performed By: #### A LT, LIPID, BMP #### [facility] [address] [address] [address] Serafin Bloom Urea nitrogen [Mass/Vol] 11.0 mg/dL Normal 7.0-18.0 [facility] Comment on above: Performed By: #### A LT, LIPID, BMP #### [facility] [address] [address] [address] Serafin Bloom Urea nitrogen/Creatinin e [Mass ratio] 16.7 mg/mg [facility] Comment on above: Performed By: #### A LT, LIPID, BMP #### [facility] [address] [place], [place] [address] Dr. Serafin Bloom SGPTon 11-06-2022 ALT [Catalytic activity/Vol] 38 U/L 16-63 U/L [facility] Comment on above: Performed By: #### A LT, LIPID, BMP #### [facility] [address] [place], [place] [address] HEAD WO CONTRASTon [...] by:JIHAN Monsivaisigned by:Delmi Ahumada MD02/06/18Final result Normal [facility] Basic Metabolic Profon 01-24 (cont.) Normal [facility] Comment on above: Result Comment: Aver age GFR for 60-69 years old: 85 mL/min/1.73sq mChronic Kidney Disease: <60 mL/min/1.73sq mKidney failure: <15 mL/min/1.73sq meGFR calculated using average adult body mass. Additional eGFR calculator available at:http://[email or web address]/multiple_crcl_2012.htm[address] [address] Performed By: #### C DP, PT, PTT, CP, CRP, TSHX, SED ####[address] [address] Anion gap 12 mmol/L Normal 9-[address] [facility] Comment on above: Performed By: #### C DP, PT, PTT, CP, CRP, TSHX, SED ####[address] [address] Calcium 7.9 mg/dL Low 8.6-10.[address] [facility] Comment on above: Performed By: #### C DP, PT, PTT, CP, CRP, TSHX, SED ####[address] [address] Chloride 109 mmol/L High 98-[address] [facility] Comment on above: Performed By: #### C DP, PT, PTT, CP, CRP, TSHX, SED ####[place] [address] CO2 18 mmol/L Low 20-[address] [facility] Comment on above: Performed By: #### C DP, PT, PTT, CP, CRP, TSHX, SED ####[address] [address] [place] [address] Creatinine 0.45 mg/dL Low 0.70-1.[address] [facility] [facility] [address] [facility] Comment on above: Performed By: #### C DP, PT, PTT, CP, CRP, TSHX, SED ####[address] [place] [address] eGFR (non-black) mL/min/{1.73_m2} Normal >60 [facility] Comment on above: Performed By: #### C DP, PT, PTT, CP, CRP, TSHX, SED ####[address] [address] Glucose mass conc 113 mg/dL High 70-99 [facility] Comment on above: Performed By: #### C DP, PT, PTT, CP, CRP, TSHX, SED ####[address] [address] Potassium molar conc 3.9 mmol/L Normal 3.7-5.[address] [facility] Comment on above: Performed By: #### C DP, PT, PTT, CP, CRP, TSHX, SED ####[address] [place] [address] Sodium 139 mmol/L Normal 135-[address] [facility] Comment on above: Performed By: #### C DP, PT, PTT, CP, CRP, TSHX, SED ####[address] [place] [address] Urea nitrogen 17 mg/dL Normal 8-[address] [facility] Comment on above: Performed By: #### C DP, PT, PTT, CP, CRP, TSHX, SED ####[address] [address] BUN/CRE Ratio NOT REPORTED Normal 9-[address] [facility] Comment on above: Performed By: #### C DP, PT, PTT, CP, CRP, TSHX, SED ####[address] [address] Staging: NOT REPORTED Normal [facility] Comment on above: Performed By: #### C DP, PT, PTT, CP, CRP, TSHX, SED ####[address] [address] CBC with Diffon 01-24-2018 Abs. Basophil <0.03 Normal 0.00-0.[address] [facility] Comment on above: Performed By: #### C DP, PT, PTT, CP, CRP, TSHX, SED ####[place] [address] Abs.Neutrophil (Seg) 6.94 k/uL Normal 1.50-8.[address] [facility] Comment on above: Performed By: #### C DP, PT, PTT, CP, CRP, TSHX, SED ####[address] [address] Basophils/100 WBC Auto (Bld) 0 % Normal 0-[address] [facility] Comment on above: Performed By: #### C DP, PT, PTT, CP, CRP, TSHX, SED ####[address] [address] Eosinophils 0.06 10*3/uL Normal 0.00-0.[address] [facility] Comment on above: Performed By: #### C DP, PT, PTT, CP, CRP, TSHX, SED ####[address] [address] Eosinophils/100 leukocytes 1 % Normal 1-[address] [facility] Comment on above: Performed By: #### C DP, PT, PTT, CP, CRP, TSHX, SED ####[place] [address] Erythrocyte distribution width Auto Ratio (RBC) 12.7 % Normal 11.8-14.[address] [facility] Comment on above: Performed By: #### C DP, PT, PTT, CP, CRP, TSHX, SED ####[address] [address] Erythrocytes (RBC) 4.16 10*6/uL Low 4.21-5.77 [facility] Comment on above: Performed By: #### C DP, PT, PTT, CP, CRP, TSHX, SED ####[address] [address] Erythrocytes (RBC) 0.0 per 100 WBC Normal 0.0 M [facility] Comment on above: Performed By: #### C DP, PT, PTT, CP, CRP, TSHX, SED ####[address] [address] Granulocytes/100 WBC (Bld) 0.08 k/uL Normal 0.00-0.[address] [facility] Comment on above: Result Comment: [id number] [place] [address] Performed By: #### C DP, PT, PTT, CP, CRP, TSHX, SED ####[address] [address] Hematocrit (HCT) 38.9 % Low 40.7-50.[address] [facility] Comment on above: Performed By: #### C DP, PT, PTT, CP, CRP, TSHX, SED ####[address] [address] Hemoglobin mass conc (Bld) 12.4 g/dL Low 13.0-17.[address] [facility] Comment on above: Performed By: #### C DP, PT, PTT, CP, CRP, TSHX, SED ####[address] [address] Immature granulocytes #/vol (Bld) 1 % High [address] [facility] Comment on above: Performed By: #### C DP, PT, PTT, CP, CRP, TSHX, SED ####[address] [address] Lymphocytes 2.32 10*3/uL Normal 1.10-3.[address] [facility] Comment on above: Performed By: #### C DP, PT, PTT, CP, CRP, TSHX, SED ####[address] [address] Lymphocytes/100 leukocytes 22 % Low 24-[address] [facility] Comment on above: Performed By: #### C DP, PT, PTT, CP, CRP, TSHX, SED ####[address] [address] MCH 29.8 pg Normal 25.2-33.[address] [facility] Comment on above: Performed By: #### C DP, PT, PTT, CP, CRP, TSHX, SED ####[place] [address] MCHC mass conc (RBC) 31.9 g/dL Normal 28.4-34.[address] [facility] Comment on above: Performed By: #### C DP, PT, PTT, CP, CRP, TSHX, SED ####[address] [address] MCV 93.5 fL Normal 82.6-102.[address] [facility] Comment on above: Performed By: #### C DP, PT, PTT, CP, CRP, TSHX, SED ####[place] [address] Monocytes 1.12 10*3/uL Normal 0.10-1.[address] [facility] Comment on above: Performed By: #### C DP, PT, PTT, CP, CRP, TSHX, SED ####[address] [address] Monocytes/100 leukocytes 11 % Normal 3-[address] [facility] Comment on above: Performed By: #### C DP, PT, PTT, CP, CRP, TSHX, SED ####[address] [address] Neutrophil (Seg) 66 % High 36-[address] [facility] Comment on above: Performed By: #### C DP, PT, PTT, CP, CRP, TSHX, SED ####[address] [address] Platelet mean volume (PMV) 11.1 fL Normal 8.1-13.[address] [facility] Comment on above: Performed By: #### C DP, PT, PTT, CP, CRP, TSHX, SED ####[address] [address] Platelets 211 10*3/uL Normal 138-[address] [facility] Comment on above: Performed By: #### C DP, PT, PTT, CP, CRP, TSHX, SED ####[address] [address] WBC (Leukocytes) 10.5 10*3/uL Normal 3.5-11.[address] [facility] Comment on above: Performed By: #### C DP, PT, PTT, CP, CRP, TSHX, SED ####[address] [address] Auto Diff Performed NOT REPORTED Normal [facility] Comment on above: Performed By: #### C DP, PT, PTT, CP, CRP, TSHX, SED ####[address] [address] Erythrocyte morphology NOT REPORTED Normal [facility] Comment on above: Performed By: #### C DP, PT, PTT, CP, CRP, TSHX, SED ####[address] [place] [address] Platelets NOT REPORTED Normal [facility] Comment on above: Performed By: #### C DP, PT, PTT, CP, CRP, TSHX, SED ####[address] [address] WBC Morphology NOT REPORTED Normal [facility] Comment on above: Performed By: #### C DP, PT, PTT, CP, CRP, TSHX, SED ####[address] [address] Discharge Summaryon 01-25-20 18 HIM IP Note OR [employer]el [employer] Firer/Fireman Normal [facility] Plan of Careon 01-24-2018 HIM IP Note OR [employer]el [employer] Firer/Fireman Normal [facility] Progress Noteon 01-24-2018 HIM IP Note OR Diesel Locomotive Firer/Fireman Normal [facility] HIM IP Note OR Diesel Locomotive Firer/Fireman Normal [facility] HIM IP Note OR [employer]el Locomotive Firer/Fireman Normal [facility] Basic Metabolic Profon 01-23 (cont.) Normal [facility] Comment on above: Result Comment: Aver age GFR for 60-69 years old: 85 mL/min/1.73sq mChronic Kidney Disease: <60 mL/min/1.73sq mKidney failure: <15 mL/min/1.73sq meGFR calculated using average adult body mass. Additional eGFR calculator available at:[email or web address] [facility] [address] [place] [address] Performed By: #### C DP, PT, PTT, CP, CRP, TSHX, SED ####[address] [address] Anion gap 14 mmol/L Normal 9-[address] [facility] Comment on above: Performed By: #### C DP, PT, PTT, CP, CRP, TSHX, SED ####[address] [place] [address] Calcium 8.6 mg/dL Normal 8.6-10.[address] [facility] Comment on above: Performed By: #### C DP, PT, PTT, CP, CRP, TSHX, SED ####[address] [address] Chloride 109 mmol/L High 98-[address] [facility] Comment on above: Performed By: #### C DP, PT, PTT, CP, CRP, TSHX, SED ####[address] [address] CO2 20 mmol/L Normal 20-[address] [facility] Comment on above: Performed By: #### C DP, PT, PTT, CP, CRP, TSHX, SED ####[address] [address] Creatinine 0.61 mg/dL Low 0.70-1.[address] [facility] Comment on above: Performed By: #### C DP, PT, PTT, CP, CRP, TSHX, SED ####[address] [address] eGFR (non-black) mL/min/{1.73_m2} Normal >60 [facility] Comment on above: Performed By: #### C DP, PT, PTT, CP, CRP, TSHX, SED ####[address] [address] Glucose mass conc 149 mg/dL High 70-99 [facility] Comment on above: Performed By: #### C DP, PT, PTT, CP, CRP, TSHX, SED ####[address] [address] Potassium molar conc 4.1 mmol/L Normal 3.7-5.[address] [facility] Comment on above: Performed By: #### C DP, PT, PTT, CP, CRP, TSHX, SED ####[address] [address] Sodium 143 mmol/L Normal 135-[address] [facility] Comment on above: Performed By: #### C DP, PT, PTT, CP, CRP, TSHX, SED ####[address] [address] Urea nitrogen 16 mg/dL Normal - [facility] Comment on above: Performed By: #### C DP, PT, PTT, CP, CRP, TSHX, SED ####[address] [address] BUN/CRE Ratio NOT REPORTED Normal - [facility] Comment on above: Performed By: #### C DP, PT, PTT, CP, CRP, TSHX, SED ####[address] [address] Staging: NOT REPORTED Normal [facility] Comment on above: Performed By: #### C DP, PT, PTT, CP, CRP, TSHX, SED ####[address] [address] CBC with Diffon 01-23-2018 Abs. Basophil <0.03 Normal 0.00-0.[address] [facility] Comment on above: Performed By: #### C DP, PT, PTT, CP, CRP, TSHX, SED ####[address] [address] Abs.Neutrophil (Seg) 12.77 k/uL High 1.50-8.[address] [facility] Comment on above: Performed By: #### C DP, PT, PTT, CP, CRP, TSHX, SED ####[address] [address] Basophils/100 WBC Auto (Bld) 0 % Normal 0-[address] [facility] Comment on above: Performed By: #### C DP, PT, PTT, CP, CRP, TSHX, SED ####[address] [address] Eosinophils 10*3/uL Normal 0.00-0.[address] [facility] Comment on above: Performed By: #### C DP, PT, PTT, CP, CRP, TSHX, SED ####[address] [address] Eosinophils/100 leukocytes 0 % Low 1-[address] [facility] Comment on above: Performed By: #### C DP, PT, PTT, CP, CRP, TSHX, SED ####[address] [address] Granulocytes/100 WBC (Bld) 0.07 k/uL Normal 0.00-0.[address] [facility] Comment on above: Result Comment: [id number] [place] [address] Performed By: #### C DP, PT, PTT, CP, CRP, TSHX, SED ####[address] [address] Immature granulocytes #/vol (Bld) 1 % High [address] [facility] Comment on above: Performed By: #### C DP, PT, PTT, CP, CRP, TSHX, SED ####[address] [address] Lymphocytes 1.10 10*3/uL Normal 1.10-3.[address] [facility] Comment on above: Performed By: #### C DP, PT, PTT, CP, CRP, TSHX, SED ####[address] [address] Lymphocytes/100 leukocytes 7 % Low 24-[address] [facility] Comment on above: Performed By: #### C DP, PT, PTT, CP, CRP, TSHX, SED ####[address] [address] Monocytes 0.82 10*3/uL Normal 0.10-1.[address] [facility] Comment on above: Performed By: #### C DP, PT, PTT, CP, CRP, TSHX, SED ####[address] [address] Monocytes/100 leukocytes 6 % Normal 3-[address] [facility] Comment on above: Performed By: #### C DP, PT, PTT, CP, CRP, TSHX, SED ####[address] [address] Neutrophil (Seg) 86 % High 36-[address] [facility] Comment on above: Performed By: #### C DP, PT, PTT, CP, CRP, TSHX, SED ####[address] [address] Erythrocyte distribution width Auto Ratio (RBC) 13.0 % Normal 11.8-14.[address] [facility] Comment on above: Performed By: #### C DP, PT, PTT, CP, CRP, TSHX, SED ####[address] [address] Erythrocytes (RBC) 4.70 10*6/uL Normal 4.21-5.77 [facility] Comment on above: Performed By: #### C DP, PT, PTT, CP, CRP, TSHX, SED ####[address] [address] Erythrocytes (RBC) 0.0 per 100 WBC Normal 0.0 M [facility] Comment on above: Performed By: #### C DP, PT, PTT, CP, CRP, TSHX, SED ####[address] [address] Hematocrit (HCT) 41.1 % Normal 40.7-50.[address] [facility] Comment on above: Performed By: #### C DP, PT, PTT, CP, CRP, TSHX, SED ####[address] [address] Hemoglobin mass conc (Bld) 13.7 g/dL Normal 13.0-17.[address] [facility] Comment on above: Performed By: #### C DP, PT, PTT, CP, CRP, TSHX, SED ####[address] [address] MCH 29.1 pg Normal 25.2-33.[address] [facility] Comment on above: Performed By: #### C DP, PT, PTT, CP, CRP, TSHX, SED ####[address] [address] MCHC mass conc (RBC) 33.3 g/dL Normal 28.4-34.[address] [facility] Comment on above: Performed By: #### C DP, PT, PTT, CP, CRP, TSHX, SED ####[address] [address] MCV 87.4 fL Normal 82.6-102.[address] [facility] Comment on above: Performed By: #### C DP, PT, PTT, CP, CRP, TSHX, SED ####[address] [place] [address] Platelet mean volume (PMV) 10.7 fL Normal 8.1-13.[address] [facility] Comment on above: Performed By: #### C DP, PT, PTT, CP, CRP, TSHX, SED ####[address] [address] Platelets 229 10*3/uL Normal 138-[address] [facility] Comment on above: Performed By: #### C DP, PT, PTT, CP, CRP, TSHX, SED ####[address] [address] WBC (Leukocytes) 14.8 10*3/uL High 3.5-11.[address] [facility] Comment on above: Performed By: #### C DP, PT, PTT, CP, CRP, TSHX, SED ####[address] [address] Auto Diff Performed NOT REPORTED Normal [facility] Comment on above: Performed By: #### C DP, PT, PTT, CP, CRP, TSHX, SED ####[address] [address] Erythrocyte morphology NOT REPORTED Normal [facility] Comment on above: Performed By: #### C DP, PT, PTT, CP, CRP, TSHX, SED ####[address] [address] Platelets NOT REPORTED Normal [facility] Comment on above: Performed By: #### C DP, PT, PTT, CP, CRP, TSHX, SED ####[address] [address] WBC Morphology NOT REPORTED Normal [facility] Comment on above: Performed By: #### C DP, PT, PTT, CP, CRP, TSHX, SED ####[address] [address] [address] HEAD WO CONTRASTon 2017 CT HEAD [...] (previously 13 mm).Interpreted by:JIHAN Penalozaigned by:Quintin Byrnes MD01/23/inal result Normal [facility] Cult,Urineon 01-23-2018 Cult,Urine Specimen Description .CATHETERIZED URINE WOODS FIRST INSERTION Special Requests NOT REPORTED Culture NO GROWTH Report Status FINAL 01/23/[address] [facility] Comment on above: Performed By: #### C DP, PT, PTT, CP, CRP, TSHX, SED ####[facility] [id number] [place] [address] History and Physicalon 01-23 HIM IP Note OR Diesel Locomotive Firer/Fireman Normal [facility] MRSA, DNA, Nasalon 8 MRSA, DNA, Nasal NEGATIVE: MRSA DNA n ot detected by nucleic acid amplification. Normal NMRSAA [facility] Comment on above: Result Comment: Resu lts should be used as an adjunct to nosocomial control efforts to identify patients needing enhanced precautions.The test is not intended to identify patients with staphylococcal infections. Results should not be used to guide or monitor treatment for MRSA infections.[facility] [place] [address] [place] [address] Performed By: #### C DP, PT, PTT, CP, CRP, TSHX, SED ####[id number] [place] [address] Plan of Careon 01-23-2018 HIM IP Note OR Diesel Locomotive Firer/Fireman Normal [facility] HIM IP Note OR Diesel Locomotive Firer/Fireman Normal [facility] Progress Noteon 01-23-2018 HIM IP Note OR Diesel Locomotive Firer/Fireman Normal [facility] HIM IP Note OR Diesel Locomotive Firer/Fireman Normal [facility] HIM IP Note OR Diesel Locomotive Firer/Fireman Normal [facility] HIM IP Note OR Diesel Locomotive Firer/Fireman Normal [facility] HIM IP Note OR Diesel Locomotive Firer/Fireman Normal [facility] HIM IP Note OR Diesel Locomotive Firer/Fireman Normal [facility] CTA HEAD W CONTRASTon 2017 CTA [...] in effacement of the left lateral ventricleand [id number] shift of 9 mm.No evidence of aneurysm or arteriovenous malformation.IMPRESSION: Left cavernous carotid moderate stenosis.No evidence of aneurysm or arteriovenous malformationMixed density left cerebral convexity subdural collection with 9 mm midlineshift.Interpreted by:JIHAN Fowlerigned by:Amrita Nieves MD01/22/18Edited Result - FINAL Normal [facility] MRSA, DNA, Nasalon 8 Specimen Description .NASAL SWAB Normal [facility] Comment on above: Performed By: #### C DP, PT, PTT, CP, CRP, TSHX, SED ####[facility] [id number] [place] [address] Op Noteon 01-22-2018 HIM IP Note OR Diesel Locomotive Firer/Fireman Normal [facility] Plan of Careon 01-22-2018 HIM IP Note OR Diesel Locomotive Firer/Fireman Normal [facility] HIM IP Note OR Diesel Locomotive Firer/Fireman Normal [facility] Progress Noteon 01-22-2018 HIM IP Note OR Diesel Locomotive Firer/Fireman Normal [facility] HIM IP Note OR Diesel Locomotive Firer/Fireman Normal [facility] HIM IP Note OR Diesel Locomotive Firer/Fireman Normal [facility] HIM IP Note OR Diesel Locomotive Firer/Fireman Normal [facility] HIM IP Note OR Diesel Locomotive Firer/Fireman Normal [facility] HIM IP Note OR Diesel Locomotive Firer/Fireman Normal [facility] HIM IP Note OR Diesel Locomotive Firer/Fireman Normal [facility] APTTon 01-21-2018 aPTT 23.4 s Normal 20.5-30.[address] [facility] Comment on above: Result Comment: [facility] [address] [place] [address] Performed By: #### C DP, PT, PTT, CP, CRP, TSHX, SED ####[facility] [id number] [place] [address] C-Reactive Proteinon 018 C reactive protein (CRP) 3.0 mg/L Normal 0.0-5.[address] [facility] Comment on above: Result Comment: [facility] [address] [place] [address] Performed By: #### C DP, PT, PTT, CP, CRP, TSHX, SED ####[address] [address] CBC with Diffon 01-21-2018 Abs. Basophil 0.09 k/uL Normal 0.00-0.[address] [facility] Comment on above: Performed By: #### C DP, PT, PTT, CP, CRP, TSHX, SED ####[place] [address] Abs.Neutrophil (Seg) 3.58 k/uL Normal 1.50-8.[address] [facility] Comment on above: Performed By: #### C DP, PT, PTT, CP, CRP, TSHX, SED ####[address] [address] Basophils/100 WBC Auto (Bld) 1 % Normal 0-[address] [facility] Comment on above: Performed By: #### C DP, PT, PTT, CP, CRP, TSHX, SED ####[address] [address] Eosinophils 0.84 10*3/uL High 0.00-0.[address] [facility] Comment on above: Performed By: #### C DP, PT, PTT, CP, CRP, TSHX, SED ####[place] [address] Eosinophils/100 leukocytes 10 % High 1-[address] [facility] Comment on above: Performed By: #### C DP, PT, PTT, CP, CRP, TSHX, SED ####[place] [address] Erythrocyte distribution width Auto Ratio (RBC) 12.3 % Normal 11.8-14.[address] [facility] Comment on above: Performed By: #### C DP, PT, PTT, CP, CRP, TSHX, SED ####[address] [address] Erythrocytes (RBC) 0.0 per 100 WBC Normal 0.0 M [facility] Comment on above: Performed By: #### C DP, PT, PTT, CP, CRP, TSHX, SED ####[address] [address] Erythrocytes (RBC) 4.72 10*6/uL Normal 4.21-5.77 [facility] Comment on above: Performed By: #### C DP, PT, PTT, CP, CRP, TSHX, SED ####[address] [address] Granulocytes/100 WBC (Bld) 0.03 k/uL Normal 0.00-0.[address] [facility] Comment on above: Result Comment: [address] [address] Performed By: #### C DP, PT, PTT, CP, CRP, TSHX, SED ####[address] [address] Hematocrit (HCT) 42.6 % Normal 40.7-50.[address] [facility] Comment on above: Performed By: #### C DP, PT, PTT, CP, CRP, TSHX, SED ####[address] [address] Hemoglobin mass conc (Bld) 13.7 g/dL Normal 13.0-17.[address] [facility] Comment on above: Performed By: #### C DP, PT, PTT, CP, CRP, TSHX, SED ####[address] [address] Immature granulocytes #/vol (Bld) 0 % Normal [address] [facility] Comment on above: Performed By: #### C DP, PT, PTT, CP, CRP, TSHX, SED ####[address] [address] Lymphocytes 2.95 10*3/uL Normal 1.10-3.[address] [facility] Comment on above: Performed By: #### C DP, PT, PTT, CP, CRP, TSHX, SED ####[address] [address] Lymphocytes/100 leukocytes 36 % Normal 24-[address] [facility] Comment on above: Performed By: #### C DP, PT, PTT, CP, CRP, TSHX, SED ####[address] [address] MCH 29.0 pg Normal 25.2-33.[address] [facility] Comment on above: Performed By: #### C DP, PT, PTT, CP, CRP, TSHX, SED ####[address] [address] MCHC mass conc (RBC) 32.2 g/dL Normal 28.4-34.[address] [facility] Comment on above: Performed By: #### C DP, PT, PTT, CP, CRP, TSHX, SED ####[address] [address] MCV 90.3 fL Normal 82.6-102.[address] [facility] Comment on above: Performed By: #### C DP, PT, PTT, CP, CRP, TSHX, SED ####[address] [address] Monocytes 0.71 10*3/uL Normal 0.10-1.[address] [facility] Comment on above: Performed By: #### C DP, PT, PTT, CP, CRP, TSHX, SED ####[address] [address] Monocytes/100 leukocytes 9 % Normal 3-[address] [facility] Comment on above: Performed By: #### C DP, PT, PTT, CP, CRP, TSHX, SED ####[address] [address] Neutrophil (Seg) 44 % Normal 36-[address] [facility] Comment on above: Performed By: #### C DP, PT, PTT, CP, CRP, TSHX, SED ####[address] [address] Platelet mean volume (PMV) 10.3 fL Normal 8.1-13.[address] [facility] Comment on above: Performed By: #### C DP, PT, PTT, CP, CRP, TSHX, SED ####[address] [address] Platelets 243 10*3/uL Normal 138-[address] [facility] Comment on above: Performed By: #### C DP, PT, PTT, CP, CRP, TSHX, SED ####[address] [address] WBC (Leukocytes) 8.2 10*3/uL Normal 3.5-11.3 [facility] Comment on above: Performed By: #### C DP, PT, PTT, CP, CRP, TSHX, SED ####[address] [address] Auto Diff Performed NOT REPORTED Normal [facility] Comment on above: Performed By: #### C DP, PT, PTT, CP, CRP, TSHX, SED ####[address] [address] Erythrocyte morphology NOT REPORTED Normal [facility] Comment on above: Performed By: #### C DP, PT, PTT, CP, CRP, TSHX, SED ####[address] [address] Platelets NOT REPORTED Normal [facility] [facility] Comment on above: Performed By: #### C DP, PT, PTT, CP, CRP, TSHX, SED ####[address] [address] WBC Morphology NOT REPORTED Normal [facility] Comment on above: Performed By: #### C DP, PT, PTT, CP, CRP, TSHX, SED ####[address] [address] Comp Metabolic Profon 2017 (cont.) Normal [facility] Comment on above: Result Comment: Aver age GFR for 60-69 years old: 85 mL/min/1.73sq mChronic Kidney Disease: <60 mL/min/1.73sq mKidney failure: <15 mL/min/1.73sq meGFR calculated using average adult body mass. Additional eGFR calculator available at:http://www.[employer].AirMedia/multiple_crcl_2011.htm[address] [address] Performed By: #### C DP, PT, PTT, CP, CRP, TSHX, SED ####[address] [address] Alanine aminotransferase (ALT) 26 U/L Normal 5-[address] [facility] Comment on above: Performed By: #### C DP, PT, PTT, CP, CRP, TSHX, SED ####[address] [address] Albumin 4.2 g/dL Normal 3.5-5.[address] [facility] Comment on above: Performed By: #### C DP, PT, PTT, CP, CRP, TSHX, SED ####[address] [address] Albumin/Globulin Ratio 1.6 {ratio} Normal 1.0-2.[address] [facility] Comment on above: Performed By: #### C DP, PT, PTT, CP, CRP, TSHX, SED ####[address] [place] [address] Alkaline Phos 57 U/L Normal 40-[address] [facility] Comment on above: Performed By: #### C DP, PT, PTT, CP, CRP, TSHX, SED ####[address] [address] Anion gap 10 mmol/L Normal 9-[address] [facility] Comment on above: Performed By: #### C DP, PT, PTT, CP, CRP, TSHX, SED ####[address] [address] Aspartate aminotransferase (AST) 16 U/L Normal <[address] [facility] Comment on above: Performed By: #### C DP, PT, PTT, CP, CRP, TSHX, SED ####[address] [address] Bilirubin Ql (U) 0.62 mg/dL Normal 0.3-1.[address] [facility] Comment on above: Performed By: #### C DP, PT, PTT, CP, CRP, TSHX, SED ####[address] [address] Calcium 8.8 mg/dL Normal 8.6-10.[address] [facility] Comment on above: Performed By: #### C DP, PT, PTT, CP, CRP, TSHX, SED ####[address] [address] Chloride 107 mmol/L Normal 98-[address] [facility] Comment on above: Performed By: #### C DP, PT, PTT, CP, CRP, TSHX, SED ####[address] [address] CO2 21 mmol/L Normal 20-[address] [facility] Comment on above: Performed By: #### C DP, PT, PTT, CP, CRP, TSHX, SED ####[address] [address] Creatinine 0.57 mg/dL Low 0.70-1.[address] [facility] Comment on above: Performed By: #### C DP, PT, PTT, CP, CRP, TSHX, SED ####[address] [address] eGFR (non-black) mL/min/{1.73_m2} Normal >60 [facility] Comment on above: Performed By: #### C DP, PT, PTT, CP, CRP, TSHX, SED ####[address] [address] Glucose mass conc 99 mg/dL Normal 70-99 [facility] Comment on above: Performed By: #### C DP, PT, PTT, CP, CRP, TSHX, SED ####[address] [address] Potassium molar conc 3.7 mmol/L Normal 3.7-5.[address] [facility] Comment on above: Performed By: #### C DP, PT, PTT, CP, CRP, TSHX, SED ####[address] [address] Protein 6.9 g/dL Normal 6.4-8.[address] [facility] Comment on above: Performed By: #### C DP, PT, PTT, CP, CRP, TSHX, SED ####[address] [address] Sodium 138 mmol/L Normal 135-[address] [facility] Comment on above: Performed By: #### C DP, PT, PTT, CP, CRP, TSHX, SED ####[address] [address] Urea nitrogen 14 mg/dL Normal 8-[address] [facility] Comment on above: Performed By: #### C DP, PT, PTT, CP, CRP, TSHX, SED ####[address] [address] BUN/CRE Ratio NOT REPORTED Normal 9- [facility] Comment on above: Performed By: #### C DP, PT, PTT, CP, CRP, TSHX, SED ####[address] [address] Staging: NOT REPORTED Normal [facility] Comment on above: Performed By: #### C DP, PT, PTT, CP, CRP, TSHX, SED ####[address] [address] Consulton 01-21-2018 HIM IP Note OR Diesel Locomotive Firer/Fireman Normal [facility] HIM IP Note OR Diesel Locomotive Firer/Fireman Normal [facility] ED Noteon 01-21-2018 HIM IP Note OR Diesel Locomotive Firer/Fireman Normal [facility] Fibrinogenon 01-21-2018 Fibrinogen 421 mg/dL High 140-[address] [facility] Comment on above: Result Comment: [address] [address] Performed By: #### C DP, PT, PTT, CP, CRP, TSHX, SED ####[address] [address] History and Physicalon 01-21 HIM IP Note OR Diesel Locomotive Firer/Fireman Normal [facility] PSA, [employer] 01-21-2018 Prostatic Spec. Ag <0.01 Normal <4.[address] [facility] Comment on above: Result Comment: The Lelo ECLIA assay is used. Results obtained with different assay methods cannot be used interchangeably.[address] [address] Performed By: #### C DP, PT, PTT, CP, CRP, TSHX, SED ####[address] [address] PTon 01-21-2018 INR Coag RelTime (PPP) 1.0 {INR} Normal [facility] Comment on above: Result Comment: Ther apeutic Range: Moderate Anticoagulant Intensity: INR = 2.0-3.0 High Anticoagulant Intensity: INR = 2.5-3.[address] [address] Performed By: #### C DP, PT, PTT, CP, CRP, TSHX, SED ####[address] [address] Prothrombin time (PT) Coag time (PPP) 10.4 s Normal 9.0-12.[address] [facility] Comment on above: Performed By: #### C DP, PT, PTT, CP, CRP, TSHX, SED ####[address] [address] Plan of Careon 01-21-2018 HIM IP Note OR Diesel Locomotive Firer/Fireman Normal [facility] Platelet Functionon 01-22-20 18 Collagen/ADP 77 sec Normal 67-[address] [facility] Comment on above: Performed By: #### P FA ####[address] [address] Collagen/EPI 117 sec Normal 85-[address] [facility] Comment on above: Performed By: #### P FA ####[address] [address] Interpretation Normal platelet func tion. If patient clinical history/Physical examination is Normal [facility] Comment on above: Result Comment: posi tive for a bleeding diathesis, recommend repeat testing and/or additional primary hemostasis and/or coagulation studies.PFA results on patients treated with Plavix (clopidogrel) have not been established.[address] [address] Performed By: #### P FA ####[address] [address] Progress Noteon 01-21-2018 HIM IP Note OR Diesel Locomotive Firer/Fireman Normal [facility] Sedimentation Rateon 018 Sedimentation Rate 7 mm Normal 0-[address] [facility] Comment on above: Result Comment: [facility] [address] [place] [address] Performed By: #### C DP, PT, PTT, CP, CRP, TSHX, SED ####[address] [address] TSH w/reflex to FT4on 2017 Thyroid stimulating hormone (TSH) 4.56 m[IU]/L Normal 0.30-5.[address] [facility] Comment on above: Result Comment: [facility] [address] [place] [address] Performed By: #### C DP, PT, PTT, CP, CRP, TSHX, SED ####[address] [address] Thrombin Clot Timeon 018 Thrombin Clot Time 20.7 sec High 16.4-20.[address] [facility] Comment on above: Result Comment: [facility] [address] [place] [address] Performed By: #### C DP, PT, PTT, CP, CRP, TSHX, SED ####[address] [address] ED Provider Noteon 8 HIM IP Note OR Diesel Locomotive Firer/Fireman Normal [facility] Vital Signs Date Time Vital Sign Value Performing Clinician Facility 11-19-2024 08:31-0400 Body height 175.26 cm [facility] 11-19-2024 08:[id number] Body mass index (BMI) [Ratio] 26.2 kg/m2 [facility] 11-19-2024 08:31 Body weight 80.34 kg [facility] 11-19-2024 08:31-0400 Diastolic blood pressure 78 mm[Hg] [facility] 11-19-2024 08:31-0400 Heart rate 57 /min [facility] 11-19-2024 08:31-0400 Respiratory rate 12 /min [facility] 11-19-2024 08:31-0400 Systolic blood pressure 124 mm[Hg] [facility] 05-20-2024 09:05-0400 Body weight 79.88 kg [facility] 05-20-2024 09:05-0400 Diastolic blood pressure 84 mm[Hg] [facility] 05-20-2024 09:05-0400 Heart rate 52 /min [facility] 05-20-2024 09:05-0400 Respiratory rate 14 /min [facility] 05-20-2024 09:05-0400 SaO2% (BldA) [Mass fraction] 96 % [facility] 05-20-2024 09:05-0400 Systolic blood pressure 138 mm[Hg] [facility] 11-15-2023 09:05-0400 Body height 175.26 cm [facility] 11-15-2023 09:05-0400 Body mass index (BMI) [Ratio] 25.4 kg/m2 [facility] 11-15-2023 09:05-0400 Body weight 78.13 kg [facility] 11-15-2023 09:05-0400 Diastolic blood pressure 81 mm[Hg] [facility] 11-15-2023 09:05-0400 Heart rate 56 /min [facility] 11-15-2023 09:05-0400 Respiratory rate 12 /min [facility] 11-15-2023 09:05-0400 Systolic blood pressure 145 mm[Hg] [facility] 05-17-2023 10:00-0400 Body height 175.26 cm Juvenal Ball Other [employer] Other 05-17-2023 10:00-0400 Body mass index (BMI) [Ratio] 26.4 kg/m2 [facility] Other [employer] Other 05-17-2023 10:00-0400 Body weight 81.1 kg Juvenal Ball Other [employer] Other 05-17-2023 10:00-0400 Diastolic blood pressure 81 mm[Hg] Juvenal Ball Other [employer] Other 05-17-2023 10:00-0400 Respiratory rate 12 /min Juvenal Ball Other [employer] Other 05-17-2023 10:00-0400 Systolic blood pressure 136 mm[Hg] Juvenal Ball Other [employer] Other 11-06-2022 10:00-0400 Body height 175.26 cm Juvenal Ball Other [employer] Other 11-06-2022 10:00-0400 Body mass index (BMI) [Ratio] 26.37 kg/m2 [facility]ven[facility] Ball Other [employer] Other 11-06-2022 10:00-0400 Body weight 81.01 kg Juvenal Ball Other [employer] Other 11-06-2022 10:00-0400 Diastolic blood pressure 81 mm[Hg] Juvenal Ball Other [employer] Other 11-06-2022 10:00-0400 Respiratory rate 12 /min Juvenal Ball Other [employer] Other 11-06-2022 10:00-0400 Systolic blood pressure 122 mm[Hg] Juvenal Ball Other [employer] Other 10-04-2022 13:40-0500 Blood Pressure Location ROHINI FRY [facility] 10-04-2022 13:40-0500 Diastolic blood pressure 82 mm[Hg] ROHINIEMELIA ZAPIENRY [facility] 10-04-2022 13:40-0500 Heart rate 72 /min ROHINI LISANDRA [facility] 10-04-2022 13:40-0500 Systolic blood pressure 138 mm[Hg] ROHINI FRY [facility] Encounters Encounter Date Encounter Type Care Provider Facility Start: 11-19-2024 End: 11-19-2024 ambulatory [facility] Work Phone: Start: 11-19-2024 End: 11-19-2024 Patient encounter procedure [facility] Work Phone: Start: 05-20-2024 End: 05-20-2024 ambulatory [facility] Work Phone: Start: 05-20-2024 End: 05-20-2024 Patient encounter procedure [facility] Work Phone: Start: 12-24-2023 End: 12-25-2023 ambulatory VELASQUEZ B APLING Not Available Start: 11-15-2023 End: 11-15-2023 ambulatory [facility] Work Phone: Start: 11-15-2023 End: 11-15-2023 Patient encounter procedure [facility] Work Phone: Start: 10-30-2023 End: 10-31-2023 ambulatory PA-C ROHINI FRY Facility:[facility] Start: 10-24-2023 Non-patient / Non-visit [facility] Work Phone: Start: 05-17-2023 End: 05-17-2023 ambulatory Juvenal Davila Other [employer] Other Start: 05-17-2023 Office outpatient vi sit 25 minutes Juvenal Davila [facility] Start: 05-14-2023 End: 05-14-2023 ambulatory Juvenal Davila Other [employer] Other Start: 05-14-2023 Telephone encounter Juvenal [facility] Start: 04-24-2023 End: 04-24-2023 ambulatory Juvenal Davila Other [employer] Other Start: 04-24-2023 Telephone encounter Juvenal ST[facility]ORD [facility] Start: 02-19-2023 End: 02-19-2023 ambulatory Juvenal Davila Other [employer] Other Start: 02-19-2023 Telephone encounter Juvenal STANFORD [facility] Start: 11-06-2022 Patient encounter procedure Juvenal Davila [facility] Start: 11-06-2022 End: 11-07-[address] JUVENAL DAVILA Facility:[facility] Start: 10-04-2022 End: 10-04-2022 Patient encounter procedure ROHINI FRY [facility] Start: 09-27-2022 End: 09-28-[address] DOCTOR PETIT Facility:[facility] Start: 11-04-2021 Adult health examination Juvenal Davila Other [employer] Other Start: 02-06-2018 End: 02-09-2018 Ambulatory JUVENAL DAVILA [facility] Start: 01-20-2018 End: 01-24-2018 Evaluation and management of inpatient JUVENAL DAVILA [facility] Procedures Date Procedure Procedure Detail Performing Clinician Start: 09-27-[address] ROSA GARCIA FRANKLIN Comment on above: Performed By: #### P SAD #### [facility] [address] [place] [address] Dr. Serafin Bloom Start: 07-27-2021 Colonoscopy ROHINI WHITEHEAD Start: 02-14-2021 Replacement of aortic valve ROHNII FRY Start: 05-27-2020 Cardiac catheterization ROHINI FRY Start: 02-06-2018 Ct head/brain w/o co ntrast material JUVENAL BALL Start: 01-25-2018 Craniotomy ROHINI Anthony CHARLEY Start: 01-24-2018 DISCHARGE PATIENT SOCRATES MIN BALL [...] JUVENAL BALL Start: 01-22-2018 NEURO CHECKS JUVENAL Ryder ALL Start: 01-22-2018 PLACE INTERMITTENT P NEUMATIC COMPRESSION DEVICE JUVENAL BALL Start: 01-22-2018 TELEMETRY MONITORING BE NJGRACIELA BALL Start: 01-22-2018 FULL CODE JUVENAL Ryder ALL Start: 01-22-2018 INITIATE OXYGEN THER APY PROTOCOL JUVNEAL BALL Start: 01-22-2018 VITAL SIGNS JUVENAL Ryder ALL Start: 01-22-2018 WOUND CARE JUVENAL Ryder ALL Start: 01-22-2018 TRANSFER PATIENT ROSA IN BALL Start: 01-22-2018 Culture bacterial quanttative colony count urine JUVENAL BALL Start: 01-22-2018 EKG 12-LEAD JUVENAL Ryder ALL Start: 01-21-2018 FIBRINOGEN JUVENAL Ryder ALL Start: 01-21-2018 PSA, DIAGNOSTIC TOMMYAMI N BALL Start: 01-21-2018 THROMBIN CLOT TIME TOMMY OWENS BALL Start: 01-21-2018 OBTAIN MEDICAL RECORDS JUVENAL BALL Start: 01-21-2018 IP CONSULT TO HEM/ONC Aleksey ARANA BALL Start: 01-21-2018 NOTIFY PHYSICIAN (SPECIFY) JUVENAL BALL Start: 01-21-2018 PLACE INTERMITTENT P NEUMATIC COMPRESSION DEVICE JUVENAL BALL Start: 01-21-2018 REASON FOR NO CHEMIC AL VTE PROPHYLAXIS JUVENAL BALL Start: 01-21-2018 TELEMETRY MONITORING BE NJGRACIELA BALL Start: 01-21-2018 Ct angiography head w/contrast/noncontrast JUVENAL BALL Start: 01-21-2018 PLATELET FUNCTION TEST JUVENAL BALL Start: 01-21-2018 PREVIOUS SPECIMEN SOCRATES MIN BALL Start: 01-21-2018 PATIENT STATUS (FROM ED OR OR/PROCEDURAL) JUVENAL BALL Start: 01-21-2018 Blood count complete auto&auto difrntl wbc JUVENAL BALL Start: 01-21-2018 C-reactive protein BENJ OWENS BALL Start: 01-21-2018 Comprehensive metabo lic panel JUVENAL BALL Start: 01-21-2018 Prothrombin time BENJAM IN BALL Start: 01-21-2018 SEDIMENTATION RATE TOMMY OWENS BALL Start: 01-21-2018 Thromboplastin time partial plasma/whole blood JUVENAL BALL Start: 01-21-2018 TSH WITH REFLEX TOMMYAMI N BALL Start: 01-21-2018 IP CONSULT TO LEAD ASSEMBLER AL MEDICINE JUVENAL BALL Start: 10-18-2016 Radical prostatectom y with pelvic [...] Care Activity Detail Author Comprehensive metabo lic 1999 panel - Serum or Plasma [facility] enter Comprehensive metabo lic 1999 panel - Serum or Plasma [facility] enter [facility] Immunizations Immunization Date Immunization Notes Care Provider [facility] 05-20-2024 influenza, high dose seasonal, preservative-free [facility] 05-17-2023 influenza virus vaccine, unspecified formulation [facility] 05-17-2023 influenza, high dose seasonal, preservative-free Juvenal Davila Other [employer] Other 05-22-2022 influenza virus vaccine, split virus (incl. purified surface antigen) Juvenal Davila Other [employer] Other 05-22-2022 influenza virus vaccine, unspecified formulation ROHINI FRY [facility] 05-22-2022 influenza, high dose seasonal, preservative-free Juvenal Davila Other [employer] Other 02-22-2022 SARS-CoV-2 (COVID-19 ) mRNA-1273 vaccine ROHINI LISANDRA [facility] Comment on above: Result Comment: [id number]: [id number] 07-11-2021 SARS-CoV-2 (COVID-19 ) mRNA-1273 vaccine ROHINI LISANDRA [facility] 06-27-2021 influenza virus vaccine, unspecified formulation ROHINI LISANDRA [facility] 06-23-2021 influenza virus vaccine, split virus (incl. purified surface antigen) Juvenal Ball Other [employer] Other 06-23-2021 influenza virus vaccine, unspecified formulation [facility] 05-27-2021 SARS-CoV-2 (COVID-19 ) Ad26 vaccine, recombinant ROHINI LISANDRA [facility] 01-21-2021 pneumococcal polysaccharide vaccine, 23 valent ROHINI LISANDRA [facility] 11-25-2020 SARS-CoV-2 (COVID-19 ) Ad26 vaccine, recombinant ROHINI LISANDRA [facility] 11-09-2020 SARS-CoV-2 (COVID-19 ) mRNA-1273 vaccine ROHINI LISANDRA [facility] 10-25-2020 SARS-CoV-2 (COVID-19 ) Ad26 vaccine, recombinant ROHINI LISANDRA [facility] 10-14-2020 SARS-CoV-2 (COVID-19 ) mRNA-1273 vaccine ROHINI LISANDRA [facility] 07-12-2020 influenza virus vaccine, unspecified formulation ROHINI FRY [facility] 06-01-2020 influenza virus vaccine, split virus (incl. purified surface antigen) Juvenal Davila Other [facility] [employer] Other 06-01-2020 influenza virus vaccine, unspecified formulation [facility] 02-20-2020 pneumococcal conjuga te vaccine, 13 valent Juvenal Davila Other [facility] 07-08-2019 influenza virus vaccine, split virus (incl. purified surface antigen) Juvenal Davila Other [facility] [employer] Other 07-08-2019 influenza virus vaccine, unspecified formulation [facility] 06-05-2018 influenza virus vaccine, split virus (incl. purified surface antigen) Juvenal Davila Other [employer] [employer] Other 06-05-2018 influenza virus vaccine, unspecified formulation [facility] 05-09-2016 tetanus and diphther ia toxoids, adsorbed, preservative free, for adult use (5 Lf of tetanus toxoid and 2 Lf of diphtheria toxoid) Juvenal Davila Other [facility] 05-06-2015 influenza virus vaccine, split virus (incl. purified surface antigen) Juvenal Davila Other [facility] [employer] Other 05-06-2015 influenza virus vaccine, unspecified formulation [facility] Payers Date Payer Category Payer Medicare [id number] 1961 Unknown [id number] 1955 Unknown [id number] 2.16.84 [id number] 1955 Unknown [id number] 2.16.84 [id number] 1955 Unknown [id number] [id number] 1955 Unknown [id number] 2.16.84 [id number] 1955 Unknown [id number] 2.16.84 [id number] Medicare [id number] 2. [id number] Social History Date Type Detail Facility Start: 09-06-2021 End: 11-19-2024 Tobacco smoking status Never smoked tobacco (finding) [facility] Tobacco smoking status Never [facility] Sex Assigned At Male [facility] Start: 1955 Sex Assigned At Male [facility] Start: 11-19-2024 Sex Male (finding) [facility] Functional Status Date Assessment Result Facility 10-04-2022 Functional Status N/A [facility] Clinical Notes 10-04-2022 to 05-17-2023 Note Date & Type Note Facility 05-17-2023 Evaluation note Encounter Date Diagnosis Assessment Notes Apr, Nonrheumatic aortic (valve) stenosis (ICD-10 - I35.0) s/p SAVR No longer f/u with [facility]. Denies CP, palpitations or lightheadedness Denies SOB, [...] 13gms No s/s GIB Last colonoscopy 2020 [employer] Other 08-29-2023 Evaluation note* Encounter Date Diagnosis Assessment Notes Treatment Notes Treatment Clinical Notes Mar, Acute blood loss anemia (ICD-10 - D62) [employer] Other 03-13-2023 Evaluation note* Encounter Date Diagnosis [...] High risk medication use (ICD-10 - Z79.899) [employer] Other 02-08-2023 Hospital Discharge instructions Patient Education [...] if anything looks unusual. Men with a amevox-ofwb-ylegbh risk for skin cancer may want to see a capacity management specialist (loan originator) for an annual body check. Where to find more information National Cancer [place]: https://www.cancer.gov/about-cancer/screening Centers for Disease Control and Prevention: https://www.cdc.gov/cancer/dcpc/prevention/screening.htm [employer]: https://www.cancer.org/latest-news/7-wystcr-pwuyfthbg-vkmck-bke-ygm.html Contact a health care provider if: You [...] 05/10/2017 Document Revised: 05/02/2019 Document Reviewed: 05/10/2017 [employer] Patient Education 2020 [employer]. Follow Up Care 09/06/2021 09:13:29 With:ROHINI FRY PA-C, URL Address: [address] [place] [address] [place] [address] When: Unknown [facility] evaluation + Plan note Future Appointments Appointment Date:10/09/2023 08:30:00 AM Scheduled Provider:ROHINI FRY PA-C Location:[facility] Appointment Type:URO Office Visit Diagnostic Tests Pending * PSA Total 10/04/22 [facility] evaldnpare noteNo [place] [employer] Other Evaluation note* Diagnosis Onset Date Resolution Status Hypercholesterolemia acute Hypertension acute IFG (impaired fasting glucose) acute Nonrheumatic aortic (valve) stenosis acute Prostate cancer acute Medicare annual wellness visit, subsequent noneactive [facility] Work Phone: Evaluation note* Diagnosis Onset Date Resolution Status Anemia acute Hypercholesterolemia acute Hypertension acute IFG (impaired fasting glucose) acute Nonrheumatic aortic (valve) stenosis acute Prostate cancer acute [facility] Work Phone: Evaluation note* Diagnosis Onset Date Resolution Status Admit Date Anemia acute November 19 8:24am Hypercholesterolemia acute Archie h 2024 8:24am Hypertension acute November 19, 2024 8:24am IFG (impaired fasting glucose) acute November 19, 2024 8:24am Nonrheumatic aortic (valve) stenosis acute November 19, 2024 8:24am Prostate cancer acute October 8:24am Medicare annual wellness vis it, subsequent noneactive November 19, 2024 8:24am [facility] Work Phone: History general Narrative - Reported* [...] CRANIOTOMY 2018 Hospitalization History SEE SURGICAL HX [employer] Other Hospital course Narrative No data available for this section [facility] progress note No data available for this section [facility] Summary Purpose Family History No Family History [...] glucose) Nonrheumatic aortic (valve) stenosis Prostate cancer Chief Complaint Admit Date Wellness November 19, 2024 8:2 4am Reason for Visit Admit Date Anemia November 19, 2024 8:2 4am Hypercholesterolemia November 19, 2024 8: 24am Hypertension November 19, 2024 8:2 4am IFG (impaired fasting glucose) October 8:24am Nonrheumatic aortic (valve) stenosis Mar 2024 8:24am Prostate cancer November 19, 2024 8:2 4am Medicare annual wellness visit, subseque nt November 19, 2024 8:24am Additional Source Comments (unrecognized sect ion and content) No Status Records FoundNo Status Records FoundNo Status Records FoundNo Status Records Found INFORMATION SOURCE (unrecogn ized section and content) DATE CREATED AUTHOR 02/11/2018 [facility] DATE CREATED AUTHOR AUTHOR'S ORGANIZ ATION 11/13/2022 [facility] DATE CREATED AUTHOR AUTHOR'S ORGANIZ ATION 11/03/2023 [facility] DATE CREATED AUTHOR AUTHOR'S ORGANIZ ATION 12/29/2023 [facility] EPIC Patient Care team informatio n (unrecognized section and content) Team Status: Active Member Role Status Dates Juvenal Davila DO Primary Care Provider Active Team Status: Inactive Member Role Status Dates Juvenal Davila DO Primary Care Provide r, Attending Provider Active Start: May 20, 2024 End: May 20, 2024 Team Status: Active Member Role Status Dates [...] Provide r, Attending Provider Active Start: November 19, 2024 End: November 19, 2024 REASON FOR VISIT (unrecogniz ed section [...] BE BASED ON THE PRIMARY CLINICAL RECORDS. [facility]. provides no warranty or guarantee of the accuracy or completeness of information in this document.
[2024-11-20 07:37] LABS: Basophils Absolute Auto 0.1 10^3/uL (0.0-0.1); Basophils Percent Auto 1.3 % (0.2-2.0); Eosinophils Absolute Auto 0.3 10^3/uL (0.0-0.7); Eosinophils Percent Auto 5.1 % (0.9-7.0); Hematocrit 42.5 % (42.0-54.0); Hemoglobin 14.1 g/dL (14.0-18.0); Immature Granulocytes Abs Auto 0.03 10^3/uL (0.00-0.03); Immature Granulocytes Pct Auto 0.5 % (0.0-0.5); Lymphocytes Absolute Auto 2.2 10^3/uL (1.2-3.8); Lymphocytes Percent Auto 35.6 % (20.5-60.0); Mean Corpuscular HGB Conc 33.2 g/dL (29.9-35.2); Mean Corpuscular Hemoglobin 29.4 pg (25.9-34.0); Mean Corpuscular Volume 88.5 fL (80.0-94.0); Mean Platelet Volume 10.7 fL (9.5-13.5); Monocytes Absolute Auto 0.6 10^3/uL (0.3-0.8); Monocytes Percent Auto 10.5 % (1.7-12.0); Neutrophils Absolute Auto 2.9 10^3/uL (1.4-6.5); Platelet Count 213 10^3/uL (150-450); Red Cell Distribution Width 12.6 % (11.0-15.0); White Blood Count 6.1 10^3/uL (4.0-11.0)
[2024-11-20 07:54] LABS: Estimated Average Glucose 114 mg/dL; Glycohemoglobin A1C 5.6 % (4.5-6.2)
[2024-11-20 08:45] LABS: Alanine Aminotransferase 44 U/L (16-63); Albumin Globulin Ratio 1.2; Alkaline Phosphatase 72 U/L (46-116); Aspartate Amino Transferase 24 U/L (15-37); BUN Creatinine Ratio 14.8; Bilirubin Total 0.9 mg/dL (0.2-1.0); Calcium 9.2 mg/dL (8.5-10.1); Carbon Dioxide 27.2 mmol/L (21.0-32.0); Chloride 108 mmol/L (98-107); Chol HDL Ratio 2.7; Cholesterol 148 mg/dL (<=200); Estimated GFR (African America >60 (>=60 mL/min/1.73m^2); Estimated GFR (Non-African Ame >60 (>=60 mL/min/1.73m^2); Globulin 3.3 g/dL; Glucose 104 mg/dL (74-106); HDL Cholesterol 54 mg/dL (40-60); LDL Cholesterol Calculated 65.6 mg/dL; Potassium 4.2 mmol/L (3.5-5.1); Sodium 143 mmol/L (136-145); Total Protein 7.3 g/dL (6.4-8.2); Triglycerides 142 mg/dL (<=150); VLDL CHOLESTEROL 28.4 mg/dL
[2024-11-20 08:59] LABS: Prostate Specific Antigen Scrn <0.13 ng/mL (<=4.00)
== END 2024-11-20 06:52 | disposition home or self-care (01) ==
LOC: LAB 06:53
PROVIDERS: PCP Internal Medicine; Visit Provider Internal Medicine
DX: R73.01 Impaired fasting glucose (principal); E78.00 Pure hypercholesterolemia, unspecified; I10 Essential (primary) hypertension; C61 Malignant neoplasm of prostate; Z12.5 Encounter for screening for malignant neoplasm of prostate
CPT/HCPCS: 36415; 80053; 80061; 83036; 85025; G0103

== ENCOUNTER 2025-08-21 10:06 | Outpatient (OUT) | payer MEDICARE, SELFPAY ==
--- OUTSIDE RECORDS SUMMARY | 2025-08-18 06:54 | XMS_ITS | Continuity of Care Document ---
Author Organization [facility] Address [address] [place] [address] Phone Care Team Providers Care Non Profit Financial Controller Name Role Phone Juvenal Davlia DO Primary Care Provider Juvenal Davila DO Attending Provider Care Teams Patient Care Team Team Status: Active Member Role/Relationship Status Dates Juvenal Davila DO Primary Care Provider Active Visit Care Team Team Status: Inactive Member Role/Relationship Status Dates Juvenal Davila DO Primary Care Provider Active Start: June 29, 2025 End: June 29emanuel Davila DOAttaureliano ProviderActiveStart: June 29, 2025 End: June 29, 2025 Patient Care Team Team Status: Inactive Member Role/Relationship Status Dates Juvenal Davila DO Primary Care Provider Active Start: August 18, 2025 End: August 18Roseanne James ProviderActiveStart: August 18, 2025 End: August 18, 2025 Chief Complaint and Reason for Visit Chief Complaint Admit Date 6 month f/u June 29, 2025 2 :26pm cortisone shot for shoulder July 10:47am Reason for Visit Admit Date Hypercholesterolemia June 29, 2025 2:26pm Hypertension June 29, 2025 2 :26pm IFG (impaired fasting glucose) June 29, 2025 2:26pm Nonrheumatic aortic (valve) stenosis Nov 2024 2:26pm Prostate cancer June 29, 2025 2 :26pm Right shoulder pain August 18, 2025 10:47am Allergies, Adverse Reactions, Alerts Allergen Type Severity Reaction Last Updated Verified Status No Known Allergies Allergy Unknown August 18, 2025 10:49amYesActive Social History Smoking Status Status Start Date End Date Date of Observa tion Never smoked tobacco (finding) November 19, 2024 8:29am Observation Status Observation Response Date of Response Legal Sex [facility] (finding) [facility] 1954 Problems Active Problems Problem Diagnosis/Recorded Date Onset Date Status Jessica urban COVID August 14, 2024 9:50am Unknown Active Nonrheumatic aortic (valve) stenosisMar 2023 9:27pmUnknownActiveSAVR erumen impactionSeptember 2023 8:31amUnknownActiveProstate cancer October 30, 2023 5:40pmUnknownActiveradical prostatectomy - 2016,PSA: < 0.13 - 3/nemiaSeptember 2023 8:23amUnknownActiveCoughDecember 2023 10:01amUnknownActiveHypercholesterolemiaFirelands [facility] 2023 9:28pmUnknownActiveIFG (impaired fasting glucose)November 13, 2023 9:28pmUnknownActiveAllergy to bee stingOct 2023 9:07amUnknownActiveEssential hypertensionFirelands Regional Medical Center South Campus 2023 9:07amUnknownActiveRight shoulder painDecember 2024 11:36amUnknownActive Adenomatous polyp of ascending colonMar 2023 9:07amUnknownActive Colonoscopy 2020HypertensionMar 2023 9:28pmUnknownActive Medications Medication Status Dose Units Route Directions Qty Days Refills S tart Date Stop Date End Date Reason(s) Instructions Adherence Aspirin 81 mg tablet,delayed release (DR/EC) Discontin ued 0 .ROUTE.ODKNREU995Pco 2023 12:14pmMay 2023 5:13pmTAKE 1 TABLET BY MOUTH EVERY DAYAspirin 81 mg tablet,delayed release (DR/EC)Kcvfzgxsttmr53HWWZUkwfm6243 3May 2023 5:13pmJuly 2024 7:36pmAtorvastatin 40 mg tabletDiscontinued 0.ROUTE.TDCQPCG704Xrea 2023 6:39amJuly 2024 6:22amTAKE 1 TABLET BY MOUTH EVERY DAY IN THE EVENINGMetoprolol Succinate 25 mg tablet extended release 24 hrDiscontinued0.ROUTE.QRJIPLF898Xfws 2023 9:06amJuly 2024 5:46am TAKE 1 TABLET BY MOUTH EVERY DAYAtorvastatin 40 mg tabletActive0.ROUTE.ZPSZCHS15 3July 2024 6:22amTAKE 1 TABLET BY MOUTH EVERY DAY IN THE EVENINGComplies with drug therapyMetoprolol Succinate 25 mg tablet extended release 24 hrActive0 .ROUTE.QMGAVUR065Qfuf 2024 5:46amTAKE 1 TABLET BY MOUTH EVERY DAYComplies with drug therapyAspirin 81 mg tablet,delayed release (DR/EC)Active0.ROUTE .PCZJXXI272Hery 2024 7:36pmTAKE 1 TABLET BY MOUTH DAILYComplies with drug therapyEpinephrine 0.3 mg/0.3 mL auto-injectorDiscontinuedIMFirelands Regional Medical Center South Campus 2023 11:00pmJuly 2024 11:11amINJECT 1 PEN NEEDED FOR BEE STING AFTER WHICH SHOULD BE EVALUATED IN ERAspirin 81 mg tablet,delayed release (DR/EC) Gosntexurelg23PEILRltegZxprb 2023 11:00pmMay 2023 12:14pmMetoprolol Succinate 25 mg tablet extended release 24 oqLsvoduzhdzez09TBCKKcaxkUqekh 2023 11:00pmJuly 2023 9:06amAtorvastatin 40 mg vehbokLqwgjbtcliil75HCZO Every eveningFirelands Regional Medical Center South Campus 2023 11:00pmJune 2023 6:39amNirmatrelvir- Ritonavir (Paxlovid) 300 mg (150 mg x 2)-100 mg tablets,dose bocnOkynwiphokad0TG .IMCSUXN273Vlcgbqoi 2023 12:00amMarch 2024 7:26amtake TWO 150 mg tablets of nirmatrelvir with ONE 100 mg tablet of ritonavir twice daily for 5 days POMeloxicam 15 mg gzxmkvEiqsid55HFDBMmoes88598Pcwdcueo 2024 12:00am Complies with drug therapyEpinephrine 0.3 mg/0.3 mL auto-injectorActive0.3MGIM .okk95Bxey 2024 11:11amINJECT 1 PEN NEEDED FOR BEE STING AFTER WHICH SHOULD BE EVALUATED IN ERComplies with drug therapy Immunizations Immunization Event Date Not Given Reason Dose Number Director Of Vital Statistics Lot Number Reason(s) Given Vaccine Information Statement (VIS) Detail Administration Location COVID-19 mRNA-1273 (Moderna) October 14, 2020 COVID-19 mRNA-1273 (Moderna)November 09OVID-19 mRNA-1273 (Moderna)July 11OVID-19 mRNA-1273 (Moderna)February 22, 2022Fluzone TIV High-Dose 65YR+ May 20, [id number] [facility] HospitalFl[facility] TIV High-Dose 65YR+ June 29, [id number] [facility] Hospitalinfluenza, unspecified formulationSeptember , 2014influenza, unspecified formulationOctober , 2017influenza, unspecified formulationNovember , 2018influenza, unspecified formulationOctober 2019influenza, unspecified formulationOctober 2020 influenza, unspecified formulationSeptember , 2021influenza, unspecified formulationSeptember neumococcal Conjugate Vaccine, 13 valentJune 2019Pneumococcal Polysacc. Vaccine, 23 valentMay 2020Tetanus, Diphtheria adult, 5 Lf pres free absSeptember 2015 Vital Signs Vital Reading Result Reference Range Collection Date/Time Height 69 [in_i] June 29, 2025 2:44ynPxurcr97.85 kgNov2024 2:40pmHeart Rate60 /qdt59-086Cltoxgbh 3rd, 2025 2:40pmRespiratory rate12 /kiz87-77Myycjjkj 3rd, 2025 2:40pmBP Imripnzt748 mm[Hg]100-140Nov2024 2:40pmBP Vdeivqkcb94 mm[Hg]60-100Nov2024 2:40pmBMI (Body Mass Index)26.3 kg/r5Ormgjhio2024 2:05qvYuarsm85 [in_i]August 18, 2025 10:11nxPwycpm53.32 kgDecember 2024 10:52amHeart Rate64 /fqq89-520GlkpntuxAugust 18, 2025 10:52amRespiratory rate12 /iwm66-13LugkxhexAugust 18, 2025 10:52amBP Tdowxttk688 mm[Hg]100-140August 18, 2025 10:52amBP Ssoeapncy07 mm[Hg]60-100August 18, 2025 10:52amBMI (Body Mass Index)26.8 kg/h7Xnsznvjo2024 10:52am Advance Directives Advance Directive Response Recorded Date/ Time Advance Directives No September 18, 2023 3:11pm Insurance Providers Guarantor Ramón Acuña Address [address] [place] [id number] Info.Home Phone: Payer Group Member ID Coverage Type Subscriber Relationship to Subscriber Effective Date Expiration Date Isabell MAUREEN PFFS Id: [id number] Acuña Id: [id number] [address] [facility] [address] Home Phone: Self Encounters Encounter Location(s) Arrival/Admit Date Discharge/Departure Date Discharge/Departure Disposition Provider(s) Departed Physician/ Provider Office Visit -[facility] June 29, 2025 2:26pm June 29, 2025 3:03pm Discharged to home care or self care (routine discharge) Juvenal Davila DO Departed Physician/ Provider Office Visit -[facility] August 18, 2025 10:47am August 18, 2025 11:52am Discharged to home care or self care (routine discharge) Juvenal Davila DO Recent Diagnosis Onset Date Admit Date Hypercholesterolemia Unknown June 2:26pm Hypertension Unknown June 29 2:26pm IFG (impaired fasting glucose) Unknown N ov2024 2:26pm Nonrheumatic aortic (valve) stenosis Unknown June 29, 2025 2:26pm Prostate cancer Unknown June 29 2:26pm Right shoulder pain Unknown July 10:47am Assessments Diagnosis Onset Date Resolution Status Admit Date Hypercholesterolemia acuteJune 29, 2025 2:26pmHypertensionacuteJune 295 2:26pmIFG (impaired fasting glucose)acuteNov2024 2:26pmNonrheumatic aortic (valve) stenosisacuteNov2024 2:26pmProstate canceracuteNov2024 2:26pmRight shoulder painacuteDeabrazo [facility] 2024 10:47am Plan of Treatment Author Juvenal [facility] 2024 3:05pmHis A1C is between 5.7-6.5%. Instructed on low carb, high fiber diet. Instructed on routine exercise program for 30-60min three times weekly. Instructed on correlation between obesity and insulin resistance and encouraged to lose weight. Monitor A1C every 6 months. Check A1C yearly I have instructed this patient to consume a healthy, low-fat, low-salt diet. I have also encouraged them to continue exercise with weight loss to achieve/maintain a BMI < 30. I have instructed this patient on the correct procedure for obtaining home BP measurements:? - rest for 5 minutes w/o talking. - positioned w/ feet on floor and arms supported. - average best 2/3 readings w/ goal < 135/85. - update office w/ home readings in 2 weeks. Continue Metoprolol without interruption I have instructed this patient on a low fat, high fiber diet and exercise. I have discussed the primary and secondary prevention benefits attributed to lowering LDL cholesterol. I have also discussed the medical treatment of elevated cholesterol, which is based on the 10 year ASCVD risk. 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 Echocardiogram at year 5 (2025) s/p radical prostatectomy w/o s/s recurrence - 2016 Serial PSA to monitor for recurrence. He denies dysuria or hematuria Author Juvenal [facility] 2024 11:43amRight shoulder SA injection, using sterile technique w/o complications. Patient aware that pain may worsen before improving. Patient instructed to rest for next 24 hours and use ice and Tylenol for pain. Future Tests Future scheduled test information is unavailable Pending Tests Test Name Ordered Date Scheduled Date XR shoulder RT min 2V* Betito 23rd, 2025 11:35 am Future Visits Future appointment information is unavailable Future Procedures Future procedure information is unavailable Future Medications Future medication information is unavailable Patient Instructions Patient instructions are unavailable
--- OUTSIDE RECORDS SUMMARY | 2025-08-21 10:12 | XMS_ITS | Continuity of Care Document ---
Author Organization [facility] Address [address] [place] [id number] Problems Unknown Problems Results Test Value / Unit Interpretation Reference Ran SARS-COV-2 (COVID19), NAAT[[id number]] Collected: 06/21/2020 04:31 PM Specimen Received: 06/22/2020 05:00 PM Source: [facility] SARS-CoV-2 INTERPRETATION [[id number]] Negative See NpjyGWTJ-OuF-6 RNA NOT DETECTEDNegative results do not preclude SARS-CoV-2 infection and should notbe used as the sole basis for patient management decisions. Negativeresults must be combined with clinical observations, patient history,and epidemiological information. Optimum specimen types and timingfor peak viral levels during infections caused by SARS-CoV-2 have notbeen determined. Collection of multiple specimens or types ofspecimens may be necessary to detect virus. Improper specimencollectionand handling, sequence variability under primers/probes,or organism present below the limit of detec tion may lead to falsenegative results. Positive and negative predictive values oftesting are highly dependent on prevalence. False negative testresults are more likely when prevalence is high.SOURCE [[id number]]NASOPHARYNGEALNote: Methodology is [employer] Real-Time RT-PCR. The expectedresult or reference range is NEGATIVE (Not Detected). For more information regarding COVID-19 testing to include clinicalinformation, methodology detail, intended use, FDA authorization andrecommended fact sheets for patients or healthcare providers, see NewTest Announcement: SARS-CoV-2 (COVID-19) by NAAT at URL below (note,fact sheets are provided by method given in report:[email or web address]/Alternatively, see downloadable PDF fact sheet at:[email or web address] Note: Methodology is [employer] Real-Time RT-PCR. The expectedresult or reference range is NEGATIVE (Not Detected). For more information regarding COVID-19 testing to include clinicalinformation, methodology detail, intended use, FDA authorization andrecommended fact sheets for patients or healthcare providers, see Table8 Announcement: SARS-CoV-2 (COVID-19) by NAAT at URL below (note,fact sheets are provided by method given in report:[email or web address]/ Alternatively, see downloadable PDF fact sheet at:[email or web address]-[email or web address] Allergies, adverse reactions, alerts No known allergies and adverse reactions Medications No administered medications reported Vital Signs No vital signs reported Social History No smoking Hx information available
--- OUTSIDE RECORDS SUMMARY | 2025-08-21 10:12 | XMS_ITS | Clinical Summary ---
Author Organization [facility] Address [address], [address] [place] [address] Care Team Providers Care Storeroom Keeper Name Role Phone Juvenal Davila DO Primary Care Provider [phone] Allergies No known active allergies Medications MedicationSigDispense QuantityRefillsLast FilledStart DateEnd DateStatus acetaminophen (TYLENOL) 325 MG tablet Take 2 tablets by mouth every 4 hours as needed for Pain 120 tablet Active amLODIPine (NORVASC) 5 MG tablet Take 1 tablet by mouth daily 30 tablet 01/25/2018Active Active Problems ProblemNoted DateDiagnosed DateProstate pbzybl0601/21/20180006Pmrzand30/28/2018Chronic back pain01/21/2018Essential gihduezifcqr54/28/2018Midline shift of brain 01/21/20183508Pjndhie76/27/2018Chronic subdural hematomaS/P craniotomyHistory of prostate cancer Social History Tobacco UseTypesPacks/DayYears UsedDateSmoking Tobacco: NeverSmokeless Tobacco: NeverAlcohol UseStandard Drinks/WeekCommentsNo0 (1 standard drink = 0.6 oz pure alcohol)Sex and Gender InformationValueDate RecordedSex Assigned at BirthNot on fileLegal ExiKxse8710/06/2012 9:46 AM ESTGender IdentityNot on fileSexual OrientationNot on file Last Filed Vital Signs Vital SignReadingTime TakenCommentsBlood Myittjcs221/9602/06/2018 9:18 AM EDTPt did not take BP medication this rkamixqEctop1669/13/2018 9:18 AM EDTTemperature 36.6 ??C (97.8 ??F)01/24/2018 8:04 AM EDTRespiratory Mxdv2487/ 8:04 AM EDTOxygen Bbifindmaj74%01/24/2018 10:04 AM EDTInhaled Oxygen Concentration-- Dnsmrf69.2 kg (179 lb)02/06/2018 8:56 AM HZDXrxjsm346.3 cm (5' 9 )02/06/2018 8:56 AM EDTBody Mass Index26.43002/06/2018 8:56 AM EDT Plan of Treatment Not on file Medical Devices ImplantedTypeAreaManufacturerDevice IdentifierShelf Expiration DateModel / Serial / LotPlate Cranl Str Mini 2 Hl 12mm Implanted:Qty[facility] 3 [facility]ate/Nail/RodLeft: CranialSTRYKER: ORTHOPAEDICS-[id number] / / Screw Self Drilling 1.5x5mm Min Order 5 Implanted:Qty: 6 on 01/22/2018 by Tomer [facility] DO at [facility]/Plate/Nail/RodLeft: CranialSTRYKER: ORTHOPAEDICS-[id number] / / Insurance Advance Directives * Full Code (Latest Code Status on File) Date ActivatedDate InactivatedComments01/22/2018 6:31 PM01/24/2018 2:27 PM * Full Code Date ActivatedDate InactivatedComments01/21/2018 1:54 AM01/22/2018 6:31 PM Care Teams Team MemberRelationshipSpecialtyStart DateEnd Date Juvenal Davila DO PCP - GeneralInternal Medicine01/21/18
--- OUTSIDE RECORDS SUMMARY | 2025-08-21 10:12 | XMS_ITS | Clinical Summary ---
Author Organization [facility] Address [address] [place] [address] Care Team Providers Care Cryptozoologist Name Role Phone Juvenal Davila DO Primary Care Provider [phone] Allergies No known active allergies Medications MedicationSigDispense QuantityRefillsLast FilledStart DateEnd DateStatus Aspirin Low Dose 81 MG EC tablet Take 81 mg by mouth Daily09/29/2023ctive atorvastatin (Lipitor) 40 MG tablet Take 40 mg by mouth in the fdphlpr3711/03/2023ctive metoprolol succinate XL (Toprol-XL) 25 MG 24 hr tablet Take 25 mg by mouth Daily09/29/2023ctive EPINEPHrine (Epipen) 0.3 MG/0.3ML injection syringe INJECT 1 PEN NEEDED FOR BEE STING AFTER WHICH SHOULD BE EVALUATED IN ER 08/29/2023ctive Family History RelationNameStatusCommentsMotherDeceased Social History Tobacco UseTypesPacks/DayYears UsedDateSmoking Tobacco: NeverSmokeless Tobacco: Never Tobacco Cessation:Counseling Given: Not Answered Alcohol UseStandard Drinks/WeekCommentsYes0 (1 standard drink = 0.6 oz pure alcohol)Sex and Gender InformationValueDate RecordedSex Assigned at BirthNot on fileLegal SjyNyxw4611/08/2022 6:59 PM EDTGender IdentityNot on fileSexual OrientationNot on file Plan of Treatment Not on file Insurance Care Teams Team MemberRelationshipSpecialtyStart DateEnd Date Juvenal Davila DO PCP - GeneralInternal Medicine12/24/23
--- OUTSIDE RECORDS SUMMARY | 2025-08-21 10:12 | XMS_ITS | Patient Health Record ---
Author Organization [facility] Address [address] [place], [place] [address] Care Team Providers Care Sand Hauler Name Role Phone CarinaGael bass Unavailable [phone] Linnette Julien Unavailable [phone] Allergies No Known Allergies Reason For Referral No Information Medications Medication SIG (Take, Route, Frequency, Duration) Notes Start Date End Date Status Atorvastatin Calcium 40 MG Tablet TAKE 1 TABLET BY MOUTH EVERY DAY IN THE EVENING Oral; Duration: 90 Days ActiveMetoprolol Succinate ER 25 MG Tablet Extended Release 24 HourOral; Duration: 90 DaysActiveAmoxicillin 500 MG Capsule4 capsules Orally One hour prior to dental appointment; Duration: 1 days5ActivePaxlovid (300/100) 20 x 150 MG & 10 x 100MG Tablet Therapy PackTAKE 2 TABLETS (NIRMATRELVIR) AND TAKE 1 TABLET (RITONAVIR) BY MOUTH TWICE A DAY FOR 5 DAYS Oral; Duration: 5 Days Not-Taking/PRNAspirin Low Dose 81 MG Tablet Delayed ReleaseTAKE 1 TABLET BY MOUTH EVERY DAY Oral; Duration: 90 DaysActive Social History Tobacco Use: Social History Observation Description Date Details (start date - stop date) Never Smoker NA - NA Sex Assigned At : Social History Observation Description Sex Assigned At Male Social History Tobacco Use:Social InfoQuestionAnswerNotesTobacco Control (Standard)Tobacco use: Nonsmoker Problems Problem Type SNOMED Code ICD Code Onset Dates Problem Status W/U Status Risk Notes Problem Body mass index 25-29 - overweig ht ([id number]) BMI 25.0-25.9,adult (Z68.25) Activeconfirmed Vital Signs Heart Rate 85 /min 06/29/2025 Height-cm175.26 cm06/29/2025lood pressure otinbpomi44 mm Hg06/29/2025Weight-kg 78.47 kg06/29/20259340Cdgdus96 in06/29/2025lood pressure zirngrwu032 mm Hg 06/29/20256990Uaybzu811 lbs108/29/2024BMI25.54 kg/m206/29/2025 Encounters Encounter Location Date Provider Diagnosis [facility] [address] [place], [place] [id number] 10/15/2024 Gael Cunha BMI 25.0-25.9,adul t Z68.25 ; Dietary counseling Z71.3 ; Exercise counseling Z71.82 ; Encounter for screening for dental disorders Z13.84 ; Dental caries into dentine K02.62 ; Caries of dentin K02.62 and Encounter for dental examination and cleaning without abnormal findings Z01.20 [facility] [address] [place], [place] [id number] 10/31/2024 Gael Cunha Encounter for dent al examination and cleaning without abnormal findings Z01.20 [facility] [address] [place], [place] [id number] 06/29/2025 Gael Cunha Encounter for dent al examination and cleaning with abnormal findings Z01.21 [facility] [address] [place], [place] [id number] 10/31/2024 Gael Lim [facility] [place], [place] [address]/28/2025Cpaul Julien Assessments Encounter Date Diagnosis (ICD Code) Assessment Notes Treatment Notes Treatment Clinical Notes Section Notes 10/15/2024 BMI 25.0-25.9,adult (ICD-10 - Z6 8.25) 10/31/2024Encounter for dental examination and cleaning without abnormal findings (ICD-10 - Z01.20)06/29/2025Encounter for dental examination and cleaning with abnormal findings (ICD-10 - Z01.21)10/15/2024Dietary counseling (ICD-10 - Z71.3)10/15/2024Exercise counseling (ICD-10 - Z71.82)10/15/2024 Encounter for screening for dental disorders (ICD-10 - Z13.84)10/15/2024Dental caries into dentine (ICD-10 - K02.62)5Caries of dentin (ICD-10 - K02.62)10/15/2024Encounter for dental examination and cleaning without abnormal findings (ICD-10 - Z01.20) Plan Of Treatment Next Appt Details Provider Name:Gael Cunha , 12/31/2025 10:45:00 AM, [address] [place] [address], [phone], Insurance Providers Payer Name Payer Address Payer Phone Subscriber Number Group Number Insured Name Patient Relationship to Insured Coverage Start Date Coverage End Date [facility] [address] [place], [place] [id number] Ramón Ovalle Self - patient is the insured 3
--- OUTSIDE RECORDS SUMMARY | 2025-08-21 10:12 | XMS_ITS | Clinical Summary ---
Author Organization [employer] [facility] Address [id number] [address] [place] [address] Care Team Providers Care Laboratory Technical Specialist Name Role Phone Juvenal Davila DO Primary Care Provider [phone] Allergies No known active allergies Medications MedicationSigDispense QuantityRefillsLast FilledStart DateEnd DateStatus metoprolol tartrate (LOPRESSOR) 25 mg tablet Take 1 tablet (25 mg total) by mouth daily. 1 tablet 01/31/2021ctive aspirin 81 mg Indications:Follow-up visit for aortic valve replacement with bioprosthetic valveTake 1 tablet (81 mg total) by mouth daily. 30 tablet 111ctive Active Problems ProblemNoted DateDiagnosed DateAortic gkzxfusc25/22/2021ssential hypertension 01/10/2021ortic stenosis, bjghth7006/17/2020 Overview (06/17/2020): Added automatically from request for surgery [id number] Nonrheumatic aortic (valve) eoqwatsr91/21/2020 Resolved Problems ProblemNoted DateDiagnosed DateResolved DateLong term (current) use of vsfnrlnsywiwjy20/02/202110/03/2021Nonrheumatic aortic valve dkwcqayv74/26/2021 06/03/2021 Immunizations ImmunizationAdministration DatesNext DueCOVID-19, mRNA, LNP-S, PF, 100mcg/0.5mL Dose11/09/2020,10/14/2020 Family History Medical HistoryRelationNameCommentsNo Known ProblemsFatherNo Known Problems MotherAnesthesia problemsNeg HxRelationNameStatusCommentsFatherDeceasedMother Alive Social History Tobacco UseTypesPacks/DayYears UsedDateSmoking Tobacco: NeverSmokeless Tobacco: Never Tobacco Cessation:Counseling Given: No Alcohol UseStandard Drinks/WeekCommentsYes4 (1 standard drink = 0.6 oz pure alcohol)DAILYChildcareAnswerDate RxlgovxcGvwnxzhvpVwslkrp46/12/2019Employment AnswerDate QhyngvspXpeuqarfiuYpcntae19/12/2019Purpose - LifeAnswerDate Recorded Purpose and direction in sgniTtqcndu46/11/2021ex and Gender InformationValue Date RecordedSex Assigned at BirthNot on fileLegal AmjLueb8704/01/2015 11:36 AM EDTGender IdentityNot on fileSexual OrientationNot on file Last Filed Vital Signs Vital SignReadingTime TakenCommentsBlood Yqenbnyd342/8010 10:31 AM EDT Lxaok549306/03/2021 10:31 AM KIGKkcrwnbpgrb28.4 ??C (97.6 ??F)03/02/2021 11:07 AM EDTRespiratory Pxet051903/02/2021 11:07 AM EDTOxygen Ogotbwdomh11%06/03/2021 10:31 AM EDTInhaled Oxygen Concentration--Ktdjli77.2 kg (176 lb 12.8 oz)06/03/2021 10:31 AM MFBRbsdeh719.7 cm (5' 8 )06/03/2021 10:31 AM EDTBody Mass Index26.88 06/03/2021 10:31 AM EDT Plan of Treatment Health MaintenanceDue DateLast DoneCommentsDepression Cpnpysblk99/29/1965Tobacco Mvlfdeobl46/29/1965Adult BMI Pqwwnkarp48/29/1971DTaP,Tdap and Td Vaccines (1 - Tdap)1972Zoster (Shingles) Vaccine (1 of 2)2003Fall Risk Screening 2018COVID-19 Vaccine ( season)/, 07/11/2021, 11/09/2020, Additional history existsInfluenza Jwvpyxj13/01/78598205/22/2022, 07/12/2020RSV ( or age 60+ yrs) (1 - 1-dose 75+ series)2028 Goals GoalPatient Goal TypeAssociated ProblemsRecent ProgressPatient-Stated?Author Discharge Deepali Jones, RN Note: Evaluation of progress towards goal: Patient states discharge plan is home with [facility] and supportiveassistance from . [facility] has been tasked to send referral to [facility]. Patient to schedule own followup appointments as well as arrange own discharge transportation. No further needs at this time. CN will continue to follow this patient. Medical Devices ImplantedTypeAreaManufacturerDevice IdentifierShelf Expiration DateModel / Serial / LotVlv Artc 25mm Eagle - [id number] - [id number] Implanted:Qty: 1 on 02/15/2021 [facility]Implant ValveN/A: Heart Aortic ValveEdSt. James Hospital and Clinic Buhuceya32/07/2025 [id number] / [id number] / [id number] Insurance Advance Directives * Full Code (Latest Code Status on File) Date ActivatedDate InactivatedComments02/15/2021 11:49 AM02/19/2021 4:34 PM Care Teams Team MemberRelationshipSpecialtyStart DateEnd Date Juvenal Davila DO PCP - GeneralInternal Xkhkoeky88/9/20
--- OUTSIDE RECORDS SUMMARY | 2025-08-21 10:12 | XMS_ITS | Clinical Summary ---
Author Organization [facility] Address [address] [place] [address] Care Team Providers Care Gardener Florist Name Role Phone Unavailable Primary Care Provider Unavailabl e Social History Tobacco UseTypesPacks/DayYears UsedDateSmoking Tobacco: Never AssessedSex and Gender InformationValueDate RecordedSex Assigned at BirthNot on fileLegal Sex Male02/22/2022 9:53 PM EDTGender IdentityNot on fileSexual OrientationNot on file Plan of Treatment Not on file
--- NOTE | 2025-08-21 10:22 | XR_ITS ---
The [address] [address] Patient Name: RENETTA ACUÑA MRN: [id number] date: 1955 Sex: M Assigned Patient Location: RAD Current Patient Location: [facility] Accession/Order Number: [id number] Exam Date: 08/21/2025 10:28 Report Date: 08/21/2025 11:28 At the request of: XAVI BELLA DO Procedure: XR shoulder RT min 2V RIGHT SHOULDER - 3 views CLINICAL HISTORY: Chronic right shoulder pain for several years. No recent injury. COMPARISON: None AP, Y and Grashey views were obtained. There is osteopenia. There is no acute fracture or dislocation. Hypertrophy is seen at the acromioclavicular joint. There is also minor degenerative change at the greater tuberosity. There are no significant soft tissue abnormalities. XR/XR shoulder RT min 2V IMPRESSION: OSTEOPENIA AND MINOR DEGENERATIVE CHANGE. NO ACUTE BONY FINDINGS. Impression dictated by: Fernanda Gallagher M.D. 08/21/2025 11:28 AM Dictation Location: [employer] Electronically authenticated by: [id number] Y Date: 08/21/2025 11:28
== END 2025-08-21 10:07 | disposition home or self-care (01) ==
PROVIDERS: PCP Internal Medicine; Visit Provider Internal Medicine
DX: M25.511 Pain in right shoulder (principal); M85.88 Other specified disorders of bone density and structure, other site
CPT/HCPCS: 73030